=== PATIENT | male | born 1940 | race Caucasian/White ===

== ENCOUNTER 2025-07-29 12:15 | Emergency (ER) | payer MEDICARE, SELFPAY ==
--- OUTSIDE RECORDS SUMMARY | 2025-06-03 07:02 | XMS_ITS | Encounter Summary ---
Author Organization [facility] Address [address] [id number] Care Team Providers Care Beck Tender Name Role Phone Tapan Hill MD Primary Care Provid er Reason for Referral * Imaging (Routine) - Closed Specialty Diagnoses / Procedures Referred By Contac t Referred To Contact Radiology Diagnoses Cancer of oral cavity Procedures CT Soft Tissue Neck w IV Contrast Alexandro Azevedo PA [address] [address] Phone: tel: fax: Referral ID Status Reason Start Date Expiration Date Visits Re quested Visits Authorized [id number] Closed 03/11/2024 09/10/2025 1 1 * Imaging (Routine) - Closed Specialty Diagnoses / Procedures Referred By Contac t Referred To Contact Radiology Diagnoses Cancer of oral cavity Procedures CT Chest w IV Contrast Alexandro Azevedo PA [address] [address] Phone: tel: fax: Referral ID Status Reason Start Date Expiration Date Visits Re quested Visits Authorized [id number] Closed 03/11/2024 09/10/2025 1 1 Reason for Visit * Imaging (Routine) - Closed Specialty Diagnoses / Procedures Referred By Contac t Referred To Contact Radiology Diagnoses Cancer of oral cavity Procedures CT Soft Tissue Neck w IV Contrast Alexandro Azevedo, ESTHER [address] [place] [address] Phone: tel: fax: Referral ID Status Reason Start Date Expiration Date Visits Re quested Visits Authorized [id number] Closed 03/11/2024 09/10/2025 1 1 Encounter Details Date Type Department Care Team (Latest Contact Info) Description 06/03/2025 7:02 AM EDT - 06/03/2025 11:59 PM EDT Hospital Encounter [facility] [address] [place] [id number] Cancer of oral cavity ([facility]/HCC) Discharge Disposition: Home or Self Care Social History Tobacco Use Types Packs/Day Years Used Date Smoking Tobacco: Former Cigarettes 0.5 15 0 10/29/1957 - 1972 Passive Smoke Exposure: Past Smokeless Tobacco: Never Alcohol Use Standard Drinks/Week Comments Never 0 (1 standard drink = 0.6 oz pur e alcohol) PHQ-2 Answer Date Recorded Patient Health Questionnaire-2 Score 0 06/03/2025 PHQ-9 Answer Date Recorded Patient Health Questionnaire-9 Score 2 06/03/2025 Sex and Gender Information Value Date Recorded Sex Assigned at Not on file Legal Sex Male 6:55 PM EDT Gender Identity Not on file Sexual Orientation Not on file documented as of this encounter Functional Status * Are you deaf or do you have serious difficulty hearing? Answer Date of Assessment Author No 04/15/2021 1:20 PM BENJAMINT Adonay Mejias mma K * Are you blind or do you have serious difficulty seeing, even when wearing glasses? Answer Date of Assessment Author No 04/15/2021 1:20 PM BENJAMINT Adonay Mejias mma K * Do you have serious difficulty walking or climbing stairs? Answer Date of Assessment Author No 04/15/2021 1:20 PM Adonay Graves mma K * Do you have serious difficulty dressing or bathing? Answer Date of Assessment Author No 04/15/2021 1:20 PM BENJAMINT Adonay Mejias mma K * Because of a physical, mental, or emotional condition, do you have serious difficulty doing errandsalone such as visiting the doctor? Answer Date of Assessment Author No 04/15/2021 1:20 PM Adonay Graves K * Over the past 2 weeks, how often have you been bothered by any of the following problems? Question Answer Date of Assessment Author Little interest or pleasure in doing things Not at all 06/03/2025 9:09 AM Olga Lidia Elizalde Feeling down, depressed, or hopeless Not at all 06/03/2025 9:09 AM Olga Lidia Elizalde Patient Health Questionnaire -2 Score 0 06/03/2025 9:09 AM Olga Lidia Elizalde * Question Answer Date of Assessment Author Trouble falling or staying asleep, or sleeping too much Not at all 06/03/2025 9:09 AM lOga Lidia Elizalde Feeling tired or having little energy Several days 06/03/2025 9:09 AM Olga Lidia Elizalde Poor appetite or overeating Several days 06/03/2025 9: 09 AM Olga Lidia Elizalde Feeling bad about yourself - or that you are a failure or have let yourself or your family down Not at all 06/03/2025 9:09 AM Olga Lidia Elizalde Trouble concentrating on things, such as reading the newspaper or watching television Not at all 06/03/2025 9:09 AM Olga Lidia Elizalde Moving or speaking so slowly that other people could have noticed? Or the opposite - being so fidgety or restless that you have been moving around a lot more than usual. Not at all 06/03/2025 9:09 AM Olga Lidia Elizalde Thoughts that you would be better off or hurting yourself in some way Not at all 06/03/2025 9:09 AM Aliyah Elizalde Patient Health Questionnaire-9 Score 2 06/03/2025 9:09 AM Love Elizalde * How difficult have these problems made it for you to do your work, take care of things at home, or get along with other people? Answer Date of Assessment Author Very difficult 06/03/2025 9:09 AM Adonay Elizalde * How difficult have these problems made it for you to do your work, take care of things at home, or get along with other people? Answer Date of Assessment Author Somewhat difficult 06/03/2025 9:09 AM EDT Olga Lidia Phelan documented as of this encounter Mental Status * Because of a physical, mental, or emotional condition, do you have serious difficulty concentrating, remembering, or making decisions? (5 years old or older) Answer Entry Date Author No 04/15/2021 1:20 PM EDAdonay Pickard documented in this encounter Medications at Time of Discharge acetaminophen (Tylenol) 325 MG tablet Take 2 tablets by mouth every 6 hours as needed. aluminum & magnesium hydroxide-simethico ne (Mylanta) 200-200-20 MG/5ML oral suspension Take 30 mL by mouth every 6 (six) hours if needed for indigestion or heartburn. ASPIRIN 81 PO Take 1 tablet by mouth 1 (one) time each day. atorvastatin (Lipitor) 80 MG tablet 09/02/2022 bisoprolol (Zebeta) 5 MG tablet Take 0.5 tablets (2.5 mg) by mouth 1 (one) time each day. 10/24/2021 carboxymethylcellul ose sod PF (Refresh Celluvisc) 1 % ophthalmic solution dropperette Inject 1 drop into the eye 3 times a day as needed. 03/30/2025 Cetirizine HCl Childrens Alrgy 1 MG/ML syrup 10 mL by Enteral route. 03/29/2025 doxazosin (Cardura) 1 MG tablet 1 tablet by Enteral route. 01/17/2025 famotidine (Pepcid) 20 MG tablet Take 1 tablet by mouth 2 times a day. FIBER PO 480 mL by Enteral route. 03/30/2025 FIBER PO 240 mL by Enteral route. 03/30/2025 finasteride (Proscar) 5 MG tablet 1 tablet by Enteral route. 01/16/2025 hydrOXYzine HCl (Atarax) 25 MG tablet Take 2 tablets (50 mg) by mouth. Takes 2 at bedtime rupszljqrpzr-racb-g inerals-folic acid (Centrum Silver, geriatric,) tablet Take 1 tablet by mouth 1 (one) time each day. ondansetron (Zofran) 4 MG tablet Take 1 tablet (4 mg) by mouth twice a day. polyethylene glycol (Miralax) 17 GM/SCOOP powder Take 17 g by mouth. Sennosides 8.6 MG capsule Take by mouth. simethicone (Mylicon) 80 MG chewable tablet Chew 1 tablet every 6 hours as needed. apixaban (Eliquis) 5 MG tablet Take 1 tablet (5 mg) by mouth 2 (two) times a day. 180 tablet 3 06/27/2024 06/09/20 25 carvedilol (Coreg) 3.125 MG tablet Take 1 tablet (3.125 mg total) by mouth 2 (two) times a day with meals. 60 tablet 11 04/15/2021 06/15/20 25 chlorhexidine (Peridex) 0.12 % solution SWISH AND SPIT 15 ML BY MOUTH OR THROAT TWICE DAILY DIRECTED 03/30/2025 06/19/20 25 Doxylamine Succinate, Sleep, (UNISOM PO) Take 23 mg by mouth 1 (one) time each day. 06/17/20 25 erythromycin (Romycin) 5 MG/GM ophthalmic ointment Apply 1 Application to both eyes every night. 3.5 g 3 07/15/2024 06/15/20 25 HYDROcodone-acetami nophen (Newfield) 7.5-325 MG tablet 10/24/2022 0 25 linaCLOtide (Linzess) 290 MCG capsule Take by mouth. 06/19/20 25 loratadine (Claritin) 10 MG tablet Take 1 tablet by mouth. 06/19/20 25 Melatonin 5 MG tablet tablet Take 2 tablets (10 mg) by mouth 1 (one) time each day. 05/09/2021 06/15/20 25 methocarbamol (Robaxin) 500 MG tablet 1 tablet (500 mg). 04/20/2022 06/17/20 25 ondansetron ODT (Zofran-ODT) 4 MG disintegrating tablet 04/20/2022 06/15/20 25 rosuvastatin (Crestor) 10 MG tablet Take 1 tablet (10 mg) by mouth 1 (one) time each day. 06/17/20 25 documented as of this encounter Miscellaneous Notes * Ricarda Coley - 06/03/2025 7:09 AM EDT Images from the original note were not included. 1639 Caring for Yourself after Contrast Imaging If you had ORAL contrast: ? You can go back to your normal diet and activities as tolerated. ? Drink plenty of fluids, unless told otherwise. If you had IV contrast: ? You can go back to your normal diet and activities as tolerated. ? Drink plenty of fluids, unless told otherwise. ? Leave a bandage on the site for 30 minutes (where the IV was inserted or blood was drawn). If you had Intravesical (bladder) contrast: ? Return to normal diet and activity. What you need to know about delayed reaction to IV contrast What is IV Contrast? ? Contrast is a dye that is put into your body through an IV. ? It is used for imaging scans such as CT scans and MRIs. ? The contrast makes blood vessels, organs and other parts of your body show up better on the scan. What do I need to do after IV contrast? ? Drink lots of fluids. This will help flush the contrast out of your system. ? Drink 2-3 extra glasses or bottles of water within 4 hours of your scan. What is a contrast reaction? ? A contrast reaction is a bad side effect from the contrast dye. ? It is rare but it does happen. ? They can be mild - such as sneezing, itching, or hives. ? They can be severe - such as trouble breathing, throat swelling, and irregular heart beat. When do these reactions happen? ? They often happen right after the contrast is injected. ? Some happen hours after going home. Go to the nearest Emergency Department right away if you have any of these symptoms after you leavethe clinic or hospital. ? Sneezing ? Itching in your mouth, throat, eyes, ears, or skin ? Rash or hives ? Throwing up or stomach sickness ? High heart rate or ?racing? of your heart ? Feeling dizzy or woozy ? Feeling short of breath or like you can?t take a deep breath ? Feeling very anxious for no other reason It is very important that these reactions be treated. Tell the doctor or nurse that you are having a reaction to IV contrast dye. Do not ignore any sign of a reaction! All reactions must be assessed by a doctor. Call 911 if you are alone and your reaction is more than mild sneezing or itching. If you have a mild reaction, call to speak with a Radiologist, explain that you havehad a contrast reaction, as this needs to be added to your medical record. documented in this encounter Plan of Treatment Upcoming Encounters Date Type Department Care Team ([facility] st Contact Info) Description 08/06/2025 9:30 AM EDT Clinical Support [facility] [address] [phone] 08/06/2025 9:50 AM EDT Office Visit [facility] [address] [phone] Crystal Viera MD [address] [place] [address] [facility] [address] [place] [address] 08/06/2025 11:30 AM EDT Appointment [facility] Infusion [address] [place] [address] 09/14/2025 9:00 AM EST Appointment [facility] Radiology [address] [place] [phone] 09/14/2025 10:00 AM EST Office Visit [facility] [address] [phone] [facility]or [facility] [address] [facility] [address] [place] [phone] 09/14/2025 11:00 AM EST Appointment [facility] Radiation 800 [facility]. [id number] [place] [phone] Inna Chowdary MD 800 [facility] [address] [place] [phone] 09/17/2025 10:30 AM EST Office Visit [facility] [address] [place] [address] Crystal Viera MD 800 [facility] [address] [place] [address] 09/29/2025 2:20 PM EST Office Visit [facility] [address] [place] [address] Dio Burger MD [address] [place] [address] documented as of this encounter Procedures Procedure Name Priority Date/Time Associated Diagnosis Comments CT CHEST W IV CONTRAST Routine 06/03/2025 7:54 AM EDT Cancer of oral cavity (CMS/HCC) CT SOFT TISSUE NECK W IV CONTRAST Routine 06/03/2025 7:54 AM EDT Cancer of oral cavity (CMS/HCC) documented in this encounter Results * CT Soft Tissue Neck w IV Contrast (06/03/2025 7:54 AM EDT) Anatomical Region Laterality Modality Neck Computed Tomogra phy Impressions 06/03/2025 2:37 PM EDT Recurrent floor of mouth mass which extends into the adjacent mandible, likely invades the residual tongue, and extends posteriorly to the level of the right carotid. Adjacent left level one lymphadenopathy. Kumar Hernandez M.D. This report has been electronically signed and verified by the Radiologist whose name is printed above. This report contains privileged and confidential information and is intended solely for the use of the individual or entity to which it is addressed. If you are not the intended recipient of this report, you are hereby notified that any copying, distribution, dissemination or action taken in relation to the contents of this report is strictly prohibited and may be unlawful. If you have received this report in error, please notify the sender immediately at [phone] and permanently delete the original report and destroy any copies or printouts. Narrative 06/03/2025 2:37 PM EDT [facility] - Phone Outpatient NAME: Loi Lux DATE OF EXAM: 06/03/2025 Patient No: [id number] Physician: Braxton Date of : 1940 Past Medical/Surgical History (entered by technologist): Symptoms/Reason For Exam (entered by technologist): Head/neck cancer, staging Tech Notes (entered by technologist): with contrast iohexol (OMNIPaque) 300 MG/ML injection 100 mL; Additional History (per [facility]): Automated exposure control was used for radiation dose reduction. 3D Image Post Processing, including MIPs when applicable, was performed EXAMINATION: CT NECK with CONTRAST TECHNIQUE: Images were obtained through the neck with the administration of contrast. Total DLP: 1192 mGy centimeters. Radiation dose reduction technique(s) were used. CLINICAL INFORMATION: Staging COMPARISON: CT dated 03/11/2024 FINDINGS: Postsurgical changes status post bilateral neck dissection and right oral cavity flap reconstruction. Evidence of prior hemiglossectomy. Posttreatment changes throughout the neck status post prior radiation. Since prior CT dated 03/11/2024, interval development of ulcerative soft tissue lesion along the right floor of mouth, measuring approximately 3.4 x 3.4 x 2.4 cm (series 2 image 65, series 7 image 48), which abuts the right mandible with increased erosive changes, particularly surrounding the lingual margin. Mass is inseparable from the residual tongue with leftward mass effect. Likely underlying invasion along the lateral margin (series 7 image 50, with loss of fat planes. Lesion likely extends posteriorly along the fat graft to the level of the carotid (series 4 image 390). Additional suspicious left level one node measuring 1 x 0.9 cm (series 2 image 63), new from prior. The airway remains patent. Again seen are numerous right-sided carotid stents with region of severe narrowing distally (series 2 image 65), unchanged from prior. Bilateral calcified and noncalcified atherosclerosis with additional area of moderate narrowing within the mid left internal carotid artery. No suspicious lytic or sclerotic lesions within the skull base or cervical spine. Please see separate chest for detailed evaluation. Procedure Note Kumar Hernandez MD - 06/03/2025 [facility] - Phone Outpatient NAME: Loi Lux DATE OF EXAM: 06/03/2025 Patient No: [id number] Physician: Braxton Date of : 1940 Past Medical/Surgical History (entered by technologist): Symptoms/Reason For Exam (entered by technologist): Head/neck cancer,staging Tech Notes (entered by technologist): with contrast iohexol (OMNIPaque)300 MG/ML injection 100 mL; Additional History (per [facility]): Automated exposure control was used for radiation dose reduction. 3D Image Post Processing, including MIPs when applicable, was performed EXAMINATION: CT NECK with CONTRAST TECHNIQUE: Images were obtained through the neck with the administrationof contrast. Total DLP: 1192 mGy centimeters. Radiation dose reductiontechnique(s) were used. CLINICAL INFORMATION: Staging COMPARISON: CT dated 03/11/2024 FINDINGS: Postsurgical changes status post bilateral neck dissection and right oralcavity flap reconstruction. Evidence of prior hemiglossectomy.Posttreatment changes throughout the neck status post prior radiation. Since prior CT dated 03/11/2024, interval development of ulcerative softtissue lesion along the right floor of mouth, measuring approximately 3.4x 3.4 x 2.4 cm (series 2 image 65, series 7 image 48), which abuts theright mandible with increased erosive changes, particularly surroundingthe lingual margin. Mass is inseparable from the residual tongue withleftward mass effect. Likely underlying invasion along the lateral margin(series 7 image 50, with loss of fat planes. Lesion likely extendsposteriorly along the fat graft to the level of the carotid (series 4image 390). Additional suspicious left level one node measuring 1 x 0.9 cm (series 2image 63), new from prior. The airway remains patent. Again seen are numerous right-sided carotid stents with region of severenarrowing distally (series 2 image 65), unchanged from prior. Bilateralcalcified and noncalcified atherosclerosis with additional area ofmoderate narrowing within the mid left internal carotid artery. No suspicious lytic or sclerotic lesions within the skull base or cervicalspine. Please see separate chest for detailed evaluation. IMPRESSION: Recurrent floor of mouth mass which extends into the adjacent mandible,likely invades the residual tongue, and extends posteriorly to the levelof the right carotid. Adjacent left level one lymphadenopathy. Kumar Hernandez M.D. This report has been electronically signed and verified by the Radiologistwhose name is printed above. This report contains privileged and confidential information and isintended solely for the use of the individual or entity to which it isaddressed. If you are not the intended recipient of this report, you arehereby notified that any copying, distribution, dissemination or actiontaken in relation to the contents of this report is strictly prohibitedand may be unlawful. If you have received this report in error, pleasenotify the sender immediately at [phone] and permanently delete theoriginal report and destroy any copies or printouts. us Alexandro SANTANA IM CT PROCEDURES Final Result * CT Chest w IV Contrast (06/03/2025 7:54 AM EDT) Anatomical Region Laterality Modality Chest Computed Tomogra phy Impressions 06/03/2025 8:29 AM EDT 1. Acute nondisplaced T12 superior endplate fracture with no significant loss of vertebral body height. 2. No change in the interstitial lung disease. CRITICAL RESULT: No. COMMUNICATION: Per this written report. Drafted by Jona Webster MD on 06/03/2025 8:22 AM Final report signed by Jona Webster MD on 06/03/2025 8:29 AM Narrative 06/03/2025 8:29 AM EDT CLINICAL INDICATION: Head/neck cancer, staging TECHNIQUE: Imaging of the chest was performed, from thoracic inlet through upper abdomen, using spiral technique, following administration of IV contrast, Omnipaque 300, 100 mL according to the CT Chest protocol. Total DLP (Dose-Length Product): 1192.42 mGy.cm. Please note: The reported value represents the total of one or more individual components during the CT acquisition on this date and at this time, and as such, the same value may appear in more than one CT report depending on the interpreting/reporting physicians. COMPARISON: None. FINDINGS: Chest: Aorta/Vessels: Mild atherosclerosis of the aorta and its branches. Right-sided carotid artery stent is patent. No large central filling defect within the pulmonary arteries to suggest pulmonary embolism. Pleural/Pericardial Space: No pneumothorax. No pleural effusions. No pericardial effusion. Lymph Nodes: No lymphadenopathy within the chest. Lungs: Mild peripheral interstitial pulmonary opacities are present on the right greater than left in the lower lungs. No significant pulmonary nodule is identified.. Heart/Mediastinum: Cardiomegaly. No pericardial effusion. Left chest wall AICD. Moderate coronary artery calcifications. Chest Wall: No chest wall hematoma or contusion. Bones: Acute nondisplaced T12 superior endplate fracture on image 119, series 6 . Median sternotomy changes. Osteopenia. Upper Abdomen: Gastrostomy tube is in expected location. Low-density area in the liver likely represents a hepatic cyst. A low-density area in the left kidney likely represents a simple cyst. Procedure Note Jona Webster MD - 06/03/2025 CLINICAL INDICATION: Head/neck cancer, staging TECHNIQUE: Imaging of the chest was performed, from thoracic inlet through upperabdomen, using spiral technique, following administration of IV contrast,Omnipaque 300, 100 mL according to the CT Chest protocol. Total DLP (Dose-Length Product): 1192.42 mGy.cm. Please note: The reportedvalue represents the total of one or more individual components during theCT acquisition on this date and at this time, and as such, the same valuemay appear in more than one CT report depending on theinterpreting/reporting physicians. COMPARISON: None. FINDINGS: Chest: Aorta/Vessels: Mild atherosclerosis of the aorta and its branches.Right-sided carotid artery stent is patent. No large central fillingdefect within the pulmonary arteries to suggest pulmonary embolism. Pleural/Pericardial Space: No pneumothorax. No pleural effusions. Nopericardial effusion. Lymph Nodes: No lymphadenopathy within the chest. Lungs: Mild peripheral interstitial pulmonary opacities are present on theright greater than left in the lower lungs. No significant pulmonarynodule is identified.. Heart/Mediastinum: Cardiomegaly. No pericardial effusion. Left chest wallAICD. Moderate coronary artery calcifications. Chest Wall: No chest wall hematoma or contusion. Bones: Acute nondisplaced T12 superior endplate fracture on image 119,series 6 . Median sternotomy changes. Osteopenia. Upper Abdomen: Gastrostomy tube is in expected location. Low-density areain the liver likely represents a hepatic cyst. A low-density area in theleft kidney likely represents a simple cyst. IMPRESSION: 1. Acute nondisplaced T12 superior endplate fracture with no significantloss of vertebral body height. 2. No change in the interstitial lung disease. CRITICAL RESULT: No. COMMUNICATION: Per this written report. 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, unspecified site documented in this encounter Administered Medications Inactive Administered Medications - up to 3 most recent administrations Medication Order MAR Action Action Date Dose Rate Site iohexol (OMNIPaque) 300 MG/ML injection 100 mL 100 mL, Intravenous, Once in imaging, 1 dose, Starting on Sun06/03/25 at 0709, Until Sun06/03/25 at 0741, Routine, Imaging Protocol Orders Given 06/03/2025 7:41 AM EDT 100 mL documented in this encounter Additional Health Concerns Assessment Noted Time PHQ-9 Depression Total Score: 2 06/03/20 25 9:09 AM EDT A fall risk assessment has been complete d for the patient 06/03/2025 9:11 AM EDT A Body Mass Index follow-up plan has been documented for the patient 07/21/2024 10:08 AM EDT documented as of this encounter Care Teams Beck Tender Relationship Specialty Start Date End Date Tapan Hill MD [address] [place] [address] PCP - General 03/11/21 documented as of this encounter
--- OUTSIDE RECORDS SUMMARY | 2025-06-03 10:00 | XMS_ITS | Encounter Summary ---
Author Organization [facility] Address [address] [place] [address] Care Team Providers Care Digital Circuit Designer Name Role Phone Tapan Hill MD Primary Care Provid Reason for Referral * Consultation (Routine) - Closed Specialty Diagnoses / Procedures Referred By Jw t Referred To Contact Radiation Oncology Diagnoses Cancer of oral cavity Rosio Galloway MD [address] [address] Phone: tel: fax: [facility] [id number] [place] [address] Phone: tel: fax: Referral ID Status Reason Start Date Expiration Date V isits Requested Visits Authorized [id number] Closed Specialty Services Required 06/03/2025 12/03/2026 1 1 * Consultation (Routine) - Closed Specialty Diagnoses / Procedures Referred By Contmariana t Referred To Contact Medical Oncology / Hematology and Oncology Diagnoses Cancer of oral cavity Rosio Galloway MD [address] [address] Phone: tel: fax: [facility] [address] [place] [address] Phone: tel: fax: Referral ID Status Reason Start Date Expiration Date V isits Requested Visits Authorized [id number] Closed Specialty Services Required 06/03/2025 12/03/2026 1 1 * Imaging (Routine) - Authorized Specialty Diagnoses / Procedures Referred By Jw t Referred To Contact Radiology Diagnoses Cancer of oral cavity Procedures CT Angio Abdomen Pelvis w Runoff Rosio Galloway MD [address] [address] Phone: tel: fax: Referral ID Status Reason Start Date Expiration Date V isits Requested Visits Authorized [id number] Authorized 06/03/2025 12/03/2026 1 1 * Imaging (Routine) - Authorized Specialty Diagnoses / Procedures Referred By Jw de la cruz Referred To Contact Diagnoses 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) Procedures PET/CT FDG Skull Base To Mid Thigh Rosio Galloway MD [address] [address] Phone: tel: fax: Referral ID Status Reason Start Date Expiration Date V isits Requested Visits Authorized [id number] Authorized 06/03/2025 12/03/2026 2 2 Reason for Visit * Reason Comments Follow-up Encounter Details Date Type Department Care Team ([facility] st Contact Info) Description 06/03/2025 10:00 AM EDT Office Visit [facility] [address] [place] [address] Rosio Galloway MD [address] [address] Cancer of oral cavity (CMS/HCC); 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) Social History Tobacco Use Types Packs/Day Years Used Date Smoking Tobacco: Former Cigarettes 0.5 15 0 10/29/1957 - 1972 Passive Smoke Exposure: Past Smokeless Tobacco: Never Tobacco Cessation:Counseling Given: Not Answered Alcohol Use Standard Drinks/Week Comments Never 0 [...] on file documented as of this encounter Last Filed Vital Signs Vital Sign Reading Time Taken Comments Blood Pressure 117/64 06/03/2025 9:07 AM EDT Pulse 61 06/03/2025 9:07 AM EDT Temperature - - Respiratory Rate 16 06/03/2025 9:07 AM EDT Oxygen Saturation 98% 06/03/2025 9:07 AM EDT Inhaled Oxygen Concentration - - Weight - - Height 177.8 cm (5' 10 ) 06/03/2025 9:07 AM EDT Body Mass Index - - documented in this encounter Functional Status * Are you deaf or do you have serious difficulty hearing? Answer Date of Assessment Author No 04/15/2021 1:20 PM EDT Adonay Mejias mma K * Are you blind or do you have serious difficulty seeing, even when wearing glasses? Answer Date of Assessment Author No 04/15/2021 1:20 PM EDT Adonay Mejias mma K * Do you have serious difficulty walking or climbing stairs? Answer Date of Assessment Author No 04/15/2021 1:20 PM EDT Adonay Mejias mma K * Do you have serious difficulty dressing or bathing? Answer Date of Assessment Author No 04/15/2021 1:20 PM EDT Adonay Mejias mma K * Because of a physical, mental, or emotional condition, do you have serious difficulty doing errandsalone such as visiting the doctor? Answer Date of Assessment Author No 04/15/2021 1:20 PM EDT Adonay Mejias mma K * Over the past 2 weeks, [...] much Not at all 06/03/2025 9:09 AM Olga Lidia Elizalde Feeling tired or having little [...] Assessment Author Somewhat difficult 06/03/2025 9:09 AM Olga Lidia Elizalde documented as of this encounter Mental Status * Because of a physical, mental, or emotional condition, do you have serious difficulty concentrating, remembering, or making decisions? (5 years old or older) Answer Entry Date Author No 04/15/2021 1:20 PM EDT Adonay Mejias documented in this encounter Miscellaneous Notes * Progress Notes - Brooklynn Munoz - 06/03/2025 10:00 AM EDT Images from the original note were not included. Chief Complaint Patient presents with Follow-up Loi Lux is a 85 y.o. male who presents to our clinic today for follow up evaluation. 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 Singh in [place], [place]. The patient had postoperative radiation therapy performed by Dr. Pradip Miller at [facility]. 1990 - reconstruction with rectus flap, right iliac crest bone graft in [place] 07/08/2020 - seen by Vascular Surgery at (Dr. Bingham) for carotid occlusion (right side 100%, leftside 50%). 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 male who presents to our clinic today for follow up evaluation. He is here in a wheelchair with his 2 family members. He is well known to our clinic secondary to hishistory of head neck malignancy with multiple surgeries, a right neck dissection, and left neck dissection. The most recent cancer treatment involved a level 2-5 neck dissection with 60Gy radiation for SCC of left neck nodes. 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 Patient and family state that was hospitalized 2 months ago in rehab for a broken ankle. Providers noticed a scabbing lesion along the right floor of his mouth and tongue region. Patient was seen by an ent out in [place]. Biopsy of the lesion unfortunately came back positive for squamous cell carcinoma. Patient is currently PEG tube-dependent and has limited speech and is unable to swallow. Admits to increased fatigue. Denies headaches, recent weight loss, night sweates, fever, otalgia. His height is 1.778 m (5' 10 ). His blood pressure is 117/64 and his pulse is 61. His respiration is 16 and oxygen saturation is 98%. Past Medical History: Diagnosis Date COVID-19 09/2023 Essential (primary) hypertension Hypertension Heart failure Inflammatory liver disease, unspecified Hepatitis Lower back pain Personal history of other diseases of the circulatory system History of coronary artery disease Personal history of other diseases of the musculoskeletal system and connective tissue History of spinal stenosis Pure hypercholesterolemia, unspecified High cholesterol Stroke (CMS/HCC) Stroke (CMS/HCC) Oncology History No history exists. He has a past surgical history that includes Tongue surgery (N/A); Other surgical history (N/A); Mandible surgery (N/A); Rotator cuff repair (N/A); Skin cancer excision (N/A); cardiac stent; Coronaryartery bypass graft; Feeding Tube Placement; Cataract extraction w/ intraocular lens implant (Right, 09/21/2020); prosthodontic procedure; Colonoscopy; Coronary stent placement (2020); Leg Surgery; and Mouth Biopsy. His family history includes Cancer in his brother and sister; Cardiac disorder in an other family member; Cataracts in his brother and sister; Heart disease in his brother, father, mother, and sister; Hypertension in an other family member; Macular degeneration in his sister. He reports that he quit smoking about 52 years ago. His smoking use included cigarettes. He startedsmoking about 67 years ago. He has a 7.5 pack-year smoking history. He has been exposed to tobacco smoke. He has never used smokeless tobacco. He reports no history of alcohol use. Nutrition Assessment Anthropometrics: Wt Readings from Last 3 Encounters: 03/11/24 76.5 kg (168 lb 10.4 oz) 03/03/24 75.7 kg (166 lb 14.2 oz) 08/30/23 76.4 kg (168 lb 6.9 oz) Ht Readings from Last 1 Encounters: 06/03/25 1.778 m (5' 10 ) BMI Readings from Last 1 Encounters: 06/03/25 24.20 kg/m?? Biochemical: Lab Results Component Value Date GLUCOSE 71 04/02/2024 CALCIUM 9.3 04/02/2024 NA 142 04/02/2024 K 4.4 04/02/2024 CO2 28 04/15/2021 CL 105 04/02/2024 BUN 16 04/02/2024 CREATININE 0.80 04/02/2024 PHYSICAL EXAMINATION: General: Healthy-appearing 85 y.o. patient, alert and oriented x3, in no acute distress, well nourished, well developed. Psychiatric evaluation: Normal mood and affect, very pleasant and cooperative. Nasal cavity examination: Septum is midline. Oral cavity examination: Trismus with 6cm orifice. 10cm lesion appreciated along the floor of mouthand alveolar ridge that extends from the right mandible to midline. Lesion is firm, exophytic areasand ulcerated, tender to palpation. Exposure dental abutments along the lower midline. He has extensive postoperative oral cavity changes. Neck: firm neck evidence of post-radiation, lymphedema appreciated midline Eyes: Extraocular movements are intact bilaterally. PERRLA. Neurological examination: Cranial nerves II-XII are grossly intact. Skin of the neck and face: did not reveal any evidence of significant rashes or suspicious appearing nevi or other concerning lesions. Endocrine examination: I do not feel any thyroid nodules. No thyromegaly. Respiratory: chest is symmetrical, breathing comfortably without effort. The patient has been counseled on tobacco cessation: Not Applicable Diagnosis Plan 1. Cancer of oral cavity ([facility]) Clinic Appointment Request Follow up; ROSIO GALLOWAY CT 06/03/25: IMPRESSION/PLAN: It was a pleasure to see Mr. Lux. Unfortunately it appears his cancer has returned. Exam findings revealed an extensive right 10cm lesion that extends from the floor of mouth/alveolar anterior into midline. CT further demonstrates tumor extension into the body and symphysis of the mandible. I suspect this may have stemmed from the lesion around the implant discovered last year. At this point, a surgical procedure would entail resection with reconstruction, most likely a fibula free flap, and removal of hardware. Due to his extensive surgical history and carotid stents, I question whetherhe'd have viable vessels for reanastomosis. Images and biopsy were reviewed with the patient and his family. We discussed the difficult position we're currently in regarding his surgical history, age, and health status. We discussed possible treatment options which would include surgical resection with either a bone reconstruction or soft tissue reconstruction, palliative radiation, or immunotherapy. We discussed that surgery may be possible, though we would need to obtain clearance. I recommended that the family take time to think aboutwhat their goals of care are moving forward. I will discuss this patient at our next tumor board tocome up with the best recommendation of treatment for him. In the meantime, we recommended that he follow up with his vascular surgeon. Plan for PET CT, CTA of lower extremities, CTA of the neck, Xray of the mandible. He should follow up with us once imaging has been completed. Brooklynn Munoz [employer] Digital speech recognition software was used to dictate this note and, despite all efforts to proofread, some dictation errors may occur. If you have any questions, please do not hesitate to contact me. Cosigned by Rosio Galloway MD at 06/04/2025 6:22 PM EDT Associated attestation - Rosio Galloway MD - 06/04/2025 6:22 PM EDT I saw and evaluated the patient with the medical/CNA PER DIEM/PA student. I discussed the case with the medical/CNA PER DIEM/PA student and agree with the findings and plan as documented. I personally performed the Examand Medical Decision Making. documented in this encounter Plan of Treatment Upcoming Encounters Date Type Department Care Team (Late st Contact Info) Description 08/06/2025 9:30 AM EDT Clinical Support [facility] [address] [facility], [address]nd [place] [address] 08/06/2025 9:50 AM EDT Office Visit [facility] [address] [facility], [address]nd [place] [address] Crystal Viera MD [address] [facility] Tamara Scott [facility] [address] [place] [address] 08/06/2025 11:30 AM EDT Appointment [facility] Infusion [address] [place] [phone] 09/14/2025 9:00 AM EST Appointment [facility] Radiology [address] [place] [phone] 09/14/2025 10:00 AM EST Office Visit [facility] [address] [facility] 2nd [place] [address] Rosio Galloway MD [address] [facility] [address] [place] [address] 09/14/2025 11:00 AM EST Appointment [facility] [address] [facility]. [id number] [place] [address] Inna Chowdary MD [address] [place] [address] [id number] [place] [address] 09/17/2025 10:30 AM EST Office Visit [facility] [address] [phone] Crystal Viera MD [address] [place] [address] [address] [place] [address] 09/29/2025 2:20 PM EST Office Visit [facility] [address] [place] [phone] Dio Burger MD [address] [place], [place] [id number] Scheduled Orders Name Type Priority Associated Diagnoses Orde r Schedule PET/CT FDG Skull Base To Mid Thigh Imaging Routine Cancer of oral cavity (CMS/HCC) 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) Expected: 06/03/2025 (Approximate), Expires: 12/05/2026 CT Angio Abdomen Pelvis w Runoff Imaging Routine Cancer of oral cavity (CMS/HCC) Expected: 06/03/2025 (Approximate), Expires: 12/05/2026 XR Panorex Imaging Routine Cancer of oral cavity ([facility]/HCC) Expected: 06/03/2025 (Approximate), Expires: 12/04/2026 Scheduled Referrals Name Type Priority Associated Diagnoses Order Schedule Ambulatory referral to Hematology Oncology/Medical Oncology Outpatient Referral Routine Cancer of oral cavity ([facility]/HCC) Expected: 06/03/2025 (Approximate), Expires: 12/05/2026 Ambulatory referral to Radiation Oncology Outpatient Referral Routine Cancer of oral cavity ([facility]/HCC) Expected: 06/03/2025 (Approximate), Expires: 12/05/2026 documented as of this encounter Visit Diagnoses Diagnosis Cancer of oral cavity Malignant neoplasm of mouth, unspecified site 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
--- OUTSIDE RECORDS SUMMARY | 2025-06-08 08:56 | XMS_ITS | Encounter Summary ---
Author Organization [facility] Address [address] [place] [address] Care Team Providers Care Line Operator Name Role Phone Tapan Hill MD Primary Care Provid er Reason for Referral * Diagnostic Imaging (Routine) - Closed Specialty Diagnoses / Procedures Referred By Jw de la cruz Referred To Contact Cardiology Diagnoses Carotid stenosis, asymptomatic, bilateral Procedures Duplex Carotid Ultrasound CAR Salvador Snow MD [address] [place] [address] Phone: tel: fax: [facility] NONINVASIVE LAB [address] [facility] [address] [place] [address] Phone: tel: fax: Referral ID Status Reason Start Date Expiration Date Visits Re quested Visits Authorized [id number] Closed 02/27/2024 06/08/2025 1 1 Reason for Visit * Diagnostic Imaging (Routine) - Closed Specialty Diagnoses / Procedures Referred By Jw t Referred To Contact Cardiology Diagnoses Carotid stenosis, asymptomatic, bilateral Procedures Duplex Carotid Ultrasound CAR Salvador Snow MD [address] [place] [address] Phone: tel: fax: [facility] NONINVASIVE LAB [address] [place] [address] Phone: tel: fax: Referral ID Status Reason Start Date Expiration Date Visits Re quested Visits Authorized [id number] Closed 02/27/2024 06/08/2025 1 1 Encounter Details Date Type Department Care Team (Late st Contact Info) Description 06/08/2025 8:56 AM EDT - 06/08/2025 11:59 PM EDT Hospital Encounter [facility] [address] [place] [address] Salvador Snow MD [address] [place] [address] Carotid stenosis, asymptomatic, bilateral Discharge Disposition: Home or Self Care Social History Tobacco Use Types Packs/Day Years Used Date Smoking Tobacco: Former Cigarettes 0.5 15 0 10/29/1957 - 10/29/1971 Passive Smoke Exposure: Past Smokeless Tobacco: Never Alcohol Use Standard Drinks/Week Comments Not Currently 2 (1 standard drink = 0.6 oz pure alcohol) Quit in 2020. Prior to drank approx 6 beers daily AUDIT-C Answer Date Recorded Q1: How often do you have a drink containing alcohol? Never 04/08/2024 Q2: How many drinks containi ng alcohol do you have on a typical day when you are drinking? Patient does not drink Frequency of Binge Drinking Not on file 03/29 Abuse Screen Answer Date Recorded Feels Unsafe at Home or Work/School no 04/08/2024 Feels Threatened by Someone no 03/29 Does Anyone Try to Keep You From Having Contact with Others or Doing Things Outside Your Home? no 04/08/2024 Physical Signs of Abuse Present no 04/08/2024 Housing Stability Answer Date Recorded Current Living Arrangements home 03/29 Potentially Unsafe Housing Conditions Not on poly e 04/08/2024 Disabilities Answer Date Recorded Difficulty Concentrating, Remembering or Making Decisions no 04/08/2024 Difficulty Managing Errands Independently no 04/08/2024 PHQ-2 Answer Date Recorded Retired PHQ-9: Brief Depression Severity Measure Score 0 04/08/2024 Sex and Gender Information Value Date Recorded Sex Assigned at Male 06/01/2025 9:27 AM EDT Legal Sex Male 11:18 AM EDT Gender Identity Not on file Sexual Orientation Straight 06/01/2025 9: 27 AM EDT Occupation Industry Job Start Date Job End Date [employer] Not on file Not on file Not o n file documented as of this encounter Last Filed Vital Signs Vital Sign Reading Time Taken Comments Blood Pressure - - Pulse - - Temperature - - Respiratory Rate - - Oxygen Saturation - - Inhaled Oxygen Concentration - - Weight 76.2 kg (168 lb) 06/08/2025 9:55 AM EDT Height 177.8 cm (5' 10 ) 06/08/2025 9:55 AM EDT Body Mass Index 24.11 06/08/2025 9:55 AM EDT documented in this encounter Medications at Time of Discharge acetaminophen (TYLENOL) 325 MG tablet Take 2 tablets by mouth Every 6 (Six) Hours As Needed. aluminum-magnesium hydroxide-simethic one (MAALOX/MYLANTA) 200-200-20 MG/5ML suspension Take 30 mL by mouth Every 6 (Six) Hours As Needed. apixaban (Eliquis) 5 MG tablet tabletIndications: Atrial Fibrillation - requiring full anticoagulation,re start 04/10/24 Take 1 tablet by mouth Every 12 (Twelve) Hours. 180 tablet 3 11/30/2021 aspirin 81 MG chewable tablet Administer 1 tablet per G tube Daily. atorvastatin (LIPITOR) 80 MG tablet Take 1 tablet by mouth Daily. bisacodyl (DULCOLAX) 10 MG suppository Insert 1 suppository into the rectum Daily. 01/16/2025 bisoprolol (ZEBeta) 5 MG tablet 0.5 tablets by Enteral route. 03/31/2025 carboxymethylcellu lose sod, PF, 1 % gel eye gel Inject 1 drop into the eye. 03/30/2025 Cetirizine HCl Childrens Alrgy 1 MG/ML solution solution 10 mL by Enteral route. 03/29/2025 doxazosin (CARDURA) 1 MG tablet 1 tablet by Enteral route. 01/17/2025 finasteride (PROSCAR) 5 MG tablet 1 tablet by Enteral route. 01/16/2025 HYDROcodone-acetam inophen (NORCO) 7.5-325 MG per tabletIndications: Coronary artery disease of [place] artery of [place] heart with stable angina pectoris Take 1 tablet by mouth Every 4 (Four) Hours As Needed for Moderate Pain . 25 tablet 10/24/2021 1:44 PM EST 10/24/2021 hydrOXYzine (ATARAX) 25 MG tablet Administer 2 tablets per G tube At Night As Needed (sleep). Multi-Vitamin tablet tablet 1 tablet by Enteral route Daily. ondansetron (ZOFRAN) 4 MG tablet 1 tablet by Enteral route Every 12 (Twelve) Hours As Needed. 03/30/2025 polyethylene glycol (MIRALAX) 17 g packet 17 g Daily As Needed (constipation). Triamcinolone Acetonide (NASACORT) 55 MCG/ACT nasal inhaler Administer 1 spray into the nostril(s) as directed by provider Daily. 01/07/2025 bisoprolol-hydroch lorothiazide (ZIAC) 5-6.25 MG per tablet Take 0.5 tablets by mouth Daily. 03/04/2025 5 Enoxaparin Sodium (LOVENOX) 80 MG/0.8ML solution prefilled syringe syringe Inject 0.8 mL under the skin into the appropriate area as directed Take As Directed. 2.4 mL 12/04/2024 5 FIBER PO 240 mL by Enteral route. 03/30/2025 5 documented as of this encounter Plan of Treatment Upcoming Encounters Date Type Department Care Team (Late st Contact Info) Description 08/12/2025 2:30 PM EDT Office Visit [facility] [address] [facility] [address] [place] [phone] Francy Mclean PA-C [address] [place] [address] 06/02/2026 11:00 AM EDT Appointment [facility] OUTPATIENT CENTER [address] [facility] [address] [place] [address] 06/02/2026 1:00 PM EDT Office Visit [facility] NEUROSURGERY [address] [facility] [address] [place] [id number] Salvador Snow MD [address] [facility] [address] [place] [address] 07/13/2026 1:15 PM EDT Office Visit [facility] C[facility]IOLOG[facility] [address] [facility] [address] [place] [address] Fortunato Watters MD [address] [facility] [address] [place] [address] documented as of this encounter Procedures Procedure Name Priority Date/Time Associated Diagnosis Comments DUPLEX CAROTID BILATERAL CAR - PERFORMED PROCEDURE Routine 06/08/2025 9:55 AM EDT Carotid stenosis, asymptomatic, bilateral documented in this encounter Results * DUPLEX CAROTID BILATERAL CAR - PERFORMED PROCEDURE (06/08/2025 9:55 AM EDT) Prox CCA PSV 68.8 cm/sec Prox CCA EDV 18.2 cm/sec Right Mid CCA PSV 79.1 cm/sec right Mid CCA EDV 15.7 cm/sec Dist CCA PSV 132.0 cm/sec Dist CCA EDV 33.6 cm/sec Prox ICA PSV 76.4 cm/sec Prox ICA EDV 21.7 cm/sec Mid ICA PSV 161.0 cm/sec Mid ICA EDV 32.9 cm/sec Dist ICA PSV 85.7 cm/sec Dist ICA EDV 16.5 cm/sec Vertebral A PSV 73.7 cm/sec Vertebral A EDV 17.2 cm/sec Prox SCLA PSV 149.0 cm/sec Prox CCA PSV 85.7 cm/sec Prox CCA EDV 11.2 cm/sec left Mid CCA PSV 59.5 cm/sec left Mid CCA EDV 16.2 cm/sec Dist CCA PSV 45.9 cm/sec Dist CCA EDV 15.7 cm/sec Prox ICA PSV 77.0 cm/sec Prox ICA EDV 26.1 cm/sec Mid ICA PSV 229.0 cm/sec Mid ICA EDV 53.5 cm/sec Dist ICA PSV 69.3 cm/sec Dist ICA EDV 12.8 cm/sec Vertebral A PSV 82.1 cm/sec Vertebral A EDV 16.2 cm/sec Prox SCLA PSV 162.0 cm/sec BH CV RIGHT MID CCA HIDDEN LRR 1 Right CCA STENT 1.00 cm/s ICA/CCA ratio 2.04 ICA/CCA ratio 3.85 Anatomical Region Laterality Modality Ultrasound Narrative 06/08/2025 4:35 PM EDT Right carotid stent imaging indicates mild (1-19%) restenosis. Mid stent velocity is now similar again to the 12/24/2022 study when it was 151 cm/s. The mid stent velocity in 2023 was 59 cm/s. Antegrade right vertebral flow. Left internal carotid artery demonstrates a 50-69% stenosis. Maximal velocity has increased from 158 cm/s in 2023 to 229 cm/s in the mid LICA. Antegrade left vertebral flow. Right carotid stent imaging indicates mild (1-19%) restenosis. Mid stent velocity now back to 59 cm/s, similar to 01/16/22 study. ( Was 151 12/24/22) Left internal carotid artery demonstrates a less than 50% stenosis by velocity. Ratio suggests 50-69%. Maximal velocity now 158 cm/s, was 137 cm/s on 12/24/22) Study Impression Right Other Conclusions: Right carotid stent imaging indicates mild (1-19%) restenosis. Left ICA: Imaging indicates 50-69% stenosis. Study Findings Right CCA Prox: No plaque visualized. Right CCA Mid: Stented vessel Right CCA Dist: Stented vessel. Right ICA Prox: Calcified plaque present. Right ICA Mid: Calcified plaque present. Right ICA Dist: No plaque visualized. Right Vertebral: Antegrade flow noted. Left CCA Prox: No plaque visualized. Left CCA Mid: Irregular heterogeneous plaque present. Left CCA Dist: Irregular heterogeneous plaque present. Left ICA Prox: Calcified plaque present. Left ICA Mid: No plaque visualized. Left ICA Dist: No plaque visualized. Left Vertebral: Antegrade flow noted. Technically difficult exam due to poor acoustic window from neck procedures. Previous exam performed on 02/22/24. A stent is present in the mid portion of the right CCA. Maximal in-stent velocities are 111/24 cm/sec. A stent is present in the distal portion of the right CCA/bulb. Maximal in-stent velocities are 116/28 cm/sec. Limited visualization of the right ICA due to shadowing. Bilateral ECA not visualized, noted on previous exam. Elevated velocities 229/53 cm/sec detected in the Left ICA with a ratio of 3.85. Antegrade flow detected in Vertebral Arteries. Additional Study Details The study is technically difficult for diagnosis. The quality of the study is limited due to poor acoustic window from neck procedures. us Salvador A Given CV VASCULAR ORDERABLES Final R esult documented in this encounter Visit Diagnoses Diagnosis Carotid stenosis, asymptomatic, bilateral documented in this encounter Care Teams Line Operator Relationship Specialty Start Date End Date Tapan Hill MD [address] [place] [address] PCP - General Family Medicine 04/29/21 06/08/25 documented as of this encounter
--- OUTSIDE RECORDS SUMMARY | 2025-06-08 14:30 | XMS_ITS | Encounter Summary ---
Author Organization [facility] Address [address] [place] [address] Care Team Providers Care Chemical Processing Laborer Name Role Phone Tapan Hill MD Primary Care Provid er Reason for Referral * Diagnostic Imaging (Routine) - Authorized Specialty Diagnoses / Procedures Referred By Jw de la cruz Referred To Contact Cardiology Diagnoses Carotid stenosis, asymptomatic, bilateral Procedures Duplex Carotid Ultrasound CAR Salvador Snow MD [address] [address] Phone: tel: fax: [facility] [address] [facility] 3rd [place] [address] Phone: tel: fax: Referral ID Status Reason Start Date Expiration Date V isits Requested Visits Authorized [id number] Authorized 06/08/2025 09/07/2026 1 1 Reason for Visit * Reason Comments Follow-up Carotid stenosis, as ymptomatic, bilateral Encounter Details Date Type Department Care Team (Late st Contact Info) Description 06/08/2025 2:30 PM EDT Office Visit [facility] NEUROS[facility]ERY [address] [phone] Salvador Snow MD [address] [place] [address] Carotid stenosis, asymptomatic, bilateral (Primary Dx) Social History Tobacco Use Types Packs/Day Years Used Date Smoking Tobacco: Former Cigarettes 0.5 15 0 10/29/1957 - 10/29/1971 Passive Smoke Exposure: Past Smokeless Tobacco: Never Tobacco Cessation:Counseling Given: Not Answered Alcohol Use Standard Drinks/Week Comments Not Currently [...] Industry Job Start Date Job End Date 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 [employer] Not on file Not on file Not o n file documented as of this encounter Last Filed Vital Signs Vital Sign Reading Time Taken Comments Blood Pressure 120/80 06/08/2025 2:10 PM EDT 130 /68 Pulse 76 06/08/2025 2:10 PM EDT Temperature 36.3 C (97.3 F) 06/08/2025 2:10 PM EDT Respiratory Rate - - Oxygen Saturation 98% 06/08/2025 2:10 PM EDT Inhaled Oxygen Concentration - - Weight 78 kg (172 lb) 06/08/2025 2:10 PM EDT STA NARESH Height 177.8 cm (5' 10 ) 06/08/2025 2:10 PM EDT STATED Body Mass Index 24.68 06/08/2025 2:10 PM EDT documented in this encounter Progress Notes * Gwendolyn, Salvador Palmer MD - 06/08/2025 2:30 PM EDT NAME: JASMYNE MULLER DOS: 06/08/2025 : 1940 PCP: Tapan Hill MD Chief Complaint: Chief Complaint Patient presents with Follow-up Carotid stenosis, asymptomatic, bilateral History of Present Illness: 85 y.o. male who is known to the neurointerventional service, having undergone prior right common carotid and internal carotid angioplasty/stent placement on 05/03/2021. Hispast medical history is notable for hypertension, extensive neck surgery/radiation for malignancy, atrial fibrillation, and prior stroke. While he does have extensive plaque at the left carotid bifurcation, there is was no hemodynamically significant (50% or less) stenosis, and his left carotid disease is being managed medically. Unfortunately, Mr. Guille duarte has had quite a katelyn course since I last saw him. 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 He is currently being evaluated at for his recurrent malignancy. He did have to stop his Eliquis for his ankle surgery, but tolerated this quite well from a neurologic standpoint. He is back onhis Eliquis/aspirin regimen, and presents today for follow-up of his carotid occlusive disease. He denies any new stroke or TIA-like symptoms. 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 about 30 years ago HFrEF (EF <20%) 04/29/2021 History of CVA (right parietal & occipital, left MCA) 04/29/2021 slight decrease inability with fine motor like buttons and History of transfusion self donated, no reaction HTN (hypertension) 04/29/2021 Hyperlipidemia Myocardial infarction Unknown S/P percutaneous endoscopic gastrostomy (PEG) tube placement Stroke 2019 Wears dentures Wears glasses Past Surgical History: Past Surgical History: Procedure Laterality Date ANKLE SURGERY Left 03/2025 BONE GRAFT CARDIAC CATHETERIZATION N/A 05/06/2021 Procedure: LEFT HEART CATH; Surgeon: Concepcion Hoff MD; Location: [facility]; Service: Cardiology; Laterality: N/A; CARDIAC CATHETERIZATION N/A 04/08/2024 Procedure: Left Heart Cath; Surgeon: Concepcion Hoff MD; Location: [facility]; Service: Cardiology; Laterality: N/A; CARDIAC DEFIBRILLATOR PLACEMENT 2020 CARDIAC ELECTROPHYSIOLOGY PROCEDURE N/A 03/24/2022 Procedure: Implant ICD - bi ventricular. BiV ICD. Hold Eliquis 2 days prior.; Surgeon: Fortunato Watters MD; Location: [facility] EP INVASIVE [facility]; Service: Cardiology; Laterality: N/A; CAROTID ENDARTERECTOMY 2020 CAROTID STENT 2020 CATARACT EXTRACTION Right COLONOSCOPY CORONARY ANGIOPLASTY Same as stent? CORONARY ARTERY BYPASS GRAFT N/A 10/18/2021 Procedure: MEDIAN STERNOTOMY, CORONARY ARTERY BYPASS GRAFTING X 3 with EVH OF THE RIGHT GREATER SAPHENOUS VEIN; Surgeon: Keo Azul MD; Location: [facility] OR; Service: Cardiothoracic; Laterality: N/A; CORONARY ARTERY BYPASS GRAFT 2020 CORONARY STENT PLACEMENT April 2021 ENDOSCOPY W/ PEG TUBE PLACEMENT N/A 05/04/2021 Procedure: ESOPHAGOGASTRODUODENOSCOPY WITH PERCUTANEOUS ENDOSCOPIC GASTROSTOMY TUBE INSERTION; Surgeon: Ayaz Darling MD; Location: [facility] ENDOS[facility]; Service: General; Laterality: N/A; INSERT / REPLACE / REMOVE PACEMAKER 2020 INTERVENTIONAL RADIOLOGY PROCEDURE Bilateral 05/03/2021 Procedure: Carotid Cerebral Angiogram; Surgeon: Salvador Snow MD; Location[facility]; Service: Interventional Radiology; Laterality: Bilateral; LYMPH NODE DISSECTION Left 08/25/2020 left side of neck MANDIBLE SURGERY 1980s MUSCLE FLAP 1980s PEG TUBE INSERTION Review of Systems: Review of Systems Constitutional: Negative for activity change, appetite change, chills, diaphoresis, fatigue, fever and unexpected weight change. HENT: Negative for congestion, dental problem, drooling, ear discharge, ear pain, facial swelling, hearing loss, mouth sores, nosebleeds, postnasal drip, rhinorrhea, sinus pressure, sinus pain, sneezing, sore throat, tinnitus, trouble swallowing and voice change. Eyes: Negative for photophobia, pain, discharge, redness, itching and visual disturbance. Respiratory: Negative for apnea, cough, choking, chest tightness, shortness of breath, wheezing andstridor. Cardiovascular: Negative for chest pain, palpitations and leg swelling. Gastrointestinal: Negative for abdominal distention, abdominal pain, anal bleeding, blood in stool,constipation, diarrhea, nausea, rectal pain and vomiting. Endocrine: Negative for cold intolerance, heat intolerance, polydipsia, polyphagia and polyuria. Genitourinary: Negative for decreased urine volume, difficulty urinating, dysuria, enuresis, flank pain, frequency, genital sores, hematuria and urgency. Musculoskeletal: Positive for arthralgias. Negative for back pain, gait problem, joint swelling, myalgias, neck pain and neck stiffness. Skin: Negative for color change, pallor, rash and wound. Allergic/Immunologic: Negative for environmental allergies, food allergies and immunocompromised state. Neurological: Negative for dizziness, tremors, seizures, syncope, facial asymmetry, speech difficulty, weakness, light-headedness, numbness and headaches. Hematological: Negative for adenopathy. Does not bruise/bleed easily. Psychiatric/Behavioral: Negative for agitation, behavioral problems, confusion, decreased concentration, dysphoric mood, hallucinations, self-injury, sleep disturbance and suicidal ideas. The patientis not nervous/anxious and is not hyperactive. Medications Current Outpatient Medications: acetaminophen (TYLENOL) 325 MG tablet, Take 2 tablets by mouth Every 6 (Six) Hours As Needed., Disp: , Rfl: aluminum-magnesium hydroxide-simethicone (MAALOX/MYLANTA) 200-200-20 MG/5ML suspension, Take 30 mL by mouth Every 6 (Six) Hours As Needed., Disp: , Rfl: apixaban (Eliquis) 5 MG tablet tablet, Take 1 tablet by mouth Every 12 (Twelve) Hours., Disp: 180 tablet, Rfl: 3 aspirin 81 MG chewable tablet, Administer 1 tablet per G tube Daily., Disp: , Rfl: bisacodyl (DULCOLAX) 10 MG suppository, Insert 1 suppository into the rectum Daily., Disp: , Rfl: bisoprolol-hydrochlorothiazide (ZIAC) 5-6.25 MG per tablet, Take 0.5 tablets by mouth Daily., Disp:, Rfl: carboxymethylcellulose sod, PF, 1 % gel eye gel, Inject 1 drop into the eye., Disp: , Rfl: Cetirizine HCl Childrens Alrgy 1 MG/ML solution solution, 10 mL by Enteral route., Disp: , Rfl: doxazosin (CARDURA) 1 MG tablet, 1 tablet by Enteral route., Disp: , Rfl: FIBER PO, 240 mL by Enteral route., Disp: , Rfl: finasteride (PROSCAR) 5 MG tablet, 1 tablet by Enteral route., Disp: , Rfl: HYDROcodone-acetaminophen (NORCO) 7.5-325 MG per tablet, Take 1 tablet by mouth Every 4 (Four) Hours As Needed for Moderate Pain . (Patient taking differently: Administer 1 tablet per G tube Every 4 (Four) Hours As Needed for Moderate Pain.), Disp: 25 tablet, Rfl: 0 hydrOXYzine (ATARAX) 25 MG tablet, Administer 2 tablets per G tube At Night As Needed (sleep)., Disp: , Rfl: Multi-Vitamin tablet tablet, 1 tablet by Enteral route Daily., Disp: , Rfl: ondansetron (ZOFRAN) 4 MG tablet, 1 tablet by Enteral route Every 12 (Twelve) Hours As Needed., Disp: , Rfl: polyethylene glycol (MIRALAX) 17 g packet, 17 g Daily As Needed (constipation)., Disp: , Rfl: Triamcinolone Acetonide (NASACORT) 55 MCG/ACT nasal inhaler, Administer 1 spray into the nostril(s)as directed by provider Daily., Disp: , Rfl: atorvastatin (LIPITOR) 80 MG tablet, Take 1 tablet by mouth Daily. (Patient not taking: Reported on06/08/2025), Disp: , Rfl: Enoxaparin Sodium (LOVENOX) 80 MG/0.8ML solution prefilled syringe syringe, Inject 0.8 mL under theskin into the appropriate area as directed Take As Directed., Disp: 2.4 mL, Rfl: 0 No current facility-administered medications for this visit. Facility-Administered Medications Ordered in Other Visits: Chlorhexidine Gluconate Cloth 2 % pads 1 application, 1 application , Topical, Q12H PRN, Vane Funk APRN Allergies: No Known Allergies Social Hx: Social History Tobacco Use Smoking status: Former Current packs/day: 0.00 Average packs/day: 0.5 packs/day for 15.0 years (7.5 ttl pk-yrs) Types: Cigarettes Start date: 10/29/1957 Quit date: 10/29/1971 Years since quittin.6 Passive exposure: Past Smokeless tobacco: Never Vaping Use Vaping status: Never Used Substance Use Topics Alcohol use: Not Currently Alcohol/week: 2.0 standard drinks of alcohol Comment: Quit in 2020. Prior to drank approx 6 beers daily Drug use: Never Family Hx: Family History Problem Relation Age of Onset Arthritis Mother Heart disease Mother Heart failure Father Hyperlipidemia Father Hypertension Father Heart disease Father Autoimmune disease Sister Heart disease Sister Arthritis Sister Heart disease Brother Hypertension Brother Arrhythmia Brother Heart attack Brother Heart disease Brother Hyperlipidemia Brother Hypertension Brother Hypertension Brother Heart disease Brother No Known Problems Maternal Grandmother No Known Problems Maternal Grandfather No Known Problems Paternal Grandmother No Known Problems Paternal Grandfather Review of Imaging: Carotid duplex dated 06/08/2025 from [facility] was reviewed along with its corresponding radiologic report. Comparison is made to multiple prior carotid duplex examinations, the most recent being on 2024. Additionally, comparison is made to catheter angiogram dated 05/04/2021. The right carotid stent construct remains widely patent, without recurrent hemodynamically significant stenosis or complicating features. Peak velocities within the right carotid vasculature are 161/33 cm/s, with an ICA/CCA ratio of 2.0 (was 119/32 cm/s, ratio 1.4). The right external carotid artery ischronically occluded at its origin. There remains heterogeneous plaque at the left carotid bifurcation, and while there has been some progression of disease over the years, this still corresponds to a nonhemodynamically significant (likely in the 50% range) stenosis based on prior carotid duplex examinations and catheter angiogram. Peak velocities within the left carotid vasculature are 229/54 cm/s, within the ICA/CCA ratio of 3.9 (was 158/24 cm/s, ratio 3.9). The left external carotid artery is not clearly seen on the carotid duplex examination, and there was subtotal occlusion of the left external carotid artery on the prior catheter angiogram. Physical Examination: Vitals: 06/08/25 1410 BP: 120/80 Pulse: 76 Temp: 97.3 ??F (36.3 ??C) SpO2: 98% General Appearance: Well developed, well nourished, well groomed, alert, and cooperative. Neurological examination: Mr. Muller is alert and follows commands. 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 He has symmetric strength in the upper and lower extremities, but he is wheelchair-bound at this point secondary to his ankle fracture. Diagnoses/Plan: Mr. Muller is a 85 y.o. male status post angioplasty/stent placement for tandem right common carotid and internal carotid cervical stenoses in 2020. He has a history of a head neck malignancy, and has undergone multiple prior surgeries/radiation treatments. He also has comorbidities of atrial fibr illation, and is currently on Eliquis/aspirin regimen. While he denies any new stroke or TIA-like symptoms, he unfortunately has had a recurrence of floor of mouth cancer. He is currently being worked up at in regards to his treatment options. Carotid duplex on 06/08/2025 demonstrates widely patent right carotid stent construct. He has extensive plaque formation at the left carotid bifurcation, and while this has mildly progressed since 2020, he is without hemodynamically significant (I would estimate at 50% or so) stenosis when reviewing all of his prior duplexes and catheter angiograms.I plan on seeing him back in 12 months time with carotid duplex, to ensure stability and exclude any further progression of disease that might necessitate further treatment/intervention. During the interim, he will contact our office and/or call 911 if he develops any new stroke or TIA-like symptoms. Mr. Muller has the aforementioned extensive carotid occlusive disease, as well as prior radiation/surgical treatment for his malignancy, and his catheter angiogram in 2020 demonstrated occlusion ofhis bilateral external carotid arteries. 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 Additionally, Mr. Muller has suffered a recent ankle fracture which required surgery, and he did tolerate pausing his Eliquis for this procedure, albeit he remained on aspirin throughout. Similarly, if he were to need to stop Eliquis for any sort of treatment of his recurrent malignancy, this could be done with a reasonably low risk from a cerebrovascular standpoint, but again he should remain on aspirin indefinitely and resume Eliquis (history of atrial fibrillation) when feasible. Copied text and portions of the note have been reviewed and are accurate as of 06/08/2025. documented in this encounter Plan of Treatment Upcoming Encounters Date Type Department Care Team (Late st Contact Info) Description 08/12/2025 2:30 PM EDT Office Visit [facility] [address] [facility] [address] [place] [phone] Francy Mclean PA-C [address] [facility] [address] [place] [address] 06/02/2026 11:00 AM EDT Appointment [facility] OUTPAT[facility] [address] [facility] [address] [place] [phone] 06/02/2026 1:00 PM EDT Office Visit [facility] [address] [facility] [address] [place] [phone] Salvador Snow MD [address] [facility] [address] [place] [address] 07/13/2026 1:15 PM EDT Office Visit [facility] CARDIOLOGY [address] [facility] [address] [place] [phone] Fortunato Watters MD [address] [facility] [address] [place] [address] Scheduled Orders Name Type Priority Associated Diagnoses Order Schedule Duplex Carotid Ultrasound CAR Vascular Ultrasound Routine Carotid stenosis, asymptomatic, bilateral Expected: 06/08/2026 documented as of this encounter Visit Diagnoses Diagnosis Carotid stenosis, asymptomatic, bilateral- Primary documented in this encounter Care Teams Chemical Processing Laborer Relationship Specialty Start Date End Date Tapan Hill MD [address] [place] [address] PCP - General Family Medicine 04/29/21 06/08/25 documented as of this encounter
--- OUTSIDE RECORDS SUMMARY | 2025-06-15 10:20 | XMS_ITS | Encounter Summary ---
Author Organization [facility] Address [address] 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 Name Role Phone Tapan Hill MD Primary Care Provid er Inna Chowdary MD [facility] [phone] Reason for Visit * Reason Comments Follow-up * Consultation (Routine) - Closed Specialty Diagnoses / Procedures Referred By Jw de la cruz Referred To Contact Medical Oncology / Hematology and Oncology Diagnoses Cancer of oral cavity Yves Cantor MD [address] [facility] [address] [place] [address] Phone: tel: fax: [facility] [address] [facility] [address]nd [place] [address] Phone: tel: fax: Referral ID Status Reason Start Date Expiration Date V isits Requested Visits Authorized [id number] Closed Specialty Services Required 06/03/2025 12/03/2026 1 1 Encounter Details Date Type Department Care Team (Late st Contact Info) Description 06/15/2025 10:20 AM EDT Office Visit [facility] [address] [facility] [address]nd [place] [address] Crystal Viera MD [address] [facility] [address] [place] [address] 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); Hypertension, unspecified type; Neoplasm related pain; CINV (chemotherapy-induce d nausea and vomiting); Moderate protein-calorie malnutrition (CMS/HCC); Oropharyngeal dysphagia Social History Tobacco Use Types Packs/Day Years Used Date Smoking Tobacco: Former Cigarettes 0.5 15 0 10/29/1957 - 1972 Passive Smoke Exposure: Past Smokeless Tobacco: Never Tobacco Cessation:Counseling Given: Not Answered Alcohol Use Standard Drinks/Week Comments Not Currently 0 (1 standard drink = 0.6 oz [...] Sign Reading Time Taken Comments Blood Pressure 122/71 06/15/2025 10:22 AM EDT Pulse 63 06/15/2025 10:22 AM EDT Temperature 36.3 C (97.4 F) 06/15/2025 10:22 AM EDT Respiratory Rate 18 06/15/2025 10:2 2 AM EDT Oxygen Saturation 94% 06/15/2025 10: 22 AM EDT Inhaled Oxygen Concentration - - Weight 78.9 kg (174 lb) 06/15/2025 10:2 2 AM EDT pt reported; unable to stand for weight Height - - Body Mass Index 24.97 06/03/2025 9:07 AM EDT documented in this encounter Functional Status * [...] Assessment Author No 04/15/2021 1:20 PM EDT Randell, E mma K * Because of a physical, mental, or emotional condition, do you have serious difficulty doing errandsalone such as visiting the doctor? Answer Date of Assessment Author No 04/15/2021 1:20 PM EDT Adonay Mejias * Calculated C-SSRS Risk Score (Lifetime/Recent) Answer Date of Assessment Author No Risk Indicated 06/15/2025 10:26 AM EDT Jerrell de luna [place] R * Question Answer Date of Assessment Author 1. Wish to be (Past 1 Month) No 025 10:26 AM EDT Margaret [place] R 2. Non-Specific Active Suici aneta Thoughts (Past 1 Month) No 06/15/2025 10:26 AM EDT Krish Robles [place] R 6. Suicidal Behavior (Lifetime) No 10:26 AM EDT Km Roblesenix R documented as of this encounter Mental Status * Because of a physical, mental, or emotional condition, do you have serious difficulty concentrating, remembering, or making decisions? (5 years old or older) Answer Entry Date Author No 04/15/2021 1:20 PM EDT Adonay Mejias documented in this encounter Miscellaneous Notes * Progress Notes - Rabia Alexis MD - 06/15/2025 10:20 AM EDT Patient Information Patient Name: Loi Lux Date of : 1940 REFERRING PHYSICIAN: Yves Cantor MD [address] [address] Encounter Date: 06/15/2025 Treatment Diagnosis: Cancer Staging No matching staging information was found for the patient. Loi Lux is a 85 y.o. 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 History of Present Illness: Patient presents for evaluation after discovery of a Cancer Staging No matching staging information was found for the patient. he presents for initial medical oncology evaluation and consultation on possible therapies for thismalignancy. Patient is currently PEG tube-dependent and has limited speech and is unable to swallow. At baseline he walks with a cane and is fairly functional, however, he is currently WC bound givenhis recent ankle fracture, which is healing and is supposed to start weightbearing soon. His main complaint is mouth painful ulceration at the site of his current tumor with occasional bleeding. Denies headaches, recent weight loss, night sweates, fever, otalgia. Oncology History Overview Note His oncologic history is as follows: 1983 - right glossectomy, right neck dissection followed by radiation therapy for oral SCCA with Dr. Singh in [place], [place]. The patient had postoperative radiation therapy performed by Dr. Pradip Miller at [facility]. 1990 - reconstruction with rectus flap, right iliac crest bone graft in [place] 07/08/2020 - seen by Vascular Surgery at (Dr. Bingham) for carotid occlusion (right side 100%, leftside 50%). 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 Patient was seen by an ENT in [place] and a biopsy of the lesion on 05/13/25 was positive for squamous cell carcinoma. CT of neck and chest from 06/03/25 showed: Recurrent floor of mouth mass which extends into the adjacent mandible, likely invades the residual tongue, and extends posteriorly to the level of the right carotid. Adjacent left level one lymphadenopathy. Acute nondisplaced T12 superior endplate fracture with no significant loss of vertebral body height. Mild interstitial lung disease. Cancer of oral cavity (CMS/HCC) 02/07/2022 Initial Diagnosis Cancer of oral cavity (CMS/HCC) ROS: A 14 point review of systems was performed and is negative except as recorded on the patient intake form or reported in the history of present illness. Past Medical, Surgical, Family and Social History Past Medical History[1] Surgical History[2] his family history includes Cancer in his brother and sister; Cardiac disorder in an other family member; Cataracts in his brother and sister; Heart disease in his brother, father, mother, and sister; Hypertension in an other family member; Macular degeneration in his sister. he reports that he quit smoking about 52 years ago. His smoking use included cigarettes. He startedsmoking about 67 years ago. He has a 7.5 pack-year smoking history. He has been exposed to tobacco smoke. He has never used smokeless tobacco. He reports that he does not currently use alcohol. He reports that he does not use drugs. 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) Received from [facility] Patient History Alcohol Use Status: Yes Oz/Week (Alcohol Misuse Male >= 9 OR Female >= 4.8): 12 Tobacco Use: Medium Risk (06/15/2025) Patient History Smoking Tobacco Use: Former Smokeless Tobacco Use: Never Passive Exposure: Past Stress: Not on file Physical Activity: Inactive (01/09/2025) Received from [facility] Exercise Vital Sign On average, how many days per week do you engage in moderate to strenuous exercise (like a brisk walk)?: 0 days On average, how many minutes do you engage in exercise at this level?: 0 min Social Connections: Moderately Isolated (03/29/2025) Received from [facility] Social Connection and Isolation Panel In a typical week, how many times do you talk on the phone with family, friends, or neighbors?: More than three times a week How often do you get together with friends or relatives?: More than three times a week How often do you attend faith or confucianist services?: Never Do you belong to any clubs or organizations such as faith groups, unions, fraternal or athletic groups, or school groups?: No How often do you attend meetings of the clubs or organizations you belong to?: Never Are you , , , , never , or living with a partner?: Allergies and Adverse Drug Reactions Patient has no known allergies. Medications Current Medications[3] Objective Performance Status 0: Fully active, able to carry on all pre-disease performance without restriction and 2: Ambulatoryand capable of all self-care but unable to work. Up & about >50% waking hours Blood pressure 122/71, pulse 63, temperature 36.3 ??C (97.4 ??F), temperature source Axillary, resp. rate 18, weight 78.9 kg (174 lb), SpO2 94%. EXAM Physical Exam Constitutional: General: He is not in acute distress. Appearance: He is not ill-appearing. HENT: Head: Normocephalic and atraumatic. Right Ear: External ear normal. Left Ear: External ear normal. Nose: Nose normal. Mouth/Throat: Mouth: Mucous membranes are dry. Pharynx: No oropharyngeal exudate. Comments: Recurrent FOM tumor, trismus Eyes: Extraocular Movements: Extraocular movements intact. Pupils: Pupils are equal, round, and reactive to light. Neck: Comments: Bilateral neck dissections and radiation therapy changes. Cardiovascular: Rate and Rhythm: Normal rate and regular rhythm. Heart sounds: No murmur heard. No friction rub. No gallop. Pulmonary: Effort: Pulmonary effort is normal. No respiratory distress. Breath sounds: Normal breath sounds. No stridor. No wheezing, rhonchi or rales. Abdominal: General: Bowel sounds are normal. There is no distension. Palpations: There is no mass. Tenderness: There is no abdominal tenderness. Comments: PEG tube in place Musculoskeletal: General: No swelling. Cervical back: Tenderness present. Right lower leg: No edema. Left lower leg: No edema. Lymphadenopathy: Cervical: Cervical adenopathy present. Skin: General: Skin is warm and dry. Findings: No erythema or rash. Neurological: Mental Status: He is alert. Cranial Nerves: No cranial nerve deficit or dysarthria. Sensory: No sensory deficit. Psychiatric: Mood and Affect: Mood normal. Behavior: Behavior normal. LABORATORIES AND STUDIES: reviewed by me personally today to monitor for cancer related drug toxicity and treatment related intermediate teacher toxicity CBC WBC No results found for requested labs within last 365 days. Hgb No results found for requested labs within last 365 days. PLT No results found for requested labs within last 365 days. HCT No results found for requested labs within last 365 days. Lab Results Component Value Date NEUTROABS 2.79 04/02/2024 BASIC METABOLIC PANEL Na No results found for requested labs within last 365 days. Cl No results found for requested labswithin last 365 days. BUN No results found for requested labs within last 365 days. Gluc No resultsfound for requested labs within last 365 days. K No results found for requested labs within last 365 days. Co2 No results found for requested labswithin last 365 days. Creat No results found for requested labs within last 365 days. LIVER FUNCTION TESTING Tot Prot No results found for requested labs within last 365 days. AST No results found for requested labs within last 365 days. Tot bili No results found for requested labs within last 365 days. ALT No results found for requested labs within last 365 days. Alkphos No results found for requested labs within last 365 days. Ca No results found for requested labs within last 365 days. Mg No results found for requested labs within last 365 days. Phos No results found for requested labs within last 365 days. Lab Results Component Value Date TSH 0.68 04/10/2021 Radiology: I independently visualized the recent imaging given the patient's symptoms and oncologic history === 06/03/25 === CT SOFT TISSUE NECK W IV CONTRAST Recurrent floor of mouth mass which extends into the adjacent mandible, likely invades the residualtongue, and extends posteriorly to the level of the right carotid. Adjacent left level one lymphadenopathy. Kumar Hernandez M.D. CT Chest Acute nondisplaced T12 superior endplate fracture with no significant loss of vertebral body height. No change in the mld to moderate interstitial lung disease. Final report signed by Jona Webster MD on 06/03/2025 8:29 AM Pathology: Tissue Exam Specimen: Tissue - Specimen from tongue (specimen) Component 1 mo ago Case Report Surgical Pathology Case: [id number] Authorizing Provider: Cooper Crawford MD Collected: 05/13/2025 1048 Ordering Location: [facility] Ear, Nose Received: 05/13/2025 1630 and Throat Pathologist: Vandana Peres MD Specimen: Tongue, Left Tongue border Final Diagnosis A. 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 Invasive cancer appears to extend to all the edges of the submitted biopsy. Seen in consultation with Dr. Taco Redman. at [address] [facility] Clinical Information Left Tongue border Gross Description A. The specimen is received in formalin and labeled left tongue border . The specimen consists of 2 blake-white tissue fragments measuring 0.4 x 0.3 x 0.3 cm and 0.7 x 0.3 x 0.2 cm. The specimen is submitted entirely in cassette A1. Microscopic Description Performed. Resulting Agency [facility] Assessment/Plan 1. 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 - This represents a life threatening illness for which urgent cancer treatment is indicated. - I obtained information from patient and his . Pertinent history is reviewed with family member due to the patient's condition. - I independently visualized and reviewed the current radiology and pathology findings with the patient in detail and answered all questions. I agree that this shows locally advanced oral cavity cancer, and node, but no evidence of distant disease. - I extensively reviewed the staging and prognosis of this cancer and the risk and benefits of starting Immunotherapy including benefits of pain control and disease control but not cure, and the riskof worsening pulmonary fibrosis, and other side effects and provided information sheets. - This treatment will require ongoing monitoring of toxicity by me, due to the risks of severe sideeffects from this treatment. The selection, dosing and administration of anti-cancer agents and themanagement of associated toxicities requires complex medical decision making. Modifications of drugdose and schedule as well as the initiation of supportive care interventions are often necessary because of expected toxicities. This varies individually based on patient tolerability, prior treatments and comorbidities. The optimal delivery of anticancer agents requires a healthcare delivery team experienced in the use of anticancer agents and the management of associated toxicities in patients with cancer. - I reviewed the outside records from [place] and Dr. Cantor and interpreted these records in light ofthe current diagnosis and plan. I have reviewed and updated the problem list and medical history. Idiscussed this case with Dr. Cantor in detail and coordinated the care of the patient. - I reviewed liver and renal function as well as bone marrow function in relationship to this patient's ability to tolerate systemic cancer treatment - He has a CPS of 90 based on his phagology from 2019. Plan: - Will get a PET scan, this is currently scheduled on 06/26 - I have ordered next generation sequencing for this patient due to the possible targeted therapiesindicated for this stage of recurrent/refractory cancer - He is planned to see rad onc today, will most likely receive palliative XRT to his oral cavity. - Will plan to start on Pembro and repeat scans in 2-3 months once we get his PET scans and finalize XRT plans. - RTC 2 weeks after PET scan 2. Pain related to neoplasm: - He is not requiring any narcotics at this time, will prescribe as needed. 3. Protein-calorie malnutrition secondary to cancer: mild - with loss of muscle mass, - continue tube feedings as sole form of nutrition 4. Anticipated mucositis and xerostomia due to radiation therapy and chemotherapy - will use salt and soda topical mouthwash for symptoms of mucositis, to be mixed at home by the patient 5. Monitoring for the emergence of hypothyroidism due to radiation - This will be periodically monitored as we continue therapy, due to the potential for worsening ofthyroid function from radiation and systemic cancer therapy. 6. Anticipated Chemotherapy Induced Nausea: - I prescribed ondansetron, compazine and will monitor for nausea and vomiting. I managed multiple prescription drugs in the context of these new medications. 7. T12 fracture Will check his PET scan to ensure no spinal mets. Yves Cantor MD [address] [place] [address] Tapan Hill MD (Inactive) Orders Placed This Encounter Procedures CBC and Differential Comprehensive Metabolic Panel, Plasma Thyroid Stimulating Hormone, Plasma Case seen and discussed with Dr Maximiliano LAMAR, who assisted with formulation of management plan. Rabia Alexis MD PGY4 hematology/oncology fellow [facility] [1] Past Medical History: Diagnosis Date Anemia 2020 Cancer (CMS/HCC) 1983 Cancer of oral cavity (CMS/HCC) 02/07/2022 Coronary artery disease 2020 COVID-19 09/2023 Dysplastic colon polyp 03/19/2016 Description: sigmoid, pedunculated, removed completely in [place] 01/2016 Description: sigmoid, pedunculated, removed completely in [place] 01/2016 Essential (primary) hypertension Hypertension GERD (gastroesophageal reflux disease) 2023 Heart failure Inflammatory liver disease, unspecified Hepatitis Lower back pain Personal history of irradiation 1983 Personal history of other diseases of the circulatory system History of coronary artery disease Personal history of other diseases of the musculoskeletal system and connective tissue History of spinal stenosis Pure hypercholesterolemia, unspecified High cholesterol Skin cancer 1980 Stroke (CMS/HCC) Stroke (CMS/HCC) [2] Past Surgical History: Procedure Laterality Date CARDIAC STENT CATARACT EXTRACTION W/ INTRAOCULAR LENS IMPLANT Right 09/21/2020 [id number]0 D S/N [id number] COLONOSCOPY 1999 CORONARY ARTERY BYPASS GRAFT 2020 CORONARY STENT PLACEMENT 2020 FEEDING TUBE PLACEMENT INSERT / REPLACE / REMOVE PACEMAKER 2020 LEG SURGERY MANDIBLE SURGERY N/A Mandible surgery from [facility] MOUTH BIOPSY OTHER SURGICAL HISTORY N/A Defibrillator 2020 Dissection of neck from [facility] PROSTHODONTIC PROCEDURE ROTATOR CUFF REPAIR N/A Repair of rotator cuff from [facility] SKIN CANCER EXCISION N/A Skin cancer excision from [facility] TONGUE SURGERY N/A tongue surgery from [facility] [3] Current Outpatient Medications: acetaminophen (Tylenol) 325 MG tablet, Take 2 tablets by mouth every 6 hours as needed., Disp: , Rfl: aluminum & magnesium hydroxide-simethicone (Mylanta) 200-200-20 MG/5ML oral suspension, Take 30mL by mouth every 6 (six) hours if needed for indigestion or heartburn., Disp: , Rfl: apixaban (Eliquis) 5 MG tablet, Take 1 tablet by mouth 2 times a day., Disp: 180 tablet, Rfl: 3 ASPIRIN 81 PO, Take 1 tablet by mouth 1 (one) time each day., Disp: , Rfl: atorvastatin (Lipitor) 80 MG tablet, , Disp: , Rfl: bisoprolol (Zebeta) 5 MG tablet, Take 0.5 tablets (2.5 mg) by mouth 1 (one) time each day., Disp: ,Rfl: carboxymethylcellulose sod PF (Refresh Celluvisc) 1 % ophthalmic solution dropperette, Inject 1 drop into the eye 3 times a day as needed., Disp: , Rfl: Cetirizine HCl Childrens Alrgy 1 MG/ML syrup, 10 mL by Enteral route., Disp: , Rfl: chlorhexidine (Peridex) 0.12 % solution, SWISH AND SPIT 15 ML BY MOUTH OR THROAT TWICE DAILY DIRECTED, Disp: , Rfl: doxazosin (Cardura) 1 MG tablet, 1 tablet by Enteral route., Disp: , Rfl: Doxylamine Succinate, Sleep, (UNISOM PO), Take 23 mg by mouth 1 (one) time each day., Disp: , Rfl: famotidine (Pepcid) 20 MG tablet, Take 1 tablet by mouth 2 times a day., Disp: , Rfl: FIBER PO, 480 mL by Enteral route., Disp: , Rfl: FIBER PO, 240 mL by Enteral route., Disp: , Rfl: finasteride (Proscar) 5 MG tablet, 1 tablet by Enteral route., Disp: , Rfl: HYDROcodone-acetaminophen (Grulla) 7.5-325 MG tablet, , Disp: , Rfl: hydrOXYzine HCl (Atarax) 25 MG tablet, Take 2 tablets (50 mg) by mouth. Takes 2 at bedtime, Disp: ,Rfl: linaCLOtide (Linzess) 290 MCG capsule, Take by mouth., Disp: , Rfl: loratadine (Claritin) 10 MG tablet, Take 1 tablet by mouth., Disp: , Rfl: methocarbamol (Robaxin) 500 MG tablet, 1 tablet (500 mg)., Disp: , Rfl: mlyrqvqnmpuq-eicy-ldefngpy-folic acid (Centrum Silver, geriatric,) tablet, Take 1 tablet by mouth 1(one) time each day., Disp: , Rfl: naloxone (Narcan) 4 mg/0.1 mL nasal spray, 1. Give 1 spray in nostril for no/slow breathing or cannot wake after opioid use 2. Call 911 3. Repeat in other nostril if symptoms continue, Disp: 1 each, Rfl: 0 ondansetron (Zofran) 4 MG tablet, Take 1 tablet (4 mg) by mouth twice a day., Disp: , Rfl: ondansetron ODT (Zofran-ODT) 4 MG disintegrating tablet, , Disp: , Rfl: oxyCODONE (Roxicodone) 5 MG immediate release tablet, 2 tablets by Per G Tube route every 4 hours as needed for moderate pain for up to 120 doses., Disp: 120 tablet, Rfl: 0 polyethylene glycol (Miralax) 17 GM/SCOOP powder, Take 17 g by mouth., Disp: , Rfl: rosuvastatin (Crestor) 10 MG tablet, Take 1 tablet (10 mg) by mouth 1 (one) time each day., Disp: ,Rfl: Sennosides 8.6 MG capsule, Take by mouth., Disp: , Rfl: simethicone (Mylicon) 80 MG chewable tablet, Chew 1 tablet every 6 hours as needed., Disp: , Rfl: carvedilol (Coreg) 3.125 MG tablet, Take 1 tablet (3.125 mg total) by mouth 2 (two) times a day with meals. (Patient not taking: No sig reported), Disp: 60 tablet, Rfl: 11 erythromycin (Romycin) 5 MG/GM ophthalmic ointment, Apply 1 Application to both eyes every night., Disp: 3.5 g, Rfl: 3 Cosigned by Crystal Viera MD at 06/15/2025 6:51 PM EDT Associated attestation - Crystal Viera MD - 06/15/2025 6:51 PM EDT Attending Attestation Statement: Today, I saw and evaluated the patient with the resident/fellow. Idiscussed the case with the resident/fellow and agree with the findings and plan as documented. I have reviewed the above notes and edited where appropriate reflecting my evaluation and assessment ofthe patient; I concur with the physical exam above, I edited the exam and medical history and I repeated relevant portions of the exam and the plans have been generated by me and under my supervision. Exam shows bilateral neck dissections, well healed, FOM mass, with significant trismus, and PEG tube in place. I personally visualized the radiology scans above and personally discussed the plans outlined above at length with the patient. - I counseled the patient regarding risk and benefits of immunotherapy including infection, injury to organs (kidneys, liver, nerves), immunologic disorders including hypothyroidism, colitis, pneumonitis, skin rash, and more rare forms of immune side effects, in addition to nausea, vomiting and fatigue and obtained informed consent today. I have written and calculated this immunotherapy. I also provided teaching sheets and education materials to the patient and answered all questions. I gave new scripts for Zofran 8 mg q8 hrs x 3 days after chemo and Compazine 10 mg q6hr prn nausea. RTC 06/25/25 and 6W later for cycle 2. Plan reimaging after 12 W. Crystal Viera MD * Progress Notes - Kylah Danielle, PharmD - 06/15/2025 10:20 AM EDT Pharmacy Hematology/Oncology Patient Education Note I counseled the patient on their cancer treatment regimen, which was scheduled to start pending infusion schedule. The cancer therapy that this patient is scheduled to receive includes: pembrolizumab. I provided the patient with a written explanation of the drug(s) contained in the regimen and theirexpected or possible side effects, toxicities, and adverse reactions, including but not limited to: Fatigue Cough/SOA/Chest pain Joint pain Rash/skin changes Bowel changes Inflammatory changes in other organ function, including but not limited to liver, kidneys, thyroid,pancreas, heart, lungs I provided verbal explanation of the same material and provided methods for self-monitoring. Patient was instructed regarding when to contact clinic for adverse effects. [X] Consent was signed 06/15/25 I answered all questions that the patient and family members had. The patient demonstrated understanding of the material, and wished to proceed with the treatment. Kylah Danielle, HeriD Clinical Oncology Pharmacist documented in this encounter Plan of Treatment Upcoming Encounters Date Type Department Care Team (Late st Contact Info) Description 08/06/2025 9:30 AM EDT Clinical Support [facility] [address] [facility], [address] [place] [address] 08/06/2025 9:50 AM EDT Office Visit [facility] [address] [facility], [address] [place] [phone] Crystal Viera MD [address] [facility] [address] [phone] 08/06/2025 11:30 AM EDT Appointment [facility] Infusion [address] [place] [address] 09/14/2025 9:00 AM EST Appointment [facility] Radiology [address] [place] [address] 09/14/2025 10:00 AM EST Office Visit [facility] [address] [facility], [address] [place] [address] Yves Cantor MD [address] [facility] [address] [place] [phone] 09/14/2025 11:00 AM EST Appointment [facility] Radiation [address] [facility]. [id number] [place] [phone] Inna Chowdary MD [address] [facility] [address] [place] [phone] 09/17/2025 10:30 AM EST Office Visit [facility] [address] [facility], [address] [place] [phone] Crystal Viera MD [address] [facility] [address] [place] [phone] 09/29/2025 2:20 PM EST Office Visit [facility] [address] [place] [phone] Dio Burger MD [address] [place], [place] [id number] Scheduled Orders Name Type Priority Associated Diagnoses Orde r Schedule CBC and Differential Lab Routine SCCA (squamous cell carcinoma) of skin Hypertension, unspecified type Expected: 06/15/2025, Expires: 12/14/2026 Comprehensive Metabolic Panel, Plasma Lab Routine SCCA (squamous cell carcinoma) of skin Hypertension, unspecified type Expected: 06/15/2025, Expires: 12/14/2026 Thyroid Stimulating Hormone, Plasma Lab Routine SCCA (squamous cell carcinoma) of skin Hypertension, unspecified type Expected: 06/15/2025, Expires: 12/14/2026 documented as of this encounter Visit Diagnoses Diagnosis SCCA (squamous cell carcinoma) of skin- Primary Hypertension, unspecified type Neoplasm related pain Neoplasm related pain (acute) (chronic) CINV (chemotherapy-induced nausea and vomiting) Moderate protein-calorie malnutrition (CMS/HCC) Oropharyngeal dysphagia Dysphagia, oropharyngeal phase documented in this encounter Additional Health Concerns Assessment Noted Time PHQ-9 Depression Total Score: 2 06/03/20 9:09 AM EDT A fall risk assessment has been complete d for the patient 06/15/2025 1:15 PM EDT A Body Mass Index follow-up plan has been documented for the patient 07/21/2024 10:08 AM EDT documented as of this encounter Care Teams Grinding Machine Tender Relationship Specialty Start Date End Date Tapan Hill MD [address] [place] [address] PCP - General 03/11/21 Inna Chowdary MD [address] [place] [phone] Consulting Physician Radiation Therapy 06/15/25 documented as of this encounter
--- OUTSIDE RECORDS SUMMARY | 2025-06-15 12:45 | XMS_ITS | Encounter Summary ---
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 Name Role Phone Tapan Hill MD Primary Care Provid er Inna Chowdary MD [facility] [phone] Reason for Referral * Consultation (Routine) - Closed Specialty Diagnoses / Procedures Referred By Jw t Referred To Contact Palliative Medicine / Blood and Marrow Transplant Diagnoses Cancer of oral cavity Inna Chowdary MD [address] [place] [address] Phone: tel: fax: [facility] Hematology/BMT and Cellular Therapy [facility] [address] [place] [address] Phone: tel: fax: Referral ID Status Reason Start Date Expiration Date V isits Requested Visits Authorized [id number] Closed Consult and Treat 06/17/2025 12/17/2026 1 1 * Consultation (Routine) - Closed Specialty Diagnoses / Procedures Referred By Contmariana t Referred To Contact Radiation Oncology Diagnoses Cancer of oral cavity Yves Cantor MD [address] [facility] [address] [place] [address] Phone: tel: fax: [facility] [address] [place] [address] Phone: tel: fax: Referral ID Status Reason Start Date Expiration Date V isits Requested Visits Authorized [id number] Closed Specialty Services Required 06/03/2025 12/03/2026 1 1 Reason for Visit * Reason Comments Consult * Consultation (Routine) - Closed Specialty Diagnoses / Procedures Referred By Contac t Referred To Contact Radiation Oncology Diagnoses Cancer of oral cavity Yves Cantor MD [address] [facility] [address] [place] [address] Phone: tel: fax: [facility] [address] [place] [address] Phone: tel: fax: Referral ID Status Reason Start Date Expiration Date V isits Requested Visits Authorized [id number] Closed Specialty Services Required 06/03/2025 12/03/2026 1 1 Encounter Details Date Type Department Care Team (Latest Contact Info) Description 06/15/2025 12:45 PM EDT - 06/15/2025 11:59 PM EDT Hospital Encounter [facility] [address] [facility] [place] [address] Inna Chowdary MD [address] [place] [address] Cancer of oral cavity (CMS/HCC) (Primary Dx) Discharge Disposition: Still a Patient Social History Tobacco Use Types Packs/Day Years [...] Sign Reading Time Taken Comments Blood Pressure 127/76 06/15/2025 1:10 PM EDT Pulse 69 06/15/2025 1:10 PM EDT Temperature 36.5 C (97.7 F) 06/15/2025 1:10 PM EDT Respiratory Rate 16 06/15/2025 1:10 PM EDT Oxygen Saturation 98% 06/15/2025 1:10 PM EDT Inhaled Oxygen Concentration - - Weight - - Height 177.8 cm (5' 10 ) 06/15/2025 1:10 PM EDT Body Mass Index - - documented [...] PM EDT Adonay Mejias mma K * Calculated C-SSRS Risk Score (Lifetime/Recent) Answer Date of Assessment Author No Risk Indicated 06/15/2025 10:26 AM EDT Yung Escobar R * Question Answer Date of Assessment Author 1. Wish to be (Past 1 Month) No 025 10:26 AM EDT Yung Robles R 2. Non-Specific Active Suici aneta Thoughts (Past 1 Month) No 06/15/2025 10:26 AM EDT Krish Robles R 6. Suicidal Behavior (Lifetime) No 5 10:26 AM EDT Yung Robles documented as of this encounter Mental Status * Because of a physical, mental, or emotional condition, do you have serious difficulty concentrating, remembering, or making decisions? (5 years old or older) Answer Entry Date Author No 04/15/2021 1:20 PM EDT Adonay Mejias documented in this encounter Medications at Time of Discharge acetaminophen (Tylenol) 325 MG tablet Take 2 tablets by mouth every 6 hours as needed. aluminum & magnesium hydroxide-simethico ne (Mylanta) 200-200-20 MG/5ML oral suspension Take 30 mL by mouth every 6 (six) hours if needed for indigestion or heartburn. apixaban (Eliquis) 5 MG tablet Take 1 tablet by mouth 2 times a day. 180 tablet 3 06/10/2025 ASPIRIN 81 PO Take 1 tablet by [...] syrup 10 mL by Enteral route. 03/29/2025 diphenhydrAMINE (Benadryl) 12.5 MG/5ML liquid Mix 30 mL with water and lidocaine as directed 473 mL 3 06/15/2025 doxazosin (Cardura) 1 MG tablet 1 tablet by Enteral route. 01/17/2025 famotidine (Pepcid) 20 MG tablet Take 1 tablet by mouth 2 times a day. Feeding Supplies [facility] Please send pole for gravity feeds, along with months supply of gravity bags and 5 rolls of blue tape 1 each 5 06/15/2025 FIBER PO 480 mL by Enteral route. 03/30/2025 FIBER PO 240 mL by Enteral route. 03/30/2025 finasteride (Proscar) 5 MG tablet 1 tablet by Enteral route. 01/16/2025 hydrOXYzine HCl (Atarax) 25 MG tablet Take 2 tablets (50 mg) by mouth. Takes 2 at bedtime lidocaine (Xylocaine) 2 % solution Take 45 mL by mouth 4 times a day as needed for mild pain. Mix 45 mL with water and benedryl as directed 200 mL 3 06/15/2025 mkonwmldbkiz-wukb-f inerals-folic acid (Centrum Silver, geriatric,) tablet Take 1 tablet by mouth 1 (one) time each day. naloxone (Narcan) 4 mg/0.1 mL nasal spray 1. Give 1 spray in nostril for no/slow breathing or cannot wake after opioid use 2. Call 911 3. Repeat in other nostril if symptoms continue 1 each 06/08/2025 ondansetron (Zofran) 4 MG tablet Take 1 tablet (4 mg) by mouth twice a day. oxyCODONE (Roxicodone) 5 MG immediate release tablet 2 tablets by Per G Tube route every 4 hours as needed for moderate pain for up to 120 doses. 120 tablet 06/08/2025 polyethylene glycol (Miralax) 17 GM/SCOOP powder Take 17 g by mouth. Sennosides 8.6 MG capsule Take by mouth. simethicone (Mylicon) 80 MG chewable tablet Chew 1 tablet every 6 hours as needed. magic mouthwash (lidocaine, diphenhydramine, Maalox 1:1:1) Swish and spit 10 mL every 4 hours as needed for mucositis or stomatitis. 1200 mL 3 06/15/2025 07/15/20 25 oxyCODONE (Roxicodone) 10 MG immediate release tablet Take 1 tablet by mouth every 4 hours as needed for severe pain (g89.3). 100 tablet 06/15/2025 07/15/20 25 chlorhexidine (Peridex) 0.12 % solution SWISH AND SPIT 15 ML BY MOUTH OR THROAT TWICE DAILY DIRECTED 03/30/2025 06/19/20 25 Doxylamine Succinate, Sleep, (UNISOM PO) Take 23 mg by mouth 1 (one) time each day. 06/17/20 25 HYDROcodone-acetami nophen (Kimberly) 7.5-325 MG tablet 10/24/2022 09/08/2 0 25 linaCLOtide (Linzess) 290 MCG capsule Take by mouth. 06/19/20 25 loratadine (Claritin) 10 MG tablet Take 1 tablet by mouth. 06/19/20 25 methocarbamol (Robaxin) 500 MG tablet 1 tablet (500 mg). 04/20/2022 06/17/20 25 ondansetron ODT (Zofran-ODT) 4 MG disintegrating tablet Dissolve 1 tablet on the tongue every 8 hours as needed for nausea or vomiting. 30 tablet 3 06/15/2025 07/03/20 25 rosuvastatin (Crestor) 10 MG tablet Take 1 tablet (10 mg) by mouth 1 (one) time each day. 06/17/20 25 documented as of this encounter Miscellaneous Notes * Progress Notes - Inna Chowdary MD - 06/15/2025 2:00 PM EDT [facility] RADIATION ONCOLOGY CONSULTATION NOTE PATIENT NAME: Loi Lux : 1940 DATE OF SERVICE: 06/15/2025 REFERRING PROVIDER: Yves Cantor MD DIAGNOSIS: 85 y.o. 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 Reconstruction w/ rectus flap and Rt iliac crest bone graft in 1990. Recurrence in the Lt neck, Bx proven SCC 07/23/2020 DL + Lt ND level II-V confirming PD p16- SCC in LN Adjuvant EBRT 60 Gy/44 Fx to Lt neck (completed 10/05/2020-11/18/2020) Now presenting with Bx proven recurrent FOM invasive to MD SCC, keratinizing time, with extension into mandible/residual tongue with adjacent Lt level I LN Diagnosis Plan 1. Cancer of oral cavity (CMS/[facility]) Ambulatory referral to Palliative Care STAGE: Cancer Staging Cancer of oral cavity (CMS/HCC) Staging form: Oral Cavity, AJCC 8th Edition - Clinical stage from 05/13/2025: No stage assigned - Signed by Inna Chowdary MD on 06/17/2025 Histopathologic type: Squamous cell carcinoma, keratinizing, NOS Stage prefix: Recurrence HISTORY OF PRESENT ILLNESS: Loi Gale Jose J is a 85 y.o. male who presents with above diagnosis, for an opinion regarding the role of radiation therapy in the management of the patient's disease. Final recommendations willbe communicated back to the requesting physician by way of the shared medical record, or letter to r equesting physician via US mail. Mr. Loi Lux is a pleasant 85 y.o. 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 - Reconstruction w/ rectus flap and Rt iliac crest bone graft in 1990. - Recurrence in the Lt neck, Bx proven SCC 07/23/2020 - DL + Lt ND level II-V confirming PD p16- SCC in LN+ with CPS of 90% on 08/25/2020 - Adjuvant EBRT 60 Gy/44 Fx to Lt neck (completed - Now presenting with Bx proven (05/13/2025 with local ENT in [place]) recurrent FOM invasive to MD SCC, keratinizing time, with extension into mandible/residual tongue with adjacent Lt level I LN - CT chest on 06/03/25 without neoplastic findings, however notable for acute non- displaced T12 superior endplate Fx. - CT neck on 06/03/25 demonstrating 3.4x 3.4 x 2.4 cm ulcerative soft tissue lesion along Rt floor ofmouth, abutting Rt mandible w/ erosive changes. Mass is inseparable from [place] tongue. Lesion described to extend posteriorly along fat graft to level of the carotid. Lt level I LN suspicious 1 x 0.9 cm in size. Imaging, operative notes, and pathology reviewed in detail. Subjective History: Today, Mr. Lux is joined by his and daughter. They just met with Medical Oncology for consultation. He is wheelchair bound due to recent fall at home, resulting in Lt ankle fracture. Prior to that hewas ambulating with a cane at home completing ADLs. He reports feeling rough. He endorses pain 5/10(per daughter that is high, his normal pain is 1/10) in the oral cavity. Reports oral cavity is notbleeding, previously was bleeding about 1 month ago. Has been admitted several times to the hospital for constipation. He is PEG tube dependent, has a hard time speaking, difficulty swallowing, and has ORN asa result of prior treatments. He does not drive due to poor vision among other co-morbidities present. On a recent hospital admission he had a large mucous plug fall off the roof of his mouth. He was Rx antibiotics and as of 04/2025 the roof of mouth healed. Mr. Lux and his go back and forth between [place] and [place]. They have a home there and are in the process of trying to sell/wrap up affairs there. Mr. Lux has multiple medical conditions, most notably bilateral carotid stents (50% flow in Ltcarotid, 100% flow in Rt carotid). RADIATION HISTORY/RELEVANT PERTINENT FACTORS: History of prior radiation: Yes (see Oncologic Hx) History of auto-immune disease: N/A History of connective tissue disorder: N/A Pacemaker: Yes Able to lay flat: Yes - with knee cushion Transportation available: No, would require lodging for Tx. Is already working with a SW. PAST MEDICAL HISTORY: Past Medical History[1] PAST SURGICAL HISTORY: Surgical History[1] FAMILY HISTORY: Family History[1] SOCIAL HISTORY: Social History[1] ALLERGIES: Allergies[1] CURRENT MEDICATIONS: Current Medications[1] REVIEW OF SYSTEMS: A 14 point ROS was reviewed and was negative except as mentioned above in HPI. STATUS: n/a - Male PHYSICAL EXAMINATION Visit Vitals BP 127/76 (BP Location: Left arm, Patient Position: Sitting, BP Cuff Size: Adult) Pulse 69 Temp 36.5 ??C (97.7 ??F) (Axillary) Resp 16 Ht 1.778 m (5' 10 ) SpO2 98% BMI 24.97 kg/m?? Smoking Status Former BSA 1.97 m?? Wt Readings from Last 3 Encounters: 06/15/25 78.9 kg (174 lb) 03/11/24 76.5 kg (168 lb 10.4 oz) 03/03/24 75.7 kg (166 lb 14.2 oz) Temp Readings from Last 3 Encounters: 06/15/25 36.5 ??C (97.7 ??F) (Axillary) 06/15/25 36.3 ??C (97.4 ??F) (Axillary) 03/03/24 36.3 ??C (97.4 ??F) (Axillary) BP Readings from Last 3 Encounters: 06/15/25 127/76 06/15/25 122/71 06/03/25 117/64 Pulse Readings from Last 3 Encounters: 06/15/25 69 06/15/25 63 06/03/25 61 50 - Requires considerable assistance and frequent medical care. CONSTITUTIONAL: Awake, alert, cooperative, and appears stated age EYES: Extra-ocular muscles intact, sclerae anicteric. ENT: Oral cavity with trismus (~4 cm opening), roof of mouth without scabbing, oral cavity mucous membranes dry, OPX difficult to visualize with limited mouth opening, tongue non-mobile, Rt white uclerative lesion ~ 3 cm in size without bleeding. Edentulous. NECK: No stridor, skin s/p RT changes, woody feeling. No palpable LNs. LUNGS: No increased work of breathing, normal respiratory effort. NEUROLOGIC: Patient is awake, alert and oriented to name, place and time. Cranial nerves II-XII are intact grossly. No focal neurological deficit. Casual gait not assessed due to wheelchair use. RADIOLOGY/LABORATORY/PATHOLOGY DATA: All pertinent lab results, pathology results, and imaging studies were reviewed independently. ASSESSMENT AND PLAN: In summary, this is a 85 y.o. male with a history of SCC of the oral cavity s/p multiple Sgx and 2 courses of EBRT (1st with unknown dose/fractionation/melara in 1980s, 2nd 60 Gy/44 Fx in 2019) , presenting with recurrence in the floor of mouth/Rt tongue invading the mandible. I reviewed with the patient (and family) the diagnosis including pertinent imaging and pathologic results. I explained the locally advanced nature of the cancer recurrence. I explained with two priorcourses of EBRT (one of which I do not have historical records available to view), re-irradiation is a possibility however not without significant risks/side-effects. I explained the short and shelter side effects, and complications with particular emphasis on the risk of carotid blow out (especially given his vascular history), risk of requiring a temporary tracheostomy (unlikely, although possible given his base of tongue/residual tongue could swell given it has seen multiple courses of EBRT). We discussed if EBRT were to be pursued, it would be in the palliative setting with the intent of pain control and symptom control (e.g. if he were bleeding from the ulcerative lesion). At this time he is not bleeding. I explained I could either complete this with a one time approach of 5 Fx versusa regimen known as Quad Shot (14 Gy/4 Fx BID on 2 consecutive days). This regimen could be repeated2-3 times for a total dose of 44 G. With either regimen I would only Tx the oral tongue and involvement of the mandible to a marginal extent, staying away from the neck/carotids. I discussed either of these options could be completed while immunotherapy was ongoing without interference. We also discussed not pursuing radiotherapy, and proceeding with single agent immunotherapy. We discussed taking that approach then following up after a few cycles to assess response, and potentiallyconsidering EBRT at that time. The logistics of radiation therapy were discussed. Regarding the risks of radiation therapy, they had an opportunity ask questions, all of which were answered to their satisfaction. After hearing the above, they did not feel comfortable with proceeding with EBRT at this time. Theywould like to proceed with IO alone, and will follow up with me in about 12 weeks to re-assess response to immunotherapy. Palliative/pain management consultation will be placed for better control of pain. He is obtaining a PET with Medical Oncology to rule out any distant disease (in light of finding on T12 on CT chest). Mr. Lux has been given a printout regarding future appointments and the plan of care. He has our contact information should he have questions or concerns in the interim. Tobacco cessation counseling was provided: n/a Orders Placed This Encounter Procedures Ambulatory referral to Radiation Oncology Ambulatory referral to Palliative Care Future Appointments Date Time Provider Department Center 06/24/2025 3:00 PM [facility] 08/06/2025 9:30 AM [facility] [place] 08/06/2025 9:50 AM Crystal Viera MD [facility] 08/06/2025 11:30 AM [facility] 09/14/2025 10:00 AM Yves Cantor MD [facility] 09/14/2025 11:00 AM Inna Chowdary MD [facility] [place] 09/17/2025 10:30 AM Crystal Viera MD [facility] Thank you for allowing us to take part in the care of Loi Lux. Please do not hesitate to contact our clinic if you have any questions or concerns. A total of 60 minutes were spent preparing, performing an examination, counseling, educating the patient, and care coordination. Inna Chowdary MD, MSc [employer] Radiation Oncology CC the following multidisciplinary cancer team: Dr. Crystal Viera MD (Medical Oncology) Dr. Yves Cantor MD (ENT) [1] Past Medical History: Diagnosis Date Anemia 2020 Cancer (CMS/HCC) 1984 Cancer of oral cavity (CMS/HCC) 02/07/2022 Coronary artery disease 2020 COVID-19 09/2023 Dysplastic colon polyp 03/19/2016 Description: sigmoid, pedunculated, removed completely in [place] 01/2016 Description: sigmoid, pedunculated, removed completely in [place] 01/2016 Essential (primary) hypertension Hypertension GERD (gastroesophageal [...] unspecified High cholesterol Skin cancer 1980 Stroke ([facility]/HCC) Stroke (CMS/HCC) [1] Past Surgical History: Procedure Laterality Date CARDIAC STENT CATARACT EXTRACTION W/ INTRAOCULAR LENS IMPLANT Right [facility]21/[id number] 20.0 D S/N [id number] COLONOSCOPY 1999 CORONARY ARTERY BYPASS GRAFT 2020 CORONARY STENT PLACEMENT 2020 FEEDING TUBE PLACEMENT INSERT / REPLACE / REMOVE PACEMAKER 2020 LEG SURGERY MANDIBLE SURGERY N/A Mandible surgery from [facility] MOUTH BIOPSY OTHER SURGICAL HISTORY N/A Defibrillator 2020 Dissection of neck from [facility] PROSTHODONTIC PROCEDURE ROTATOR CUFF REPAIR N/A Repair of rotator cuff from [facility] SKIN CANCER EXCISION N/A Skin cancer excision from [facility] TONGUE SURGERY N/A tongue surgery from [facility] [1] Family History Problem Relation Name Age of Onset Cardiac disorder Other Hypertension Other Heart disease Mother Heart disease Father Macular degeneration Sister Cancer Sister Cataracts Sister Heart disease Sister Cancer Brother Cataracts Brother Heart disease Brother [1] Social History Tobacco Use Smoking status: Former Current packs/day: 0.00 Average packs/day: 0.5 packs/day for 15.0 years (7.5 ttl pk-yrs) Types: Cigarettes Start date: 10/29/1957 Quit date: 1972 Years since quittin.6 Passive exposure: Past Smokeless tobacco: Never Vaping Use Vaping status: Never Used Substance Use Topics Alcohol use: Not Currently Drug use: Never [1] No Known Allergies [1] Current Outpatient Medications: acetaminophen (Tylenol) 325 MG [...] THROAT TWICE DAILY DIRECTED, Disp: , Rfl: diphenhydrAMINE (Benadryl) 12.5 MG/5ML liquid, Mix 30 mL with water and lidocaine as directed, Disp: 473 mL, Rfl: 3 doxazosin (Cardura) 1 MG tablet, 1 tablet by Enteral route., Disp: , Rfl: Doxylamine Succinate, Sleep, (UNISOM PO), Take 23 mg by mouth 1 (one) time each day., Disp: , Rfl: famotidine (Pepcid) 20 MG tablet, Take 1 tablet by mouth 2 times a day., Disp: , Rfl: Feeding Supplies [facility] [place], Please send pole for gravity feeds, along with months supply of gravity bagsand 5 rolls of blue tape, Disp: 1 each, Rfl: 5 FIBER PO, 480 mL by Enteral route., Disp: , Rfl: FIBER PO, 240 mL by Enteral route., Disp: , Rfl: finasteride (Proscar) 5 MG tablet, 1 tablet by Enteral route., Disp: , Rfl: HYDROcodone-acetaminophen (Kimberly) 7.5-325 MG tablet, , Disp: , Rfl: hydrOXYzine HCl (Atarax) 25 MG tablet, Take 2 tablets (50 mg) by mouth. Takes 2 at bedtime, Disp: ,Rfl: lidocaine (Xylocaine) 2 % solution, Take 45 mL by mouth 4 times a day as needed for mild pain. Mix 45 mL with water and benedryl as directed, Disp: 200 mL, Rfl: 3 linaCLOtide (Linzess) 290 MCG capsule, Take by mouth., Disp: , Rfl: loratadine (Claritin) 10 MG tablet, Take 1 tablet by mouth., Disp: , Rfl: magic mouthwash (lidocaine, diphenhydramine, Maalox 1:1:1), Swish and spit 10 mL every 4 hours as needed for mucositis or stomatitis., Disp: 1200 mL, Rfl: 3 methocarbamol (Robaxin) 500 MG tablet, 1 tablet (500 mg)., Disp: , Rfl: soonrtzehzgi-tmft-ylyjlgwr-folic acid (Centrum Silver, geriatric,) tablet, Take 1 [...] ondansetron ODT (Zofran-ODT) 4 MG disintegrating tablet, Dissolve 1 tablet on the tongue every 8 hours as needed for nausea or vomiting., Disp: 30 tablet, Rfl: 3 oxyCODONE (Roxicodone) 10 MG immediate release tablet, Take 1 tablet by mouth every 4 hours as needed for severe pain (g89.3)., Disp: 100 tablet, Rfl: 0 oxyCODONE (Roxicodone) 5 MG immediate release tablet, [...] 6 hours as needed., Disp: , Rfl: prochlorperazine (Compazine) 10 MG tablet, Take 1 tablet by mouth every 6 hours as needed for nausea or vomiting., Disp: 30 tablet, Rfl: 5 * Tiesha Monk RN - 06/15/2025 1:04 PM EDT Images from the original note were not included. [id number] Radiation Therapy Treatment Radiation therapy uses beams of high-energy X-rays or other particles to kill cancer cells. It's a common part of cancer treatment. If the radiation therapy is given from a machine outside the body, it is called external-beam radiation therapy. It is the most common type for cancer. If you and yourhealthcare provider decide on radiation, you'll need a treatment planning visit called a simulation. Simulation is the planning session that helps your healthcare provider map out and target the cancer in your body. The process re-creates the exact position you'll be in for each treatment. The radiation plan is made to protect your healthy tissues as much as possible from radiation. Your radiationtherapy team uses a special machine called a simulator to plan your treatment. This might be an X-ray machine, CT scanner, MRI scanner, or PET-CT scanner machine. Laser lights are used to help put you in the right position. During this visit: ? The team figures out the best position for your body. It's often lying on your back. But you might be on your stomach or even on your side. ? Special devices might be made to keep you in the right position and still during treatment. Thesemay include molds, masks, plaster casts, and blocks. ? Ink yee may be put on your skin. These are used to be sure you're in the same position and the radiation goes to the same spot for each treatment. (This part of your skin may be called the treatment field or port.) Tiny permanent tattoos may also be used. These tattoos may be removed later withlaser treatments. ? Markers, such as metal balls or wires, may be put on or in your body. Sometimes these are taped to the skin to help with the imaging process. They're used along with the X-rays to position your body. The markers are removed after each visit. After your team has the imaging scans and other data, all the information is sent into the computer[employer]ogas system. Your healthcare team then makes your treatment plan. Your team figures out exactlywhere the radiation needs to go, the dose of radiation, how often treatments will be given, and what nearby tissues need to be protected. The goal is to get radiation to the tumor while limiting radiation to nearby normal tissues. Your treatments When the simulation and plan are done, you'll start your daily treatments. Treatment is often once daily, Sunday through Sunday, for 2 to 8 weeks. It takes less than 30 minutes. For some cancers, radiation is given twice a day, with about 6 hours between treatments. You may need to change into a hospital gown. The radiation therapist puts you in the right positionon the treatment table. Then they leave the room. Sometimes imaging scans are done before each treatment. The machine may take digital X- rays or a CT scan to help make sure you are lined up correctly. During treatment, lie as still as you can and breathe normally. You'll hear noises coming from the machine. You can talk with the radiation therapist. They will watch you from the control room. Aftertreatment, the therapist will help you off the table. You can then get dressed and go back to your normal activities. After treatment After your radiation treatments are done, you will have follow-up appointments. These are to make sure the cancer is under control and you are recovering from treatment. Tell your healthcare team about any side effects from the treatment. They can help you manage them and keep them from getting worse. Last Reviewed Date: 2023 00:00:00 ?? [id number] [employer]. All rights reserved. This information is not intended as a substitute for professional medical care. Always follow your healthcare professional's instructions. documented in this encounter Plan of Treatment Upcoming Encounters Date Type Department Care Team ([facility] st Contact Info) Description 08/06/2025 9:30 AM EDT Clinical Support [facility] [address] [address] 08/06/2025 9:50 AM EDT Office Visit [facility] [address] [address] Crystal Viera MD 800 [facility] [address] [place] [address] 08/06/2025 11:30 AM EDT Appointment [facility] Infusion 800 [place] [address] 09/14/2025 9:00 AM EST Appointment [facility] Radiology 800 [place] [address] 09/14/2025 10:00 AM EST Office Visit [facility] [address] [address] Yves Cantor MD [address] [facility] [address] [place] [phone] 09/14/2025 11:00 AM EST Appointment [facility] Radiation 800 [facility]. [id number] [place] [address] Inna Chowdary MD 800 [facility] [address] [place] [phone] 09/17/2025 10:30 AM EST Office Visit [facility] 800 [facility], 2nd [place] [address] Crystal Viera MD 800 [facility] [address] [place] [address] 09/29/2025 2:20 PM EST Office Visit [place] [facility] [address], [address] [place] [phone] Dio Burger MD 800 [place], [place] [phone] Scheduled Referrals Name Type Priority Associated Diagnoses Order Schedule Ambulatory referral to Radiation Oncology Outpatient Referral Routine Once for 1 Occurrences starting 06/15/2025 until 06/15/2025 Ambulatory referral to Palliative Care Outpatient Referral Routine Cancer of oral cavity (CMS/HCC) 1 Occurrences starting 06/17/2025 until 12/19/2026 documented as of this encounter Visit Diagnoses Diagnosis 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, unspecified site documented in this encounter Additional Health Concerns Assessment Noted Time PHQ-9 Depression Total Score: 2 06/03/20 9:09 AM EDT A fall risk assessment has been complete d for the patient 06/15/2025 1:15 PM EDT A Body Mass Index follow-up plan has been documented for the patient 07/21/2024 10:08 AM EDT documented as of this encounter Care Teams Roll Clamp Operator Relationship Specialty Start Date End Date Tapan Hill MD [address] [place] [address] PCP - General 03/11/21 Inna Chowdary MD [address] [place] [address] [address] [place] [address] Consulting Physician Radiation Therapy 06/15/25 documented as of this encounter
--- OUTSIDE RECORDS SUMMARY | 2025-06-22 18:49 | XMS_ITS | Encounter Summary ---
Author Organization [facility] Address [address] [place] [address] Care Team Providers Care Oil Heater Operator Name Role Phone Tapan Hill MD Primary Care Provid er Inna Chowdary MD Unavailable [phone] Reason for Visit * Reason Comments PEG problem Encounter Details Date Type Department Care Team (Late st Contact Info) Description 06/22/2025 6:49 PM EDT - 06/23/2025 12:40 AM EDT Emergency [facility] Emergency Department [address] [place] [address] Eddi Wiley MD [address] [address] [address] [place] [address] Margarette Rubio MD [address] [place] [address] PEG tube malfunction (CMS/HCC) (Primary Dx); Cancer of oral cavity (CMS/HCC) Discharge Disposition: Home or Self Care Social [...] Sign Reading Time Taken Comments Blood Pressure 144/72 06/23/2025 12:39 AM EDT Pulse 64 06/23/2025 12:39 AM EDT Temperature 36.9 C (98.5 F) 06/23/2025 12:39 AM EDT Respiratory Rate 18 06/23/2025 12:39 AM EDT Oxygen Saturation 93% 06/23/2025 12:39 AM EDT Inhaled Oxygen Concentration - - Weight 79.4 kg (175 lb) 06/22/2025 7:33 PM EDT Height 177.8 cm (5' 10 ) 06/22/2025 7:33 PM EDT Body Mass Index 25.11 06/22/2025 7:33 PM EDT documented in this encounter Functional Status * Are you deaf or do you have serious difficulty hearing? Answer Date of Assessment Author No 04/15/2021 1:20 PM EDT Adonay Mejias K * Are you blind or do [...] Date of Assessment Author No Risk Indicated 06/22/2025 7:36 PM EDT Alessandra Berry RN * Question Answer Date of Assessment Author 1. Wish to be (Past 1 Month) No 06/22/2025 7:36 PM EDT Alessandra Hui RN 2. Non-Specific Active Suici aneta Thoughts (Past 1 Month) No 06/22/2025 7:36 PM EDT Marci Hui RN 6. Suicidal Behavior (Lifetime) No 7:36 PM EDT Alessandra Hui RN documented as of this encounter Mental Status * Because of a physical, mental, or emotional condition, do you have serious difficulty concentrating, remembering, or making decisions? (5 years old or older) Answer Entry Date Author No 04/15/2021 1:20 PM EDT Adonay Mejias documented in this encounter Discharge Instructions * Discharge Instructions* Henrik Peng MD - 06/23/2025 12:06 AM EDT You were seen in the emergency department for displaced PEG tube. Please follow up with your miscellaneous machine operator outpatient. If symptoms worsen, or new symptoms develop, please return to the emergencydepartment. documented in this encounter Medications at Time [...] mouth 2 times a day. Feeding Supplies [facility] [place] send pole for gravity feeds, along [...] benedryl as directed 200 mL 3 06/15/2025 [id number] inerals-folic acid (Centrum Silver, geriatric,) tablet Take [...] GM/SCOOP powder Take 17 g by mouth. prochlorperazine (Compazine) 10 MG tabletIndications:C ancer of oral cavity Take 1 tablet by mouth every 6 hours as needed for nausea or vomiting. 30 tablet 5 06/16/2025 Sennosides 8.6 MG capsule Take by mouth. [...] pain (g89.3). 100 tablet 06/15/2025 07/15/20 25 HYDROcodone-acetami nophen ([place]) 7.5-325 MG tablet 10/24/2022 0 25 ondansetron ODT (Zofran-ODT) 4 MG disintegrating tablet Dissolve 1 tablet on the tongue every 8 hours as needed for nausea or vomiting. 30 tablet 3 06/15/2025 07/03/20 25 documented as of this encounter Miscellaneous Notes * ED Provider Notes - Henrik Peng MD - 06/22/2025 5:39 PM EDT - HPI Chief Complaint Patient presents with PEG problem PIT NOTE Loi Lux is a 85 y.o. male who presents to the ED with PEG problem. Pt c/o PEG tube becoming dislodged. Pt states PEG tube was placed 4 years ago. Patient has no other complaints at this time. Resident attestation: I agree with the statements above like to add the following. The patient reports that he has had a PEG tube in place for the last 4 years. It became displaced today at 3:00 p.m.when he attempted to remove his dressing without realizing that it was still attached to the PEG tube. table assembler used: No Patient History Past Medical History[1] Surgical History[2] Family History[3] Social History[4] Allergies: Allergies[5] Physical Exam ED Triage Vitals [06/22/25 1806] Temp Heart Rate Resp BP 36.6 ??C (97.9 ??F) 66 18 90/58 SpO2 Temp Source Heart Rate Source Patient Position 91 % Oral -- -- BP Location FiO2 (%) -- -- Physical Exam Constitutional: General: He is not in acute distress. HENT: Head: Normocephalic. Comments: No facial swelling Mouth/Throat: Mouth: Mucous membranes are moist. Pharynx: Oropharynx is clear. Cardiovascular: Rate and Rhythm: Normal rate. Pulmonary: Effort: Pulmonary effort is normal. No respiratory distress. Breath sounds: Normal air entry. Comments: Speaking full sentences. Symmetric chest rise Abdominal: General: There is no distension. Musculoskeletal: General: No deformity. Normal range of motion. Cervical back: Normal range of motion. Comments: Atraumatic, moves all extremities spontaneously Neurological: Mental Status: He is alert. Mental status is at baseline. Comments: Awake Psychiatric: Behavior: Behavior normal. No data recorded ED Course & MDM Date/Time: 06/22/2025 6:49 PM Scribe Attestation: This note was dictated to me, Zeny Meek, acting as a scribe for Sj Delarosa MD. Attending Attestation: The documentation was recorded by Zeny Meek acting as scribe in my presence at the time of the encounter and accurately reflects the service I personally performed. - Assessment: 85 y.o. male presents to ED with complaint of PEG tube displacement. It should be noted that the chronic conditions includes history of PEG tube for 4 years, dysphagia, which currently is not at goaltherapy. This complicates the clinical picture because it Comorbidities: may be exacerbating symptoms and increases the amount and complexity of data to be reviewed Differential Diagnosis: Tube dislodgement, In order to fully explore the differential diagnosis the following treatments and tests were ordered: ED Course as of 06/23/25 0021 Mon Jun 22, [id number] The patient was assessed at bedside. He is comfortable and well-appearing, he had no abdominalpain on palpation of the abdomen. He has a well-established track in the upper abdomen for his PEG tube. He has no obvious trauma to the site. After conversation with him they were agreeable to attempting placement at bedside. Placement was performed successfully after 1 attempts. Confirmatory x- ray was ordered prior to using PEG tube. [MM] [facility] Jun 23, 2025 0009 XR PEG Tube Check Portable [MM] 0013 XR PEG Tube Check Portable [MM] 0020 X-ray personally interpreted by me shows contrast within the lumen of the small intestine. Thepatient has no pain with new so PEG tube. We feel that it is well placed and are comfortable with discharged home at this time. [MM] ED Course User Index [MM] Henrik Peng MD Clinical Impressions as of 06/23/25 0021 PEG tube malfunction (CMS/HCC) Ultimately, this patient was Was discharged Home (Discharge) The encounter diagnosis was PEG tube malfunction (CMS/HCC). . Patient was counseled on the diagnoses. Discharge medications if any are listed below. Listed medications are thought be either curative for listed diagnoses or will help control ongoing symptoms. Patient is requested to follow up with Patient's Primary Care Provider in order to obtain routine follow-up. Instructions on follow up as well as precautions to return to the ER provided verbally by the EM provider, as well as written in patients discharge education packet. 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 ([facility]/HCC) 02/07/2022 Coronary artery disease 2020 COVID-19 09/2023 Dysplastic colon polyp 03/19/2016 Description: sigmoid, pedunculated, removed completely in [place] 01/2016 Description: sigmoid, pedunculated, removed completely in [place] 01/2016 Essential (primary) hypertension Hypertension GERD (gastroesophageal reflux disease) 2023 Heart failure Inflammatory liver disease, unspecified Hepatitis Lower back pain Personal history of irradiation 1983 Personal history of other diseases of the circulatory system History of coronary artery disease Personal history of other diseases of the musculoskeletal system and connective tissue History of spinal stenosis Pure hypercholesterolemia, unspecified High cholesterol Skin cancer 1979 Stroke ([facility]) Stroke ([facility]) [2] Past Surgical History: Procedure Laterality Date CARDIAC STENT CATARACT EXTRACTION W/ INTRAOCULAR LENS IMPLANT Right [facility]/21/[id number].0 D S/N [id number] COLONOSCOPY 1999 CORONARY ARTERY BYPASS GRAFT 2020 CORONARY STENT PLACEMENT 2020 FEEDING TUBE PLACEMENT INSERT / REPLACE / REMOVE PACEMAKER 2020 LEG SURGERY MANDIBLE SURGERY N/A Mandible surgery from [facility] MOUTH BIOPSY OTHER SURGICAL HISTORY N/A Defibrillator 2020 Dissection of neck from [facility] PROSTHODONTIC PROCEDURE ROTATOR CUFF REPAIR N/A Repair of rotator cuff from [facility] SKIN CANCER EXCISION N/A Skin cancer excision from [facility] TONGUE SURGERY N/A tongue surgery from [facility] [3] Family History Problem Relation Name Age of Onset Cardiac disorder Other Hypertension Other Heart disease Mother Heart disease Father Macular degeneration Sister Cancer Sister Cataracts Sister Heart disease Sister Cancer Brother Cataracts Brother Heart disease Brother [4] Tobacco Use Smoking status: Former Current packs/day: 0.00 Average packs/day: 0.5 packs/day for 15.0 years (7.5 ttl pk-yrs) Types: Cigarettes Start date: 10/29/1957 Quit date: 1972 Years since quittin.6 Passive exposure: Past Smokeless tobacco: Never Vaping Use Vaping status: Never Used Substance Use Topics Alcohol use: Not Currently Drug use: Never [5] No Known Allergies Henrik Peng MD Resident 06/23/25 0108 Cosigned by Margarette Rubio MD at 06/23/2025 1:35 AM EDT Associated attestation - Margarette Rubio MD - 06/23/2025 1:35 AM EDT I saw and evaluated the patient with the resident/fellow. I discussed the case with the resident/fellow and agree with the findings and plan as documented. * ED Triage Notes - Mary Robbins RN - 06/22/2025 5:39 PM EDT Pt PEG tube fell out. Denies any currently complaints. documented in this encounter Plan of Treatment Upcoming Encounters Date Type Department Care Team (Late st Contact Info) Description 08/06/2025 9:30 AM EDT Clinical Support [facility] 800 [facility], [address]nd [place] [address] 08/06/2025 9:50 AM EDT Office Visit [facility] 800 [facility], [address]nd [place] [address] Crystal Viera MD [address] Tamara [facility] [address] [place] [address] 08/06/2025 11:30 AM EDT Appointment [facility] H Infusion 800 [place] [phone] 09/14/2025 9:00 AM EST Appointment [facility] H Radiology 800 [place] [phone] 09/14/2025 10:00 AM EST Office Visit [facility] 800 [facility] 2nd [place] [phone] Yves Cantor MD [address] [facility] [address] [place] [address] 09/14/2025 11:00 AM EST Appointment [facility] CC Radiation 800 [facility]. [address] [place] [phone] Inna Chowdary MD 800 [facility] [address] [place] [address] 09/17/2025 10:30 AM EST Office Visit [facility] Res[facility] 800 [facility] [address] [place] [address] Crystal Viera MD [address] [place] [address] [facility] [address] [place] [address] 09/29/2025 2:20 PM EST Office Visit [place] [facility] [address], [address] [place] [address] Dio Burger MD 800 [place] [address] Scheduled Orders Name Type Priority Associated Diagnoses Orde r Schedule CBC and differential Lab Routine 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 Expected: 08/06/2025, Expires: 08/06/2026 Comprehensive metabolic panel Lab Routine 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 Expected: 08/06/2025, Expires: 08/06/2026 TSH reflex FT4 Lab Routine 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 CRITICAL RESULT: No. COMMUNICATION: Per this written report. By electronically signing this report, I, the attending physician, attest that I have personally reviewed the images/data for the above examination(s) and agree with the final edited report. Drafted by Cheyanne Strickland MD on 06/23/2025 1:02 AM Final report signed by Kimani Jerez MD on 06/23/2025 1:13 AM Narrative 06/23/2025 1:13 AM EDT CLINICAL INDICATION: replaced PEG tube, confirmatory shot TECHNIQUE: XR PEG TUBE CHECK PORTABLE COMPARISON: 04/11/2021 abdominal radiograph FINDINGS: PEG tube visualized within the mid stomach with contrast in the proximal small bowel. No evidence of visualized pneumatosis or pneumoperitoneum. No small or large bowel dilatation. Partially imaged lower chest is normal. Prior median sternotomy and coronary artery bypass graft. Procedure Note Kimani Jerez MD - 06/23/2025 CLINICAL INDICATION: replaced PEG tube, confirmatory shot TECHNIQUE: XR PEG TUBE CHECK PORTABLE COMPARISON: 04/11/2021 abdominal radiograph FINDINGS: PEG tube visualized within the mid stomach with contrast in the proximalsmall bowel. No evidence of visualized pneumatosis or pneumoperitoneum. Nosmall or large bowel dilatation. Partially imaged lower chest is normal.Prior median sternotomy and coronary artery bypass graft. IMPRESSION: PEG tube visualized within the mid stomach with contrast in the proximalsmall bowel. CRITICAL RESULT: No. COMMUNICATION: Per this written report. By electronically signing this report, I, the attending physician, florence I have personally reviewed the images/data for the aboveexamination(s) and agree with the final edited report. 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, unspecified site documented in this encounter Administered Medications Inactive Administered Medications - up to 3 most recent administrations Medication Order MAR Action Action Date Dose Rate Site HYDROcodone-acetaminophe n ([place]) 5-325 MG per tablet 10 mg of hydrocodone 10 mg of hydrocodone, Oral, Every 4 hours PRN, Starting on Sun06/22/25 at 2130, Until Sun06/23/25 at 0240, STAT, moderate pain, severe pain Given 06/23/2025 12:16 AM EDT 10 mg of hydrocodone iohexol (OMNIPaque) 240 MG/ML injection 50 mL 50 mL, Per PEG Tube, Once in imaging, 1 dose, Starting on Sun06/22/25 at 2347, Until Sun06/22/25 at 2359, Routine, Imaging Protocol Orders Given 06/22/2025 11:59 PM EDT 50 mL documented in this encounter Active and Recently Administered Medications Times are shown in EDT. Scheduled Medication Order 06/21/2025 06/22/2025 06/23/2025 iohexol (OMNIPaque) 240 MG/ML injection 50 mL (COMPLETED) 50 mL, Per PEG Tube, Once in imaging, 1 dose, Starting on Sun06/22/25 at 2347, Until Sun06/22/25 at 2359, Routine, Imaging Protocol Orders 2359 (Given - Provider: Marizol Myers) PRN Medication Order 06/21/2025 06/22/2025 06/23/2025 HYDROcodone-acetaminophen ([place]) 5-325 MG per tablet 10 mg of hydrocodone 10 mg of hydrocodone, Oral, Every 4 hours PRN, Starting on Sun06/22/25 at 2130, Until Sun06/23/25 at 0240, STAT, moderate pain, severe pain 0016 (Given - Provid er: Alessandra Hui RN) documented in this encounter Additional Health Concerns Assessment Noted Time PHQ-9 Depression Total Score: 2 06/03/20 25 9:09 AM EDT A fall risk assessment has been complete d for the patient 06/15/2025 1:15 PM EDT A Body Mass Index follow-up plan has been documented for the patient 07/21/2024 10:08 AM EDT documented as of this encounter Care Teams Oil Heater Operator Relationship Specialty Start Date End Date Tapan Hill MD [address] [place] [address] PCP - General 03/11/21 Inna Chowdary MD [address] [place] [address] Consulting Physician Radiation Therapy 06/15/25 documented as of this encounter
--- OUTSIDE RECORDS SUMMARY | 2025-06-24 12:55 | XMS_ITS | Encounter Summary ---
Author Organization [facility] Address [address] 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 Procedures CT Chest w IV Contrast Crystal Viera MD [address] [phone] Phone: tel: fax: Referral ID Status Reason Start Date Expiration Date V isits Requested Visits Authorized [id number] Pending Review 06/24/2025 12/24/2026 1 1 * Imaging (Routine) - Pending Review Specialty Diagnoses / Procedures Referred By Jw de la cruz Referred To Contact Radiology Diagnoses 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 Procedures CT Soft Tissue Neck w IV Contrast Crystal Viera MD [address] [phone] Phone: tel: fax: Referral ID Status Reason Start Date Expiration Date V isits Requested Visits Authorized [id number] Pending Review 06/24/2025 12/24/2026 1 1 Reason for Visit * Episode Based Medications (Routine) - Authorized Specialty Diagnoses / Procedures Referred By Contac t Referred To Contact Diagnoses 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 Procedures Pembrolizumab Every 42 Days Crystal Viera MD [address] [place] [phone] Phone: tel: fax: Crystal Viera MD [address] [place] [phone] Phone: tel: fax: Referral ID Status Reason Start Date Expiration Date V isits Requested Visits Authorized [id number] Authorized 06/23/2025 12/25/2026 1 3 Encounter Details Date Type Department Care Team (Latest Contact Info) Description 06/24/2025 12:55 PM EDT Hospital Encounter [facility] [address] [place] [phone] Osteoradionecrosis (CMS/HCC) (Primary Dx); Hypothyroidism due to medicaments and other exogenous substances; Cancer of oral cavity (CMS/HCC); 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) Discharge Disposition: Home or Self Care [...] Sign Reading Time Taken Comments Blood Pressure 121/78 06/24/2025 4:30 PM EDT Pulse 61 06/24/2025 4:30 PM EDT Temperature 36.6 C (97.8 F) 06/24/2025 12:56 PM EDT Respiratory Rate 16 06/24/2025 12:5 6 PM EDT Oxygen Saturation 95% 06/24/2025 12: 56 PM EDT Inhaled Oxygen Concentration - - Weight 83.4 kg (183 lb 13.8 oz) 025 12:56 PM EDT Height 177.8 cm (5' 10 ) 06/24/2025 12: 56 PM EDT Body Mass Index 26.38 06/24/2025 12:56 PM EDT documented in this encounter Functional [...] 1:20 PM EDT Adonay Mejias mma K documented as of this encounter Mental Status * Because of a physical, mental, or emotional condition, do you have serious difficulty concentrating, remembering, or making decisions? (5 years old or older) Answer Entry Date Author No 04/15/2021 1:20 PM EDT Adonay Mejias mma K documented in this encounter Medications at Time [...] mouth 2 times a day. Feeding Supplies [facility] Please send pole for gravity feeds, along [...] benedryl as directed 200 mL 3 06/15/2025 [id number] inerals-folic acid (Centrum Silver, geriatric,) tablet Take [...] 100 tablet 06/15/2025 07/15/20 25 HYDROcodone-acetami nophen ([place]) 7.5-325 MG tablet 10/24/2022 0 25 ondansetron ODT (Zofran-ODT) 4 MG disintegrating tablet Dissolve 1 tablet on the tongue every 8 hours as needed for nausea or vomiting. 30 tablet 3 06/15/2025 07/03/20 25 documented as of this encounter Plan of Treatment Upcoming Encounters Date Type Department Care Team (Late st Contact Info) Description 08/06/2025 9:30 AM EDT Clinical Support [facility] [address] [facility]nd [place] [phone] 08/06/2025 9:50 AM EDT Office Visit [facility] [address] [facility], [address] [place] [address] Crystal Viera MD [address] [facility] [address] [place] [phone] 08/06/2025 11:30 AM EDT Appointment [facility] [address] [place] [address] 09/14/2025 9:00 AM EST Appointment [facility] [address] [place] [phone] 09/14/2025 10:00 AM EST Office Visit [facility] [address] [facility] 2nd [place] [address] Yves Cantor MD [address] [facility] [address] [place] [phone] 09/14/2025 11:00 AM EST Appointment [facility] [address] [facility]. [id number] [place] [phone] Inna Chowdary MD [address] [facility] [address] [place] [phone] 09/17/2025 10:30 AM EST Office Visit [facility] [address] [facility] [address] [place] [phone] Crystal Viera MD [address] [facility] [address] [place] [address] 09/29/2025 2:20 PM EST [facility] Visit [facility] [address], [address] [place] [address] Dio Burger MD [address] [place], [place] [phone] Scheduled Orders Name Type Priority Associated Diagnoses Orde r Schedule CT Soft Tissue Neck w IV Contrast Imaging Routine 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) Expected: 09/14/2025 (Approximate), Expires: 12/26/2026 CBC and Differential Lab Routine 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) Expected: 09/14/2025, Expires: 12/26/2026 Comprehensive Metabolic Panel, Plasma Lab Routine 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) Expected: 09/14/2025, Expires: 12/26/2026 Thyroid Stimulating Hormone, Plasma Lab Routine 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) Expected: 09/14/2025, Expires: 12/26/2026 CT Chest w IV Contrast Imaging Routine 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) Expected: 09/14/2025, Expires: 12/26/2026 documented as of this encounter Visit Diagnoses Diagnosis Osteoradionecrosis (CMS/HCC)- Primary 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 Use 0.2 micron filter., On Sun06/24/25 at 1515, For 1 dose, In 100 mL NSIndications:Hypothyroidism due to medicaments and other exogenous substances,Cancer of oral cavity New Bag 06/24/2025 3:00 PM EDT 400 mg 292 mL/hr documented in this encounter Additional Health Concerns Assessment Noted Time PHQ-9 Depression Total Score: 2 06/03/20 25 9:09 AM EDT A fall risk assessment has been complete d for the patient 06/24/2025 12:56 PM EDT A Body Mass Index follow-up plan has been documented for the patient 06/24/2025 2:03 PM EDT documented as of this encounter Care Teams Detention Officer Relationship Specialty Start Date End Date Tapan Hill MD [address] [place] [address] PCP - General 03/11/21 Inna Chowdary MD [address] [place] [phone] Consulting Physician Radiation Therapy 06/15/25 documented as of this encounter
--- OUTSIDE RECORDS SUMMARY | 2025-06-24 12:56 | XMS_ITS | Encounter Summary ---
Author Organization [facility] Address [address] [place] [address] Care Team Providers Care Quality Assurance Qa Lab Analyst Name Role Phone Tapan Hill MD Primary Care Provid er Inna Chowdary MD [facility] [phone] Encounter Details Date Type Department Care Team (Latest Contact Info) Description 06/24/2025 12:56 PM EDT - 06/24/2025 11:59 PM EDT Hospital Encounter [facility] [address] [place] [address] Cancer of oral cavity (CMS/HCC) (Primary Dx); CINV (chemotherapy-induce d nausea and vomiting); Neoplasm related pain; Moderate protein-calorie malnutrition (CMS/HCC); Oropharyngeal dysphagia Discharge Disposition: Home or Self Care Social [...] 04/15/2021 1:20 PM Adonay Graves K * Are you blind or do you have serious difficulty seeing, even when wearing glasses? Answer Date of Assessment Author No 04/15/2021 1:20 PM Adonay Graves K * Do you have serious difficulty walking or climbing stairs? Answer Date of Assessment Author No 04/15/2021 1:20 PM Adonay Graves K * Do you have serious difficulty dressing or bathing? Answer Date of Assessment Author No 04/15/2021 1:20 PM EDAdonay Pickard K * Because of a physical, mental, or emotional condition, do you have serious difficulty doing errandsalone such as visiting the doctor? Answer Date of Assessment Author No 04/15/2021 1:20 PM Adonay Graves documented as of this encounter Mental Status * Because of a physical, mental, or emotional condition, do you have serious difficulty concentrating, remembering, or making decisions? (5 years old or older) Answer Entry Date Author No 04/15/2021 1:20 PM Adonay Graves documented in this encounter Medications at Time [...] mouth 2 times a day. Feeding Supplies [facility] [place] Please send pole for gravity feeds, along [...] benedryl as directed 200 mL 3 06/15/2025 zodwvwqfbafw-ruln-l inerals-folic acid (Centrum Silver, geriatric,) tablet Take [...] 100 tablet 06/15/2025 07/15/20 25 HYDROcodone-acetami nophen ([place]) 7.5-325 MG tablet 10/24/2022 0 25 ondansetron ODT (Zofran-ODT) 4 MG disintegrating tablet Dissolve 1 tablet on the tongue every 8 hours as needed for nausea or vomiting. 30 tablet 3 06/15/2025 07/03/20 25 documented as of this encounter Miscellaneous Notes * Progress Notes - Crystal Viera MD - 06/24/2025 1:00 PM EDT Images from the original note were not included. Patient Information Patient Name: Loi Lux Date of : 1940 REFERRING PHYSICIAN: No referring provider defined for this encounter. Encounter Date: 06/24/2025 Loi Lux is a 85 y.o. male who returns for followup of his Cancer Staging Cancer of oral cavity (CMS/HCC), Staging form: Oral Cavity, AJCC 8th Edition, Clinical:. he returnsfor followup and for initiation of Immunotherapy today. 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 The patient had postoperative radiation therapy performed by Dr. Pradip Miller at [facility]. 1990 - reconstruction with rectus flap, right iliac crest bone graft in [place] 07/08/2020 - seen by Vascular Surgery at (Dr. Bingham) for carotid occlusion (right side 100%, leftside 50%). 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 Mild interstitial lung disease. PEG tube replacement 06/22/25 (pt to ED after tube was dislodged) PET CT 06/23/25 shows interval development of hypermetabolic right ORAL CAVITY mucosal thickening and uptake, resolution of a left neck node, but development of a hypermetabolic axillary node, bilateral inflammatory changes in both lung bases, and mild right rib hypermetabolic activity. Initiates palliative Immunotherapy on 06/24/25. Cancer of oral cavity (CMS/HCC) 02/07/2022 Initial Diagnosis Cancer of oral cavity (CMS/HCC) 05/13/2025 Cancer Staged Staging form: Oral Cavity, AJCC 8th Edition, Clinical stage from 05/13/2025: No stage assigned - Signed by Inna Chowdary MD on 06/17/2025 06/24/2025 - Chemotherapy pembrolizumab (Keytruda) 400 mg in sodium chloride 0.9% 100 mL IVPB, 400 mg, Intravenous, Once, 1 of 24 cycles He has continued oral pain, as well as devility and had to have his PEG tube replaced due to it faling out two days ago. Pertinent records are reviewed today from recent visit to ER for PEG tube replacement. Problem List and Medications Reviewed and updated in this encounter by me personally Objective Performance Status 2: Ambulatory and capable of all self-care but unable to work. Up & about >50% waking hours 06/15/2025 10:22 AM 06/15/2025 1:10 PM 06/22/2025 6:06 PM 06/22/2025 7:33 PM 06/22/2025 10:37 PM 06/23/2025 12:39 AM 06/24/2025 12:56 PM Vitals Systolic 122 127 90 135 144 111 Diastolic 71 76 58 73 72 66 Heart Rate 63 69 66 66 64 63 Temp 36.3 C 36.5 C 36.6 C 36.7 C 36.9 C 36.6 C Resp 18 16 18 18 18 16 Height (cm) 177.8 cm 177.8 cm 177.8 cm Weight (kg) 78.926 kg -- 79.379 kg 83.4 kg BMI 24.97 kg/m2 24.97 kg/m2 25.11 kg/m2 26.38 kg/m2 BSA (m2) 1.97 m2 1.97 m2 1.98 m2 2.03 m2 Visit Report Report Report EXAM Physical Exam Constitutional: General: He is not in acute distress. Appearance: He is not ill-appearing. HENT: Head: Normocephalic and atraumatic. Right Ear: External ear normal. Left Ear: External ear normal. Nose: Nose normal. Mouth/Throat: Mouth: Mucous membranes are dry. Pharynx: No oropharyngeal exudate. Comments: Recurrent FOM tumor, trismus, drooling Eyes: Extraocular Movements: Extraocular movements intact. Pupils: Pupils are equal, round, and reactive to light. Neck: Comments: Bilateral neck dissections and radiation therapy changes. Cardiovascular: Rate and Rhythm: Normal rate and regular rhythm. Heart sounds: No murmur heard. No friction rub. No gallop. Pulmonary: Effort: Pulmonary effort is normal. No respiratory distress. Breath sounds: Normal breath sounds. No stridor. No wheezing. Abdominal: General: Bowel sounds are normal. There is no distension. Palpations: There is no mass. Tenderness: There is no abdominal tenderness. Comments: PEG tube in place, no erythema Musculoskeletal: Cervical back: Tenderness present. Lymphadenopathy: Cervical: No cervical adenopathy. Upper Body: Right upper body: No axillary adenopathy. Left upper body: Axillary adenopathy (small mobile left ax node) present. Neurological: Mental Status: He is alert and oriented to person, place, and time. Cranial Nerves: No dysarthria. Sensory: No sensory deficit. Gait: Gait abnormal (uses wheelchair). Psychiatric: Mood and Affect: Mood normal. Behavior: Behavior normal. 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 Lab Results Component Value Date TSH 2.78 06/24/2025 Radiology: I independently visualized the recent imaging given the patient's symptoms and oncologic history - I visualized it with the pt and family PET CT 06/23/25 shows interval development of hypermetabolic right ORAL CAVITY mucosal thickening and uptake, resolution of a left neck node, but development of a hypermetabolic axillary node, bilateral inflammatory changes in both lung bases, and mild right rib hypermetabolic activity. Assessment/Plan 1. 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 - locally advanced oral cavity cancer, and node, but no evidence of distant disease. - I extensively reviewed the risk and benefits of starting Immunotherapy including benefits of paincontrol and disease control but not cure, and the risk of worsening pulmonary fibrosis, and other side effects - Radiology: I independently visualized the recent imaging given the patient's symptoms and oncologic history and discussed the current radiology findings with the patient in detail and answered all questions. I agree that this shows left axillary node which may or may not be related to his cancer, and FOM recurrence, but no other distant metastatic disease. - I reviewed liver and renal function as well as bone marrow function in relationship to this patient's ability to tolerate systemic cancer treatment - He has a CPS of 90 based on his pathology from 2019. - IF Immunotherapy does not control pain and tumor, most likely receive palliative XRT to his oral cavity. - RTC 6W for next cycle, plan repeat CT scans in 12W - informed family 2. Pain related to neoplasm: - He is not requiring any narcotics at this time,but has a script for oxycodone if needed 3. Protein-calorie malnutrition secondary to cancer: mild - with loss of muscle mass, - continue tube feedings as sole form of nutrition 4. Monitoring for the emergence of hypothyroidism due to radiation - TSH is WITHIN NORMAL LIMITS at last check - This will be periodically monitored as we continue therapy, due to the potential for worsening ofthyroid function from radiation and systemic cancer therapy. 5. Anticipated Chemotherapy Induced Nausea: - I prescribed ondansetron, compazine and will monitor for nausea and vomiting. 6. T12 fracture PET scan does not show uptake in this region. Crystal Viera MD * Progress Notes - Kylah Danielle, PharmD - 06/24/2025 1:00 PM EDT Pharmacy Hematology/Oncology Treatment Note Jass Lux is a 85 y.o. male with Cancer Staging Cancer of oral cavity (CMS/HCC) Staging form: Oral Cavity, AJCC 8th Edition - Clinical stage from 05/13/2025: No stage assigned - Signed by Inna Chowdary MD on 06/17/2025 Study Patient: no Treatment Plan reviewed for Pembrolizumab every 42 days. [x] Follow-Up Clinical Review for Cycle 1 [] Follow-Up Clinical Review for Continuous Oral Therapy Interval History: 06/24/25: Mr. Lux presents to infusion to begin pembrolizumab treatment for recurrent HNSCC. Hereceived counseling on this regimen and signed consent at most recent clinic visit. Labs are appropriate to begin treatment. Today's Wt: Wt Readings from Last 1 Encounters: 06/24/25 83.4 kg (183 lb 13.8 oz) Dosing Wt: N/A Dosing Ht: N/A DosingBSA: N/A Recent Labs: Lab Results Component Value Date WBC 7.83 06/24/2025 HGB 11.3 (L) 06/24/2025 HCT 33.1 (L) 06/24/2025 MCV 100 (H) 06/24/2025 PLT 252 06/24/2025 Lab Results Component Value Date GLUCOSE 118 (H) 06/24/2025 CALCIUM 8.9 06/24/2025 NA 140 06/24/2025 K 4.6 06/24/2025 CO2 25 06/24/2025 CL 104 06/24/2025 BUN 19 06/24/2025 CREATININE 0.80 06/24/2025 Lab Results Component Value Date ALT 20 06/24/2025 AST 28 06/24/2025 ALKPHOS 109 06/24/2025 BILITOT 0.4 06/24/2025 Lab Results Component Value Date NEUTROABS 5.77 06/24/2025 Lab Results Component Value Date TSH 2.78 06/24/2025 Vitals: There were no vitals taken for this visit. Other Relevant Monitoring: PD-L1: PDL1 IHC 22C3 PharmDx (L neck tissue, 08/25/20): CPS 90 Treatment/Therapy Plan: Pembrolizumab 400 mg IV [flat dose] on Day 1 Every 42 days [x] No dose adjustments made Current Treatment Plan History: Pembrolizumab C1: 06/24/25 Prior Treatment History: R glossectomy, R neck dissection 1983 Adjuvant XRT 1983 L neck dissection for recurrent disease 07/2020 XRT 60 Gy to L neck 08/2020-10/2020 Plan: Patient will return to clinic in 6 weeks. Will follow-up at that time. Pharmacist Attestation: Kylah Danielle PharmD Clinical Oncology Pharmacist documented in this encounter Plan of Treatment Upcoming Encounters Date Type Department Care Team ([facility] st Contact Info) Description 08/06/2025 9:30 AM EDT Clinical Support [facility] [address] [phone] 08/06/2025 9:50 AM EDT Office Visit [facility] [address] [phone] Crystal Viera MD 800 [facility] [address] [place] [address] 08/06/2025 11:30 AM EDT Appointment [facility] [address] [place] [address] 09/14/2025 9:00 AM EST Appointment [facility] Radiology [address] [place] [address] 09/14/2025 10:00 AM EST Office Visit [facility] [address] [facility], 2nd [place] [phone] Yves Cantor MD [address] [facility] [address] [place] [address] 09/14/2025 11:00 AM EST Appointment [facility] Radiation [address] [facility]. [id number] [place] [phone] Inna Chowdary MD 800 [facility] [address] [place] [address] 09/17/2025 10:30 AM EST Office Visit [facility] [address] [facility] 2nd [place] [address] Crystal Viera MD 800 [facility] [address] [place] [address] 09/29/2025 2:20 PM EST Office Visit [facility] [address] [place] [address] Dio Burger MD [address] [place] [address] Scheduled Orders Name Type Priority Associated Diagnoses Orde r Schedule CBC and differential Lab Routine Cancer of oral cavity (CMS/HCC) Expected: 09/17/2025, Expires: 09/17/2026 Comprehensive metabolic panel Lab Routine Cancer of oral cavity (CMS/HCC) Expected: 09/17/2025, Expires: 09/17/2026 TSH reflex FT4 Lab Routine Cancer of oral cavity (CMS/HCC) Expected: 09/17/2025, Expires: 09/17/2026 documented as of this encounter Procedures Procedure Name Priority Date/Time Associated Diagnosis Comments TSH REFLEX FT4 Routine 06/24/2025 1:09 PM EDT Cancer of oral cavity (CMS/HCC) CBC WITH AUTO DIFFERENTIAL Routine 06/24/2025 1:09 PM EDT Cancer of oral cavity (CMS/HCC) COMPREHENSIVE METABOLIC PANEL, PLASMA Routine 06/24/2025 1:09 PM EDT Cancer of oral cavity (CMS/HCC) documented in this encounter Results * (ABNORMAL) CBC and differential (06/24/2025 1:09 PM EDT) WBC Count 7.83 3.70 - 10.30 10*3/uL LAB HEMATOLOGY METHOD 06/24/2025 1:45 PM EDT [facility] RBC Count 3.31(L) 4.60 - 6.10 10*6/uL LAB HEMATOLOGY METHOD 06/24/2025 1:45 PM EDT [facility] HGB 11.3(L) 13.7 - 17.5 g/dL LAB HEMATOLOGY METHOD 06/24/2025 1:45 PM EDT [facility] HCT 33.1(L) 40.0 - 51.0 % LAB HEMATOLOGY METHOD 06/24/2025 1:45 PM EDT [facility] Platelet Count 252 155 - 369 10*3/uL LAB HEMATOLOGY METHOD 06/24/2025 1:45 PM EDT [facility] MCV 100(H) 79 - 98 fL LAB HEMATOLOGY METHOD 06/24/2025 1:45 PM EDT [facility] MCH 34.1(H) 26.0 - 32.0 pg LAB HEMATOLOGY METHOD 06/24/2025 1:45 PM EDT [facility] MCHC 34.1 30.7 - 35.5 g/dL LAB HEMATOLOGY METHOD 06/24/2025 1:45 PM EDT [facility] RDW 12.6 11.5 - 14.5 % LAB HEMATOLOGY METHOD 06/24/2025 1:45 PM EDT [facility] MPV 9.9 8.8 - 12.5 fL LAB HEMATOLOGY METHOD 06/24/2025 1:45 PM EDT [facility] nRBC 0.0 <=0.0 per 100 WBCs LAB HEMATOLOGY METHOD 06/24/2025 1:45 PM EDT [facility] Differential Type Automated LAB HEMATOLOGY METHOD 06/24/2025 1:45 PM EDT [facility] Neutrophils % 73 % LAB HEMATOLOGY METHOD 06/24/2025 1:45 PM EDT [facility] Lymphocytes % 14 % LAB HEMATOLOGY METHOD 06/24/2025 1:45 PM EDT [facility] Monocytes % 8 % LAB HEMATOLOGY METHOD 06/24/2025 1:45 PM EDT [facility] Eosinophils % 3 % LAB HEMATOLOGY METHOD 06/24/2025 1:45 PM EDT [facility] Basophils % 1 % LAB HEMATOLOGY METHOD 06/24/2025 1:45 PM EDT [facility] Immature Granulocytes % 1 % LAB HEMATOLOGY METHOD 06/24/2025 1:45 PM EDT [facility] Neutrophils Absolute 5.77 1.60 - 6.10 10*3/uL LAB HEMATOLOGY METHOD 06/24/2025 1:45 PM EDT [facility] Lymphocytes Absolute 1.06(L) 1.20 - 3.90 10*3/uL LAB HEMATOLOGY METHOD 06/24/2025 1:45 PM EDT [facility] Monocytes Absolute 0.66 0.30 - 0.90 10*3/uL LAB HEMATOLOGY METHOD 06/24/2025 1:45 PM EDT [facility] Eosinophils Absolute 0.25 0.00 - 0.50 10*3/uL LAB HEMATOLOGY METHOD 06/24/2025 1:45 PM EDT [facility] Basophils Absolute 0.04 0.00 - 0.10 10*3/uL LAB HEMATOLOGY METHOD 06/24/2025 1:45 PM EDT [facility] Immature Granulocytes Absolute 0.05 0.00 - 0.06 10*3/uL LAB HEMATOLOGY METHOD 06/24/2025 1:45 PM EDT [facility] Blood Venous blood specimen / Unknown Venipuncture / Unknown 06/24/2025 1:09 PM EDT 06/24/2025 1:[address] [facility] - 06/24/2025 1:45 PM EDT Therapeutic decision making should be based on absolute values, rather than percentages. us Crystal Viera MD LAB BLOOD ORDERABLES Final R esult [facility] [address] [place] [address] * (ABNORMAL) Comprehensive metabolic panel (06/24/2025 1:09 PM EDT) Glucose, Plasma 118(H) 74 - 99 mg/dL 06/24/2025 2:22 PM EDT [facility] BUN, Plasma 19 8 - 23 mg/dL 06/24/2025 2:22 PM EDT [facility] Creatinine, Plasma 0.80 0.70 - 1.20 mg/dL 06/24/2025 2:22 PM EDT [facility] BUN/Creatinine Ratio 24 06/24/2025 2:22 PM EDT [facility] Sodium, Plasma 140 136 - 145 mmol/L 06/24/2025 2:22 PM EDT [facility] Potassium, Plasma 4.6 3.6 - 4.9 mmol/L 06/24/2025 2:22 PM EDT [facility] Chloride, Plasma 104 97 - 107 mmol/L 06/24/2025 2:22 PM EDT [facility] CO2, Plasma 25 22 - 29 mmol/L 06/24/2025 2:22 PM EDT [facility] Anion Gap 11 6 - 16 mmol/L 06/24/2025 2:22 PM EDT [facility] Total Calcium, Plasma 8.9 8.9 - 10.2 mg/dL 06/24/2025 2:22 PM EDT [facility] Total Protein 6.5 6.3 - 7.9 g/dL 06/24/2025 2:22 PM EDT [facility] Albumin, Plasma 3.6 3.5 - 5.2 g/dL 06/24/2025 2:22 PM EDT [facility] AST, Plasma 28 10 - 50 U/L 06/24/2025 2:22 PM EDT [facility] Comment:Hemolyzed, result ma y be falsely increased. ALT, Plasma 20 10 - 50 U/L 06/24/2025 2:22 PM EDT [facility] Alkaline Phosphatase, Plasma 109 40 - 115 U/L 06/24/2025 2:22 PM EDT [facility] Total Bilirubin, Plasma 0.4 0.2 - 1.1 mg/dL 06/24/2025 2:22 PM EDT [facility] eGFRcr 86.7 mL/min/1.7 3m*2 06/24/2025 2:22 PM EDT [facility] Comment:Reported eGFRcr in m L/min/1.73m2 is based the CKD-EPI 2020 equation that does not use a race coefficient. Blood Venous blood specimen / Unknown Venipuncture / Unknown 06/24/2025 1:09 PM EDT 06/24/2025 1:45 PM EDT Crystal Viera MD LAB BLOOD ORDERABLES Final R esult Performing Organization Address [facility] Co de Phone Number [facility] [address] [place] [address] * TSH reflex FT4 (06/24/2025 1:09 PM EDT) Thyroid Stimulating Hormone, Plasma 2.78 0.40 - 4.20 uIU/mL 06/24/2025 2:22 PM EDT [facility] Blood Venous blood specimen / Unknown Venipuncture / Unknown 06/24/2025 1:09 PM EDT 06/24/2025 1:45 PM EDT Crystal Viera MD LAB BLOOD ORDERABLES Final R esult Performing Organization Address City/[facility] [place] [address] documented in this encounter Visit Diagnoses Diagnosis 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, unspecified site CINV (chemotherapy-induced nausea and vomiting) Neoplasm related pain Neoplasm related pain (acute) (chronic) Moderate protein-calorie malnutrition (CMS/HCC) Oropharyngeal dysphagia Dysphagia, [...] documented as of this encounter Care Teams Quality Assurance Qa Lab Analyst Relationship Specialty Start Date End Date Tapan Hill MD [address] [place] [address] PCP - General 03/11/21 Inna Chowdary MD [address] [place] [phone] Consulting Physician Radiation Therapy 06/15/25 documented as of this encounter
--- OUTSIDE RECORDS SUMMARY | 2025-06-30 13:30 | XMS_ITS | Encounter Summary ---
Author Organization [facility] Address [address] [place] [address] Care Team Providers Care Acid Dumper Name Role Phone Natalia Gleason MD Primary Care Provider Nicolette sams Reason for Visit * Reason Comments HFrEF (EF <20%) Encounter Details Date Type Department Care Team (Late st Contact Info) Description 06/30/2025 1:30 PM EDT Office Visit [facility] [address] [facility] [address] [place] [phone] Laith Oliveira PA-C [address] [facility] [address] [place] [address] Cardiomyopathy, ischemic (Primary Dx); Presence of biventricular implantable cardioverter-defibril lator (ICD); Paroxysmal atrial fibrillation post-op after CABG; Essential hypertension Social History Tobacco Use Types Packs/Day Years [...] 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 [employer] Not on file Not on file Not o n file documented as of this encounter Last Filed Vital Signs Vital Sign Reading Time Taken Comments Blood Pressure 140/78 06/30/2025 1:16 PM EDT Pulse 79 06/30/2025 1:16 PM EDT Temperature - - Respiratory Rate - - Oxygen Saturation 97% 06/30/2025 1:16 PM EDT Inhaled Oxygen Concentration - - Weight 83 kg (183 lb) 06/30/2025 1:16 PM EDT Height 177.8 cm (5' 10 ) 06/30/2025 1:16 PM EDT Body Mass Index 26.26 06/30/2025 1:16 PM EDT documented in this encounter Patient Instructions * Patient Instructions* Laith Oliveira PA-C - 06/30/2025 1:30 PM EDT Images from the original note were not included. Fall Prevention in the Home, Adult Falls can cause injuries and affect people of all ages. There are many simple things that you can do to make your home safe and to help prevent falls. If you need it, ask for help making these changes. What actions can I take to prevent falls? General information Use good lighting in all rooms. Make sure to: Replace any light bulbs that burn out. Turn on lights if it is dark and use night-lights. Keep items that you use often in [id number] places. Lower the shelves around your home if needed. Move furniture so that there are clear paths around it. Do not keep throw rugs or other things on the floor that can make you trip. If any of your floors are uneven, fix them. Add color or contrast paint or tape to clearly reema and help you see: Grab bars or handrails. First and last steps of staircases. Where the edge of each step is. If you use a ladder or stepladder: Make sure that it is fully opened. Do not climb a closed ladder. Make sure the sides of the ladder are locked in place. Have someone hold the ladder while you use it. Know where your pets are as you move through your home. What can I do in the bathroom? Keep the floor dry. Clean up any water that is on the floor right away. Remove soap buildup in the bathtub or shower. Buildup makes bathtubs and showers slippery. Use non-skid mats or decals on the floor of the bathtub or shower. Attach bath mats securely with double-sided, non-slip rug tape. If you need to sit down while you are in the shower, use a non-slip stool. Install grab bars by the toilet and in the bathtub and shower. Do not use towel bars as grab bars. What can I do in the bedroom? Make sure that you have a light by your bed that is easy to reach. Do not use any sheets or blankets on your bed that hang to the floor. Have a firm bench or chair with side arms that you can use for support when you get dressed. What can I do in the kitchen? Clean up any spills right away. If you need to reach something above you, use a sturdy step stool that has a grab bar. Keep electrical cables out of the way. Do not use floor kosovan or wax that makes floors slippery. What can I do with my stairs? Do not leave anything on the stairs. Make sure that you have a light switch at the top and the bottom of the stairs. Have them installedif you do not have them. Make sure that there are handrails on both sides of the stairs. Fix handrails that are broken or loose. Make sure that handrails are as long as the staircases. Install non-slip stair treads on all stairs in your home if they do not have carpet. Avoid having throw rugs at the top or bottom of stairs, or secure the rugs with carpet tape to prevent them from moving. Choose a carpet design that does not hide the edge of steps on the stairs. Make sure that carpet isfirmly attached to the stairs. Fix any carpet that is loose or worn. What can I do on the outside of my home? Use bright outdoor lighting. Repair the edges of walkways and driveways and fix any cracks. Clear paths of anything that can make you trip, such as tools or rocks. Add color or contrast paint or tape to clearly reema and help you see high doorway thresholds. Trim any bushes or trees on the main path into your home. Check that handrails are securely fastened and in good repair. Both sides of all steps should have handrails. Install guardrails along the edges of any raised decks or porches. Have leaves, snow, and ice cleared regularly. Use sand, salt, or ice melt on walkways during wintermonths if you live where there is ice and snow. In the garage, clean up any spills right away, including grease or oil spills. What other actions can I take? Review your medicines with your health care provider. Some medicines can make you confused or feel dizzy. This can increase your chance of falling. Wear closed-toe shoes that fit well and support your feet. Wear shoes that have rubber soles and low heels. Use a cane, walker, scooter, or crutches that help you move around if needed. Talk with your provider about other ways that you can decrease your risk of falls. This may includeseeing a physical therapist to learn to do exercises to improve movement and strength. Where to find more information Centers for Disease Control and Prevention, TIMBO: cdc.gov National [place] on Aging: nicolasa.nih.gov National [place] on Aging: nicolasa.nih.gov Contact a health care provider if: You are afraid of falling at home. You feel weak, drowsy, or dizzy at home. You fall at home. Get help right away if you: Lose consciousness or have trouble moving after a fall. Have a fall that causes a head injury. These symptoms may be an emergency. Get help right away. Call 911. Do not wait to see if the symptoms will go away. Do not drive yourself to the hospital. This information is not intended to replace advice given to you by your health care provider. Make sure you discuss any questions you have with your health care provider. Document Revised: 06/18/2023 Document Reviewed: 06/18/2023 [employer] Patient Education ?? 2023 [email or web address]. documented in this encounter Progress Notes * Laith Oliveira PA-C - 06/30/2025 1:30 PM EDT Images from the original note were not included. Cardiac Electrophysiology Outpatient Note [facility] Office Visit Loi Lux [id number] 05/13/2024 Primary Care Physician: Natalia Gleason MD Referred By: No ref. provider found Subjective Chief Complaint Patient presents with HFrEF (EF <20%) Problem List: Ischemic cardiomyopathy Echo, 04/12/2021: Septal motion is consistent with bundle branch block. Severely reduced systolic function with a visually estimated EF of less than 20%. No mass present. Right Ventricle: RV size andsystolic function is normal. No valvular vegetations or significant stenosis/regurgitation. No pericardial effusion. Echo, 04/29/2021: EF 20%. LVDF impaired relaxation. Saline test negative for right to left atrial level shunt. Stress PET, 05/05/2021: Rest EF 31% and stress EF 32%. LHC, 05/06/2021: LVEF 25%. Echo, 08/11/2021: EF 25-30%. LVSF moderately to severely decreased. No evidence of LV thrombus seenwith Lumason. Echo, 08/11/2021; EF 25-30%. No evidence of LV thrombus seen with Lumason. Echo, 01/16/2022; EF 25-30%. No evidence of LV apical thrombus. Echo, 03/31/2022: EF 35-40%. Trace MR. Mild TR Echocardiogram 01/07/2024 [facility] LVEF 50% with mild MR. TTE 12/2024 [facility] LVEF 47% Coronary artery disease Echo, 04/29/2021: EF 20%. LVDF impaired relaxation. Saline test negative for right to left atrial level shunt. Stress PET, 05/05/2021: Rest EF 31% and stress EF 32%. Abnormal baseline EKG w LBBB. Significant LVdilation with Lexiscan with a 3 times daily of 1.30. Large area of anteroseptal and apical ischemiaconsistent with severe ischemia and inferior area of ischemia which is mild in nature. Heavy calcification of coronary vessels and what appears to be an occluded RCA and distal left main disease. [address] segment horizontal depression with Lexiscan infusion which continues into the recovery. [facility], 05/06/2021: LVEF 25%. Flush occlusion of the LAD at origin. Mid RCA occlusion with excellent collateral flow to the LAD. Minor circumflex disease with excellent collateral flow to the LAD and RCA. CABG X3, 10/18/2021: (SVG to circumflex, SVG to PDA, and GAFFNEY to LAD), Dr. Azul. Nuclear perfusion scan 01/07/2024 [facility] showing a moderate to large severe inferoapical fixedpartially reversible defect. [facility] 03/2024 Dr. Hoff: 2/3 patent grafts with patent GAFFNEY to LAD, patent SVG to OM. OccludedSVG to RCA with collateral flow via the LAD through the LIN graft, LCx through the SVG graft and the chenega circumflex. Continue medical management with no intervention Hyperlipidemia LDL goal <70 History of acute CVAs Right posterior MCA territory infarct Right parietal lobe and occipital CVA, 2020 Left middle cerebral artery CVA, 04/29/21 Echo, 04/29/2021: Saline test negative for right to left atrial level shunt. Cardiac event monitor, 06/07/2021: Monitored for 7 days. SVT x2 - fastest 118 bpm. PAC burden 2%. PVCs burden 7%. Carotid artery disease, bilateral mid cervical right common carotid artery at KAVITHA origin treated with angioplasty/stent placement (XACT stents). Resulted in improved perfusion to right cerebral hemisphere and normal (TICI 3) flow. Advanced atherosclerotic plaque formation at the left carotid bifurcation, with subtotal occlusion ofLECA and extensive areas of ulceration at the carotid bifurcation and extending into the ICA origin. <50% stenosis of the left ICA origin. Carotid duplex, 02/22/2024: Right carotid stent imaging indicates mild (1-19%) restenosis. Mid stent velocity now back to 59 cm/s, similar to 01/16/22 study. ( Was 151 12/24/22). LICA demonstrates a less than 50% stenosis by velocity. Ratio suggests 50-69%. Maximal velocity now 158 cm/s, was 137 cm/son 12/24/22). HFrEF ICD implantation, 03/24/2022; successful implantation of [employer] biventricular ICD. Dr. Watters. Echo, 03/31/2022; EF 35-40%. Trace MR. Mild TR. 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 male who presents to my electrophysiology clinic for follow up ofischemic cardiomyopathy status post BiV ICD implant and paroxysmal atrial fibrillation. The patientwas last seen in our office self in April 2020 for. He follows with Dr. Hoff and a different air intelligence specialist in [place] for CAD s/p CABG x 3 in 2020 with recent angiogram outlined above, carotid disease s/p stenting, history of CVA and cardiac risk factor management. The patient is family think he will be in [place] more often then [place] and want to focus most of their treatment locally. Since we last saw the patient, he has had a recurrence of his cancer and started Keytruda. He has had no knowledge of any recurrence of tachypalpitations or ICD therapies. He denies any chest pain, heart racing, lower extremity edema, lightheadedness/dizziness. He does have some baselineshortness of breath that has remained unchanged. Past Medical History: Diagnosis Date Abnormal ECG 2020 AF (paroxysmal atrial fibrillation) 02/21/2022 Alcohol use 04/29/2021 Arrhythmia Not sure Asthma 2020 Shortness of breath Back pain Bilateral carotid artery stenosis, R > L 04/29/2021 Cataract of left eye CHF (congestive heart failure) 2020 Clotting disorder 2019 Blood thinners Congenital heart disease Coronary artery [...] decrease inability with fine motor like buttons -2020 and -2020 History of transfusion self donated, no reaction HTN (hypertension) 04/29/2021 Hyperlipidemia Myocardial infarction Unknown S/P percutaneous endoscopic gastrostomy (PEG) tube placement Stroke 2019 Wears dentures Wears glasses Past Surgical History: Procedure Laterality Date ANKLE [...] Cerebral Angiogram; Surgeon: Salvador Snow MD; [facility]; Service: Interventional Radiology; Laterality: Bilateral; LYMPH NODE DISSECTION Left 08/25/2020 left side of neck MANDIBLE SURGERY MUSCLE FLAP PEG TUBE INSERTION Family History Problem Relation Age of Onset [...] Paternal Grandmother No Known Problems Paternal Grandfather Social History Socioeconomic History Marital status: Tobacco Use Smoking status: Former Current packs/day: 0.00 Average packs/day: 0.5 packs/day for 15.0 years (7.5 ttl pk-yrs) Types: Cigarettes Start date: 10/29/1957 Quit date: 10/29/1971 Years since quittin.7 Passive exposure: Past Smokeless tobacco: Never Vaping Use Vaping status: Never Used Substance and Sexual Activity Alcohol use: Not Currently Alcohol/week: 2.0 standard drinks of alcohol Comment: Quit in 2020. Prior to drank approx 6 beers daily Drug use: Never Sexual activity: Not Currently Partners: Female control/protection: None Current Outpatient Medications: acetaminophen (TYLENOL) 325 MG [...] per G tube Daily., Disp: , Rfl: atorvastatin (LIPITOR) 80 MG tablet, Take 1 tablet by mouth Daily., Disp: , Rfl: bisacodyl (DULCOLAX) 10 MG suppository, Insert 1 suppository into the rectum Daily., Disp: , Rfl: bisoprolol (ZEBeta) 5 MG tablet, 0.5 tablets by Enteral route., Disp: , Rfl: carboxymethylcellulose sod, PF, 1 % gel eye gel, Inject 1 drop into the eye., Disp: , Rfl: Cetirizine HCl Childrens Alrgy 1 MG/ML solution solution, 10 mL by Enteral route., Disp: , Rfl: doxazosin (CARDURA) 1 MG tablet, 1 tablet by Enteral route., Disp: , Rfl: finasteride [...] directed by provider Daily., Disp: , Rfl: No current facility-administered medications for this visit. Facility-Administered Medications Ordered in Other Visits: Chlorhexidine Gluconate Cloth 2 % pads 1 application, 1 application , Topical, Q12H ASHLEYN, Vane Funk APRN Allergies: No Known Allergies Objective Vital Signs: Blood pressure 140/78, pulse 79, height 177.8 cm (70 ), weight 83 kg (183 lb), SpO2 97%. PHYSICAL EXAM General appearance: Awake, alert, cooperative. Signs of facial and neck surgical changes well-healed from prior oral cancer Head: Normocephalic, without obvious abnormality, atraumatic Lungs: Scattered rhonchi otherwise clear to ascultation bilaterally Heart: Regular rate and rhythm, no murmurs, no lower extremity swelling Skin: Skin color, turgor normal, no rashes or lesions Neurologic: Grossly normal Lab Results Component Value Date GLUCOSE 71 04/02/2024 CALCIUM 9.3 04/02/2024 NA 142 04/02/2024 K 4.4 04/02/2024 CO2 26.5 04/02/2024 CL 105 04/02/2024 BUN 16 04/02/2024 CREATININE 0.80 04/02/2024 EGFRIFAFRI 88 04/25/2023 EGFRIFNONA >60 02/07/2022 BCR 20.0 04/02/2024 ANIONGAP 10.5 04/02/2024 Lab Results Component Value Date WBC 7.83 06/24/2025 HGB 11.3 (L) 06/24/2025 HCT 33.1 (L) 06/24/2025 MCV 100 (H) 06/24/2025 PLT 252 06/24/2025 Lab Results Component Value Date INR 1.02 03/23/2022 INR 1.17 (H) 10/19/2021 INR 1.38 (H) 10/18/2021 PROTIME 13.3 03/23/2022 PROTIME 14.5 (H) 10/19/2021 PROTIME 16.5 (H) 10/18/2021 No results found for: TSH , W3AEJAM , T0GDRSL , THYROIDAB Results for orders placed during the hospital encounter of 03/31/22 Adult Transthoracic Echo Complete W/ Cont if Necessary Per Protocol 04/04/2022 10:34 AM Interpretation Summary ?? Estimated left ventricular EF = 35-40%. Improved from the previous study at which time his EF was 25 to 30%. ?? Trace mitral regurgitation ?? Mild tricuspid regurgitation Results for orders placed during the hospital encounter of 04/08/24 Cardiac Catheterization/Vascular Study 04/08/2024 10:21 AM Conclusion FINAL Impression 2/3 patent grafts with a patent GAFFNEY to the LAD, patent SVG to obtuse marginal. Occluded SVG to the RCA with collateral flow via the LAD through the LIN graft, the circumflex through the SVG graft and the chenega circumflex. Abnormal stress test secondary to collateral flow in the inferior myocardial distribution. RECOMMENDATIONS: Continued medical management of the patient's coronary disease. Indications: Abnormal myocardial perfusion scan in a patient with previous bypass grafting which revealed an area of inferior and apical ischemia. Access: Left radial artery Estimated blood loss: Less than 15 mL Procedures: Left heart catheterization. Selective coronary angiography. Selective LIN angiography Selective SVG angiography Procedure narrative: The patient was brought to the catheterization lab in a fasting condition. Access site was prepped and draped in standard sterile fashion. Lidocaine was injected and arterial access was obtained by percutaneous anterior wall puncture technique. A 6 Azerbaijani arterial sheath was placed in the left radial artery using a modified Seldinger technique. Selective coronary arteriography was performed usingthe Lydia technique with a 6 Azerbaijani 4 curved Lydia right catheter and a 6 Azerbaijani 3.5 curved Lydia left catheter. The right coronary catheter was used to engage the LIN graft. An LCB catheter was used to engage the vein graft to the circumflex as well as the vein graft to the right coronary. Nonionic contrast was used and was injected manually. Left heart pressure pull back revealed no gradient. No LV gram was performed. Contrast: 120 ml Hemodynamic Findings: LV pressure: 115/2/6 mmHg, on pull back no gradient was recorded across the aortic valve. Ao pressure: 115/55 mmHg Left ventriculography: Not performed Angiographic Findings: RCA: The right coronary artery is occluded in the midportion. LMCA: The left main coronary artery gives rise to LAD and circumflex vessels as well as a small ramus intermedius branch and contains an estimated 40% ostial stenosis. Ramus intermedius: The ramus intermedius is very small and contains no significant disease LAD: The LAD is occluded after the takeoff of a first diagonal branch. Circumflex: The circumflex coronary artery is nondominant for the posterior circulation and gives rise to a large first obtuse marginal branch 2 additional small obtuse marginal branches and a left atrial branch. Diffuse disease is present within the circumflex with a proximal 60 to 70% stenosis and an ostial stenosis of the large first obtuse marginal branch estimated at at least 70%. Competition for flow is seen in the first obtuse marginal branch. Collateral flow to the distal right coronaryis also noted. Graft angiography: GAFFNEY to the LAD: The GAFFNEY to the LAD is widely patent with no evidence of anastomotic stenosis. Good collateral flow to the distal right coronary circulation is seen. No significant disease is seen within the graft from the chenega circulation beyond the insertion of the graft. SVG to the RCA: The vein graft to the right coronary is occluded. SVG to the circumflex: The saphenous vein graft to the obtuse marginal branch is widely patent withexcellent retrograde flow into the remainder the circumflex. Collateral flow to the distal right coronary circulation is seen. I personally viewed and interpreted the patient's EKG/Telemetry/lab data Procedures Loi Lux reports that he quit smoking about 53 years ago. His smoking use included cigarettes. He started smoking about 67 years ago. He has a 7.5 pack-year smoking history. He has been exposed to tobacco smoke. He has never used smokeless tobacco. Advance Care Planning Advance Care Planning: ACP discussion was declined by the patient. Patient does not have an advancedirective, information provided. Assessment & Plan 1. Cardiomyopathy, ischemic/Chronic systolic (congestive) heart failure S/p biventricular ICD CAD and heart failure followed by Dr. Hoff and a air intelligence specialist in [facility] as the patient travels back and forth throughout the year. Most recent LHC with a graft occlusion and collateralization Last echo in [facility] with LVEF 47% NYHA class II shortness of breath 2. Presence of biventricular implantable cardioverter-defibrillator (ICD) The patient's [employer] biventricular ICD was checked in the office today and demonstrated normal functioning with 74% atrial pacing, <1% RV pacing, and 98% LV pacing, 8 years left on the battery, acceptable threshold impedance values and trivial arrhythmia. The device has better function with LV pacing alone without RV pacing. See scanned in device report for specifics 4. Paroxysmal atrial fibrillation post-op after CABG Single atrial tachycardia episode with no atrial fibrillation on device check At risk of recurrence in addition to history of CVA. Continue Eliquis for stroke prophylaxis. f patient's falls become harder to prevent, may want to discuss coming off of Eliquis. If that is the case, would want to make sure with gen cardiology appropriate DAPT therapy vs other regarding hisCAD, carotid disease and prior CVA. I would continue Eliquis + aspirin for now. Will reach out to Dr. Hoff's office to get him in for follow-up visit with her per patientrequest as he thinks he will be in [place] more than at [place] in the near future. Follow Up: Return in about 1 year (around 06/30/2026). Thank you for allowing me to participate in the care of your patient. Please do not hesitate to contact me with additional questions or concerns. Latih Oliveira PA-C Cardiac Electrophysiology [facility] documented in this encounter Plan of Treatment Upcoming Encounters Date Type Department Care Team (Late st Contact Info) Description 08/12/2025 2:30 PM EDT Office Visit [facility] [address] [facility] [address] [place] [phone] Francy Mclean PA-C [address] [facility] [address] [place] [address] 06/02/2026 11:00 AM EDT Appointment [facility] [address] [facility] [address] [place] [phone] 06/02/2026 1:00 PM EDT Office Visit [facility] [address] [facility] [address] [place] [phone] Salvador Snow MD [address] [facility] [address] [place] [address] 07/13/2026 1:15 PM EDT Office Visit [facility] [address] [facility] [address] [place] [phone] Fortunato Watters MD [address] [facility] [address] [place] [id number] Scheduled Orders Name Type Priority Associated Diagnoses Orde r Schedule Cardiology Scan Cardiac Services Ord ered: 06/30/2025 documented as of this encounter Visit Diagnoses Diagnosis Cardiomyopathy, ischemic- Primary Other specified forms of chronic ischemic heart disease Presence of biventricular implantable cardioverter-defibrillator (ICD) Paroxysmal atrial fibrillation post-op after CABG Atrial fibrillation Essential hypertension Unspecified essential hypertension documented in this encounter Care Teams Acid Dumper Relationship Specialty Start Date End Date Natalia Gleason MD PCP - General 06/28/25 documented as of this encounter
--- OUTSIDE RECORDS SUMMARY | 2025-07-13 09:30 | XMS_ITS | Encounter Summary ---
Author Organization [facility] Address [address] [place] [address] Care Team Providers Care Cuff Matcher Name Role Phone Tapan Hill MD Primary Care Provid er Inna Chowdary MD [facility] [phone] Reason for Visit * Reason Comments Nurse Visit Encounter Details Date Type Department Care Team (Late st Contact Info) Description 07/13/2025 9:30 AM EDT Clinical Support [facility] H[facility]ology[facility] Cellular Therapy Program [address] [place] [address] [place] [address] Social History Tobacco Use Types Packs/Day Years Used Date Smoking Tobacco: Former Cigarettes 0.5 15 0 10/29/1957 - 1972 Passive Smoke Exposure: Past Smokeless Tobacco: Never Alcohol Use Standard Drinks/Week Comments Not Currently 0 (1 standard drink = 0.6 oz pur e alcohol) PHQ-2 Answer Date Recorded Patient Health Questionnaire-2 Score 1 07/13/2025 PHQ-9 Answer Date Recorded Patient Health Questionnaire-9 Score 5 07/13/2025 Sex and Gender Information Value Date Recorded [...] Mejias mma K documented in this encounter Plan of Treatment Upcoming Encounters Date Type Department Care Team (Late st Contact Info) Description 08/06/2025 9:30 AM EDT Clinical Support [facility] [address] [address] 08/06/2025 9:50 AM EDT Office Visit [facility] [address] [address] Crystal Viera MD [address] [facility] [address] [place] [address] 08/06/2025 11:30 AM EDT Appointment [facility] Infusion [address] [place] [address] 09/14/2025 9:00 AM EST Appointment [facility] Radiology [address] [place] [address] 09/14/2025 10:00 AM EST Office Visit [facility] [address] [address] Yves Cantor MD [address] [facility] [address] [place] [address] 09/14/2025 11:00 AM EST Appointment [facility] Radiation [address] [facility]. [id number] [place] [address] Inna Chowdary MD 800 [facility] [address] [place] [phone] 09/17/2025 10:30 AM EST Office Visit [facility] [address] [facility] [place] [address] Crystal Viera MD [address] [facility] [address] [place] [address] 09/29/2025 2:20 PM EST [facility] Visit [facility] [address] [place] [address] Dio Burger MD 800 [place], [place] [id number] documented as of this encounter Visit Diagnoses Not on filedocumented in this encounter Additional Health Concerns Assessment Noted Time PHQ-9 Depression Total Score: 5 07/13/20 10:00 AM EDT A fall risk assessment has been complete d for the patient 06/24/2025 12:56 PM EDT A Body Mass Index follow-up plan has been documented for the patient 06/24/2025 2:03 PM EDT documented as of this encounter Care Teams Cuff Matcher Relationship Specialty Start Date End Date Tapan Hill MD [address] [place] [address] PCP - General 03/11/21 Inna Chowdary MD [address] [facility] [address] [place] [address] Consulting Physician Radiation Therapy 06/15/25 documented as of this encounter
--- OUTSIDE RECORDS SUMMARY | 2025-07-13 10:00 | XMS_ITS | Encounter Summary ---
Author Organization Address [address] [place] [address] Care Team Providers Care Under Water Assistant Name Role Phone Tapan Hill MD Primary Care Provid er Inna Chowdary MD [facility] [phone] Reason for Visit * Reason Comments Consult Med Management * Consultation (Routine) - Closed Specialty Diagnoses / Procedures Referred By Jw de la cruz Referred To Contact Palliative Medicine / Blood and Marrow Transplant Diagnoses Cancer of oral cavity Inna Chowdary MD [address] [address] Phone: tel: fax: [facility] H[facility] Cellular Therapy [facility] [address] [place] [address] [place] [address] Phone: tel: fax: Referral ID Status Reason Start Date Expiration Date V isits Requested Visits Authorized [id number] Closed Consult and Treat 06/17/2025 12/17/2026 1 1 Encounter Details Date Type Department Care Team ([facility] st Contact Info) Description 07/13/2025 10:00 AM EDT Office Visit [facility] Cellular Therapy Program [address] [place] [address] Kayley Hastings MD [address] [place] [address] Palliative care by specialist (Primary Dx); Complex care coordination Social History Tobacco Use Types Packs/Day Years [...] Sign Reading Time Taken Comments Blood Pressure 103/67 07/13/2025 9:25 AM EDT Pulse 97 07/13/2025 9:25 AM EDT Temperature 36.3 C (97.3 F) 07/13/2025 9:25 AM EDT Respiratory Rate 18 07/13/2025 9:25 AM EDT Oxygen Saturation 97% 07/13/2025 9:25 AM EDT Inhaled Oxygen Concentration - - Weight 83.3 kg (183 lb 10.3 oz) 07/13/2025 9:25 AM EDT Height 177.8 cm (5' 10 ) 07/13/2025 9:25 AM EDT Body Mass Index 26.35 07/13/2025 9:25 AM EDT documented in this encounter Functional [...] 04/15/2021 1:20 PM EDT Adonay Mejias * Over the past 2 weeks, how often have you been bothered by any of the following problems? Question Answer Date of Assessment Author Little interest or pleasure in doing things Several days 07/13/2025 10:00 AM BENJAMINT Any uSggs RN Feeling down, depressed, or hopeless Not at all 07/13/2025 10:00 AM Any Holder RN Patient Health Questionnaire-2 Score 1 07/13/2025 10:00 AM EDT Patti Suggs RN * Question Answer Date of Assessment Author Trouble falling or staying asleep, or sleeping too much More than half the days 07/13/2025 10:00 AM Any Holder RN Feeling tired or having little energy More than half the days 07/13/2025 10:00 AM Any Holder RN Poor appetite or overeating Not at all 07/13/2025 10:00 AM Any Holder RN Feeling bad about yourself - or that you are a failure or have let yourself or your family down Not at all 07/13/2025 10:00 AM Any Holder RN Trouble concentrating on things, such as reading the newspaper or watching television Not at all 07/13/2025 10:00 AM Any Holder RN Moving or speaking so slowly that other people could have noticed? Or the opposite - being so fidgety or restless that you have been moving around a lot more than usual. Not at all 07/13/2025 10:00 AM Any Holder RN Thoughts that you would be better off or hurting yourself in some way Not at all 07/13/2025 10:00 AM Any Holder RN Patient Health Questionnaire-9 Score 5 07/13/2025 10:00 AM Any Holder RN documented as of this encounter Mental Status * Because of a physical, mental, or emotional condition, do you have serious difficulty concentrating, remembering, or making decisions? (5 years old or older) Answer Entry Date Author No 04/15/2021 1:20 PM EDT Adonay Mejias documented in this encounter Miscellaneous Notes * Clinician Note - Any Suggs, RN - 07/13/2025 10:00 AM EDT Education was presented on palliative care services, contact information, which medications and symptoms to contact our office regarding, medication counts, and drug screen protocols used in our clinic. Patient and visitors were given time to ask questions and voiced understanding on all topics. Please Note: [employer] Messages are reviewed between the hours of 8:00am - 4:00pm Sunday thru Sunday.[employer] messages are not monitored outside of normal business hours. If you have not received a response from our clinic staff within 24-48 hours, please call us at [phone] and select option #1 and then option #4 to reach the palliative team. If this is an emergency, please go directly to the e mergency room or call 911. When calling about refills: Please call your pharmacy first, to confirm if there are refills available or future prescriptions waiting to be processed on the day the refill is due. If you have calledyour pharmacy and confirmed there are no refills or prescriptions available, please provide us withthe medication name, dose, and frequency you are taking them, along with how many pills you have rem aining. Thank you. * Clinician Note - Beau Samano - 07/13/2025 10:00 AM EDT I visited Jass, his (Ijeoma), and his daughter (Abbi) alongside Dr. Hastings to introduce gun repair clerk support and establish rapport. I listened supportively as Jass and his family shared his health journey and spoke about what theyhave found helpful during this time. Jass and his family engaged in conversation related to his plan of care and expressed appreciation for support. I will remain available to follow up as needed. * Progress Notes - Kayley Hastings MD - 07/13/2025 10:00 AM EDT Palliative Cancer Care Clinic Note Visit Type: Patient was seen in person at the clinic location. Verbal consent was obtained to use ambient listening technology to assist in the documentation of the encounter: yes Referring provider: Inna Chowdary MD Referring team: Radiation Oncology Reason for visit: Symptoms management Chief Complaint Patient presents with Consult Med Management Primary Oncologist: Crystal Viera MD Primary care provider: Tapan Hill MD (Inactive) PC production team leader(s) at this encounter: Physician, Woven Paper Hat Mender, and Palliative Care Nurse Loi Lux is a 85 y.o. 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 Currently on Keytruda Other illnesses impacting health and symptom burden: ischemic cardiomyopathy s/p 3v CABG, EF 50% with atrial fibrillation, s/p BiV ICD, bilateral carotid stenosis R>L, h/o CVA, S/P rectus abdominis free flap & iliac crest bone graft (data deficit), h/o displaced mesencephalus fx of left leg and displaced fx of medial malleolus of left tibia s/p left ORIF 03/2025 Pertinent psychosocial - lives with [place]jeoma [place] 35 years [place] and [place]. Support also fromdatyler Go Subjective HISTORY OF PRESENT ILLNESS: EHR reviewed. KRISHNA - Oncology last prescribed HCD/APAP 7.2/325mg 4/day on 07/07/25 for 30 days. Oncology last prescribed oxycodone 10mg #100 tabs on 06/15/25. ROS / ESAS: Pain Score: 5 Tiredness Score: 5 Nausea Score: 0 Depression Score: 0 Anxiety Score: 3 Drowsiness Score: 5 Appetite Score: 0 Wellbeing Score: 3 Dyspnea Score: 0 Review of Systems - Oncology Depression Screen: Over the past 2 weeks, how often have you been bothered by any of the following problems? Little interest or pleasure in doing things: Several days Feeling down, depressed, or hopeless: Not at all Patient Health Questionnaire-2 Score: 1 Over the past 2 weeks, how often have you been bothered by any of the following problems? Trouble falling or staying asleep, or sleeping too much: More than half the days Feeling tired or having little energy: More than half the days Poor appetite or overeating: Not at all Feeling bad about yourself - or that you are a failure or have let yourself or your family down: Not at all Trouble concentrating on things, such as reading the newspaper or watching television: Not at all Moving or speaking so slowly that other people could have noticed? Or the opposite - being so fidgety or restless that you have been moving around a lot more than usual.: Not at all Thoughts that you would be better off or hurting yourself in some way: Not at all Patient Health Questionnaire-9 Score: 5 Depression Screening Follow Up: Condition stable. No follow-up needed. History of Present Illness The patient is an 85-year-old male who presents to establish palliative care. He is under the care of Dr. Viera for head and neck cancer and has been referred here by Dr. Chowdary, a radiation oncologist. His primary care is in [place], [place]. He desires home physical therapy and a pump for Jevity as he cannot consume anything orally due to aspiration. He could also useassistance with transportation. His cancer care is stable with Keytruda, and he is satisfied with it. He spends [place] in [place] and [place] in [place], with most of his healthcare being provided in [place]. He has met with a psycho- gathering worker once. He is currently out of Jevity anduses Boost as a substitute. He experiences challenges when using mouthwash due to thick mucus but finds pain relief from the mouthwash. He is concerned about the effectiveness of Keytruda and overallabout cancer progression. He does not routinely discuss his health concerns with family or friends,as he does not usually talk about his worries or emotions at baseline. He is half glass full and optimistic as a person. He is awaiting home health PT and OT, ordered by his orthopedist and primarycare. His feeding tube was placed at [facility] during one of his surgeries and has been replaced several times. He still experiences significant leakage from the tube. They desire having an establishedGI specialist to oversee the care of G-tube. He has been on hydrocodone for about 4 years for back pain and jaw pain, taking 4 tablets daily. Hewas prescribed oxycodone but has not taken it as he finds relief with hydrocodone. He was scheduledfor RFA ablation for chronic back pain, as injections became less helpful, but was advised to strengthen his core first. He broke his ankle and spent a couple of months in a rehab hospital, which help ed his core. He is now able to walk without a walker, although limited. He is seeing an orthopedistthis afternoon. He has Salonpas and Voltaren at home that he has not used. He takes MiraLAX daily for constipation, which he administers through his feeding tube. PAST SURGICAL HISTORY: He has a history of heart disease and has undergone bypass surgery. He had a low ejection fraction before the bypass, but it is now normal. He had surgery on his carotids, which went well. Objective PHYSICAL EXAM: Blood pressure 103/67, pulse 97, temperature 36.3 ??C (97.3 ??F), temperature source Temporal, resp. rate 18, height 1.778 m (5' 10 ), weight 83.3 kg (183 lb 10.3 oz), SpO2 97%. Physical Exam Vitals reviewed. Constitutional: General: He is not in acute distress. Appearance: Normal appearance. He is not ill-appearing, toxic-appearing or diaphoretic. HENT: Mouth/Throat: Comments: Noted drooling and mucus Eyes: General: No scleral icterus. Pulmonary: Effort: Pulmonary effort is normal. No respiratory distress. Skin: Coloration: Skin is not jaundiced or pale. Neurological: General: No focal deficit present. Mental Status: He is alert and oriented to person, place, and time. Psychiatric: Mood and Affect: Mood normal. Behavior: Behavior normal. Thought Content: Thought content normal. Judgment: Judgment normal. Results Palliative care actions: Advance care planning discussed Psychosocial support/counseling provided Assessment & Plan 1. Head and neck cancer. He is under the care of Dr. Viera for head and neck cancer. He is currently on Keytruda. He was informed about the availability of an inpatient palliative care team at for additional support during hospital stays. Ijeoma is healthcare surrogate by [employer] law and his preferred first surrogate. His two daughters are supportive of them. He desires detailed communication and feels he has been gettingthat. He makes decisions as they come up and has made many complex decisions about his care (carotid surgery, bypass surgery). He is agreeable to all interventions. 2. Mechanical chronic back pain. Significant back pain occurs, especially when using mouthwash due to thick mucus. The current regimen of hydrocodone 4 times daily is overall effective. Klqt-fry-sqiqyso topicals such as Salonpas patches and diclofenac gel (Voltaren) were recommended for back pain management. Apply these topicals as part of the routine, especially prior to when he will be most active. 3. Constipation. MiraLAX is taken daily to manage constipation, which is effective and does not cause issues with the feeding tube. 4. Anxiety. Anxiety rated as 3 out of 10, primarily related to concerns about the effectiveness of Keytruda andoverall health. Continue discussing feelings with family members as per his usual comfort level soumya hopeful and positive. 5. Feeding tube management. Experiencing issues with the feeding tube, including leakage and difficulty obtaining Jevity. Follow up with the gastroenterology referral provided by the primary care doctor. The palliative care team will coordinate with psych onc SW and the dietary team to address tube feeding issues. FOLLOW UP - PRN basis only is preferred by patient and family as there are no unmet palliative needs at this time ASSESSMENT: Activity:?ambulating without assist device for short distances, otherwise with rolling walker and transport chair for long distances ECO Palliative Performance Status:?60% Prognosis: Multi-morbidities, at risk for decline Pertinent Psychosocial/ACP: Assume Full Code, desires all options presented to him including surgeries PROBLEM LIST: 1. Palliative care by specialist 2. Complex care coordination Medical Complexity Decision Making: Level 4 Pt with multi-morbidities with progression or symptom burden or side effects of treatment requiringpalliative care and Pt has advanced cancer that poses a threat to life or bodily function requiringpalliative care KRISHNA and Declan reviewed prior to prescribing Schedule II, III, and IV medications as required by law Naloxone education reiterated and confirmed that patient has units in case of emergency with prescribed opioids in the home. Medication management policies and safe medication disposal education have been provided. Patient instructed that if there are concerns about their health condition, they are to call their primary oncologist, or go to urgent care or ED.? Recommend primary care or oncology routine screening and management for mcfp opioid side effects of osteoporosis, hypogonadism, sleep apnea, and depression. Chart Review Summary: Allergies[1] Current Medications[2] Past Medical History[3] Family History[4] Social History Social History Narrative Not on file Kayley Hastings MD Palliative Cancer Care Clinic [place] or Circular messages preferred [1] No Known Allergies [2] Current Outpatient Medications Medication Sig Dispense Refill apixaban (Eliquis) 5 MG tablet Take 1 tablet by mouth 2 times a day. 180 tablet 3 ASPIRIN 81 PO Take 1 tablet by mouth 1 (one) time each day. bisoprolol (Zebeta) 5 MG tablet Take 0.5 tablets (2.5 mg) by mouth 1 (one) time each day. carboxymethylcellulose sod PF (Refresh Celluvisc) 1 % ophthalmic solution dropperette Inject 1 dropinto the eye 3 times a day as needed. Cetirizine HCl Childrens Alrgy 1 MG/ML syrup 10 mL by Enteral route. diphenhydrAMINE (Benadryl) 12.5 MG/5ML liquid Mix 30 mL with water and lidocaine as directed 473 mL3 doxazosin (Cardura) 1 MG tablet 1 tablet by Enteral route. famotidine (Pepcid) 20 MG tablet Take 1 tablet by mouth 2 times a day. Feeding Supplies [facility] Please send pole for gravity feeds, along with months supply of gravity bags and 5 rolls of blue tape 1 each 5 finasteride (Proscar) 5 MG tablet 1 tablet by Enteral route. HYDROcodone-acetaminophen (Hallett) 7.5-325 MG tablet 1 tablet by Per G Tube route every 6 hours as needed for severe pain. 120 tablet 0 hydrOXYzine HCl (Atarax) 25 MG tablet Take 2 tablets (50 mg) by mouth. Takes 2 at bedtime lidocaine (Xylocaine) 2 % solution Take 45 mL by mouth 4 times a day as needed for mild pain. Mix 45 mL with water and benedryl as directed 200 mL 3 magic mouthwash (lidocaine, diphenhydramine, Maalox 1:1:1) Swish and spit 10 mL every 4 hours as needed for mucositis or stomatitis. 1200 mL 3 giffjrhakxqv-iafr-pihdoxcq-folic acid (Centrum Silver, geriatric,) tablet Take 1 tablet by mouth 1 (one) time each day. naloxone (Narcan) 4 mg/0.1 mL nasal spray 1. Give 1 spray in nostril for no/slow breathing or cannot wake after opioid use 2. Call 911 3. Repeat in other nostril if symptoms continue 1 each 0 ondansetron (Zofran) 4 MG tablet Take 1 tablet (4 mg) by mouth twice a day. ondansetron ODT (Zofran-ODT) 4 MG disintegrating tablet Dissolve 1 tablet on the tongue every 8 hours as needed for nausea or vomiting. 90 tablet 3 polyethylene glycol (Miralax) 17 GM/SCOOP powder Take 17 g by mouth. acetaminophen (Tylenol) 325 MG tablet Take 2 tablets by mouth every 6 hours as needed. (Patient nottaking: Reported on 07/13/2025) aluminum & magnesium hydroxide-simethicone (Mylanta) 200-200-20 MG/5ML oral suspension Take 30 mL by mouth every 6 (six) hours if needed for indigestion or heartburn. (Patient not taking: Reported on 07/13/2025) atorvastatin (Lipitor) 80 MG tablet (Patient not taking: Reported on 07/13/2025) FIBER PO 480 mL by Enteral route. (Patient not taking: Reported on 07/13/2025) FIBER PO 240 mL by Enteral route. (Patient not taking: Reported on 07/13/2025) oxyCODONE (Roxicodone) 10 MG immediate release tablet Take 1 tablet by mouth every 4 hours as needed for severe pain (g89.3). (Patient not taking: Reported on 07/13/2025) 100 tablet 0 oxyCODONE (Roxicodone) 5 MG immediate release tablet 2 tablets by Per G Tube route every 4 hours asneeded for moderate pain for up to 120 doses. (Patient not taking: Reported on 07/13/2025) 120 tablet 0 prochlorperazine (Compazine) 10 MG tablet Take 1 tablet by mouth every 6 hours as needed for nauseaor vomiting. (Patient not taking: Reported on 07/13/2025) 30 tablet 5 Sennosides 8.6 MG capsule Take by mouth. (Patient not taking: Reported on 07/13/2025) simethicone (Mylicon) 80 MG chewable tablet Chew 1 tablet every 6 hours as needed. (Patient not taking: Reported on 07/13/2025) No current facility-administered medications for this visit. [3] Past Medical History: Diagnosis Date Anemia 2020 Cancer (CMS/HCC) 1984 Cancer of oral cavity (CMS/HCC) 02/07/2022 Coronary artery disease 2020 COVID-19 09/2023 Dysplastic colon polyp 03/19/2016 Description: sigmoid, pedunculated, removed completely in [place] 01/2016 Description: sigmoid, pedunculated, removed completely in [place] 01/2016 Essential (primary) hypertension Hypertension GERD (gastroesophageal [...] Skin cancer 1980 Stroke (CMS/HCC) Stroke (CMS/HCC) 2020 [4] Family History Problem Relation Name Age of Onset Cardiac disorder Other Hypertension Other Heart disease Mother Heart disease Father Macular degeneration Sister Cancer Sister Cataracts Sister Heart disease Sister Cancer Brother Cataracts Brother Heart disease Brother documented in this encounter Plan of Treatment Upcoming Encounters Date Type Department Care Team (Late st Contact Info) Description 08/06/2025 9:30 AM EDT Clinical Support [facility] [address] [place] [address] 08/06/2025 9:50 AM EDT Office Visit [facility] [address] [place] [address] Crystal Viera MD [address] [facility] [address] [place] [address] 08/06/2025 11:30 AM EDT Appointment [facility] Infusion [address] [place] [phone] 09/14/2025 9:00 AM EST Appointment [facility] Radiology [address] [place] [phone] 09/14/2025 10:00 AM EST Office Visit [facility] [address] [place] [phone] Yves Cantor MD [address] [facility] [address] [place] [phone] 09/14/2025 11:00 AM EST Appointment [facility] Radiation [id number] [place] [phone] Inna Chowdary MD [address] [place] [address] [address] [place] [phone] 09/17/2025 10:30 AM EST Office Visit [facility] [address] [place] [facility] [address] [place] [phone] Crystal Viera MD [address] [facility] [address] [place] [phone] 09/29/2025 2:20 PM EST Office Visit [facility] [address] [place] [phone] Dio Burger MD [address] [place] [address] documented as of this encounter Visit Diagnoses Diagnosis Palliative care by specialist- Primary Complex care coordination documented in this encounter Additional Health Concerns Assessment Noted Time PHQ-9 Depression Total Score: 5 07/13/20 25 10:00 AM EDT A fall risk assessment has been complete d for the patient 06/24/2025 12:56 PM EDT A Body Mass Index follow-up plan has been documented for the patient 06/24/2025 2:03 PM EDT documented as of this encounter Care Teams Under Water Assistant Relationship Specialty Start Date End Date Tapan Hill MD [address] [place] [address] PCP - General 03/11/21 Inna Chowdary MD [address] [place] [phone] Consulting Physician Radiation Therapy 06/15/25 documented as of this encounter
[2025-07-29] VITALS (9 sets, daily range): BP systolic 99–143; BP diastolic 53–72; PULSE 60–76; RESP 18; TEMP 35.8–36.3; O2SAT 91–100; BMI 25.1
--- NOTE | 2025-07-29 12:51 | CT_ITS ---
FINAL REPORT TECHNIQUE: After the administration of intravenous contrast, axial images were obtained through the abdomen and pelvis by computed tomography. The study was performed with techniques to keep radiation dose as low as reasonably achievable, (ALARA). Individual dose reduction techniques using automated exposure control or adjustment of mA and/or kV according to the patient's size were employed. CLINICAL HISTORY: Abdominal pain beneath G tube site FINDINGS: Abdomen: There is fibrosis at the lung bases. There is mild fatty infiltration of the liver. There is a well-circumscribed low-attenuation structure in the right lobe of the liver measuring up to 3.5 cm in greatest dimension consistent with a benign cyst. The gallbladder is present. The spleen, pancreas, and adrenals are unremarkable. Benign-appearing cysts in the left kidney measure up to 3.1 cm. There is a gastrostomy feeding tube present. Tube appears to reside within the gastric lumen. The anterior wall of the stomach is affixed to the anterior abdominal wall. There is no surrounding inflammatory reaction. The aorta is normal in caliber. There is no free fluid or adenopathy. Pelvis: The rectum is moderately distended. Measuring up to 7.4 cm. The appendix is normal. The urinary bladder is unremarkable. There is no free fluid or adenopathy. IMPRESSION: No acute intra-abdominal process. Reviewed, Interpreted and Dictated by Tawanda Pritchett MD Transcribed by Kaylene Flowers Authenticated and [facility]
--- NOTE | 2025-07-29 12:55 | ED_ITS ---
Discharge Plan Disposition Patient Disposition: Home, Self-Care Condition: Good Referrals Follow up/Referrals: Natalia Gleason MD [Primary Care Provider, Medical] - See instructions Activity Restrictions/Add. Instructions Additional Instructions/Restrictions: Please follow up with GI as we discussed. If you have any new or worsening symptoms please return to the ER for further evaluation. Clinical Impressions Clinical Impression: Abdominal pain Qualifiers: Abdominal location: unspecified location Qualified Code(s): R10.9 - Unspecified abdominal pain Instructions Patient Instructions: DI for Acute Abdominal Pain Print Language Print Language: Venezuelan Discharge ED Provider: Aron Crowley Adult HPI General Chief complaint: Abdominal Pain Stated complaint: Pain in stomach Time Seen by Provider: 07/29/25 12:29 Mode of Arrival: Ambulatory Source of Information: Patient and Spouse Description of Symptoms (Recalled from ER Triage Doc. by RN): PATIENT PRESENTS TO ED FOR ABDOMINAL PAIN SURROUNDING G-TUBE SITE THAT BEGAN YESTERDAY. DENIES N/V/D. HAD HIS G-TUBE REPLACED APPROX. 1 MONTH AGO AT . STARTS ORAL CANCER TREATMENT AT [facility]. 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 Patient states the last month his G-tube got inadvertently removed and he went to the [facility] where they replaced it in the emergency department. Patient's describes them performing a port PEG contrasted x- ray to confirm placement following placement of the G-tube. He states that over the course of the last several days he has begun experiencing pain around the G- tube site that is worse with movement. He has had no nausea and vomiting. No diarrhea. No constipation. No hematochezia or melena. No hematemesis. No fevers or chills. He denies chest pain and shortness of breath. Related Data Allergies Allergy/AdvReac Type Severity Reaction Status Date / Time No Known Allergies Allergy Verified 07/29/25 13:09 [facility] Disclaimer: The information contained in this section may have been updated after the patient was seen, as this information can be updated by other users. Social History Smoking Status: Former smoker alcohol intake: never current occupational status: previously employed Travel in the last 8 weeks?: None ROS Obtained: Yes Systems reviewed as appropriate & no additional complaints except as documented Physical Exam General General appearance: other (See MDM) Respiratory Respiratory exam: Present other (See MDM) Cardiovascular Cardiovascular exam: Present other (See MDM) Neurological Exam Neurological exam: Present other (See MDM) Medical Decision Making Medical Records Medical records reviewed: Yes I reviewed the patient's medical records. Screening: Per USPSTF and CDC recommendations, given the prevalence of disease in our region, it is our hospital?s policy to screen for HIV and viral Hepatitis for all patients aged 18 and over and those with ongoing risk factors. Robin Inquiry Pt receiving controlled substance: No Robin was queried for this patient: No Vital Signs: 07/29/25 12:27 07/29/25 12:27 07/29/25 12:31 Temperature 96.5 F L 96.5 F L Temperature Source Temporal Artery Scan Temporal Artery Scan Pulse Rate 70 73 Pulse Rate [Right] 70 Respiratory Rate 18 18 Blood Pressure 138/66 120/63 Blood Pressure [Left Arm] 138/66 Blood Pressure Mean 82 Blood Pressure Mean [Left Arm] 90 02 Sat by Pulse Oximetry 100 100 95 07/29/25 12:36 07/29/25 13:00 07/29/25 13:30 Temperature Temperature Source Pulse Rate 62 76 63 Pulse Rate [Right] Respiratory Rate 18 Blood Pressure 106/61 L 116/53 L 106/61 L Blood Pressure [Left Arm] Blood Pressure Mean 74 76 Blood Pressure Mean [Left Arm] 02 Sat by Pulse Oximetry 99 91 L 98 Lab Data Lab Results 07/29/25 13:17: WBC 6.1, RBC 3.66 L, Hgb 12.0 L, Hct 36.2 L, MCV 98.9 H, MCH 32.8 H, MCHC 33.1, RDW 12.6, Plt Count 197, MPV 9.7, Neut % (Auto) 62.7, Lymph % (Auto) 16.7, [place] % (Auto) 11.3 H, Eos % (Auto) 8.0, Baso % (Auto) 0.8, Neut # (Auto) 3.8, Lymph # (Auto) 1.0, [place] # (Auto) 0.7, Eos # (Auto) 0.5 H, Baso # (Auto) 0.1, Sodium 136, Potassium 4.6, Chloride 100, Carbon Dioxide 29, Anion Gap 11.6, BUN 19, Creatinine 0.60 L, Estimated Creat Clear 61, Estimated GFR 128, Est GFR ( Amer) 155, Glucose 150 H, Lactate 1.0, Calcium 9.1, Total Bilirubin 0.8, AST 47, ALT 40, Alkaline Phosphatase 129 H, Total Protein 6.7, Albumin 4.0, Globulin 2.7, Albumin/Globulin Ratio 1.5, Lipase 46 07/29/25 13:17 07/29/25 13:17 Orders (Tests/Meds): ED MEDICATIONS Discontinued Medications Generic Name Dose Route Start Last Admin Trade Name Freq PRN Reason Stop Dose Admin Iopamidol 75 ml 07/29/25 13:56 07/29/25 13:57 Iopamidol-370 (76%);100ml Bottle IV 07/29/25 13:57 75 ml ONCE ONE Administration Morphine Sulfate 4 mg 07/29/25 14:19 07/29/25 14:32 Morphine 4mg/Ml Syringe IV 07/29/25 14:20 4 mg ONCE ONE Administration Ondansetron HCl 4 mg 07/29/25 14:19 07/29/25 14:30 Ondansetron 4mg/2ml Vial IV 07/29/25 14:20 4 mg ONCE ONE Administration Sodium Chloride 10 ml 07/29/25 13:56 07/29/25 13:57 Sodium Chloride 0.9% 10ml Syr (Rad Only) IV 07/29/25 13:57 10 ml ONCE ONE Administration ORDERS Category Date Time Status CT abdomen pelvis w con Stat Cat Scan 07/29/25 12:51 Completed CBC w/Auto Diff [Complete Blood Count Auto Diff] Stat Lab 07/29/25 13:17 Completed CMP [Comprehensive Metabolic Panel] Stat Lab 07/29/25 13:17 Completed Lactic Acid Stat Lab 07/29/25 13:17 Completed Lipase Stat Lab 07/29/25 13:17 Completed Medical Decision Narrative: In summary, this is an 85-year-old male patient who is presenting to the emergency department today for pain around his G-tube site that is worse with movement. He is having no other associated gastrointestinal or urinary symptoms. No fever or infectious symptoms. Patient's comorbidities include squamous of carcinoma of the tongue status postresection and flap reconstruction, hypertension, hyperlipidemia, and coronary artery disease on aspirin and Eliquis. On initial evaluation of the patient they were resting comfortably in no acute distress and nontoxic in appearance. They are hemodynamically stable, saturating well room air, and are neurologically intact. On physical examination the patient is dysarthric secondary to the flap reconstruction in his mouth. He is appropriately alert and oriented with a GCS of 15. His heart and lungs are clear to auscultation bilaterally. His G-tube site appears well matured with no surrounding abnormalities. He has tenderness of his abdomen around the G-tube site. The remainder of his abdomen is soft and nontender to palpation. Differential diagnosis includes G-tube displacement, enterocutaneous fistula, abdominal wall abscess, intra-abdominal abscess, pneumoperitoneum, among other intra-abdominal catastrophes. Initial workup to include a CT scan of the abdomen and pelvis as well as hematologic labs. Initial interventions included 4 mg of morphine and 4 mg of Zofran for pain. Labs were personally interpreted by me and demonstrate no evidence of leukocytosis, no actionable anemia, no electrolyte derangements or evidence of acute kidney injury. Lipase is normal. Lactate is normal. CT scan of the abdomen and pelvis personally turbid by me and demonstrates a G- tube that is appropriately positioned within the gastric lumen. Official radiology read is in agreement and states that there is no acute abnormality on the scan. Specifically there is no abscesses noted to the abdominal wall, in the abdomen, no evidence of pneumoperitoneum, or evidence of infection. On repeat assessment the patient he is resting comfortably and is in no acute distress. His pain is controlled. The exact etiology of patient's pain is unclear. However I am reassured that it is not due to any sort of infection or malplacement of the G-tube. They have follow-up coming up with gastroenterology at and I have asked them to keep this appointment for further evaluation over this pain. At this time all questions have and answered and all parties are agreeable with the decision to discharge home Critical Care Critical Care Time Critical Care Time: No
--- OUTSIDE RECORDS SUMMARY | 2025-07-29 13:00 | XMS_ITS | Encounter Summary ---
Author Organization [facility] Address [address] [id number] Care Team Providers Care Phone Representative Name Role Phone Tapan Hill MD Primary Care Provid er Inna Chowdary MD [facility] [phone] Encounter Details Date Type Department Care Team (Latest Contact Info) Description 07/13/2025 Travel Social History Tobacco Use Types Packs/Day Years [...] 04/15/2021 1:20 PM EDT Adonay Mejias * Because of a physical, mental, or [...] doing things Several days 07/13/2025 10:00 AM Any Holder RN Feeling down, depressed, or hopeless Not [...] way Not at all 07/13/2025 10:00 AM EDT Maccartie, Any C, RN Patient Health Questionnaire-9 Score 5 07/13/2025 10:00 AM EDT Any Suggs RN documented as of this encounter Mental Status * Because of a physical, mental, or emotional condition, do you have serious difficulty concentrating, remembering, or making decisions? (5 years old or older) Answer Entry Date Author No 04/15/2021 1:20 PM EDT Adonay Mejias documented in this encounter Plan of Treatment Upcoming Encounters Date Type Department Care Team (Late st Contact Info) Description 08/06/2025 9:30 AM EDT Clinical Support [facility] [address] [phone] 08/06/2025 9:50 AM EDT Office Visit [facility] [address] [phone] Crystal Viera MD 800 [facility] [address] [place] [address] 08/06/2025 11:30 AM EDT Appointment [facility] Infusion 800 [place] [address] 09/14/2025 9:00 AM EST Appointment [facility] Radiology 800 [place] [phone] 09/14/2025 10:00 AM EST Office Visit [facility] [address] [phone] Yves Cantor MD [address] [facility] [address] [place] [phone] 09/14/2025 11:00 AM EST Appointment [facility] Radiation 800 [facility]. [id number] [place] [phone] Inna Chowdary MD 800 [facility] [address] [place] [phone] 09/17/2025 10:30 AM EST Office Visit [facility] [address] [place] [address] Crystal Viera MD 800 [facility] [address] [place] [phone] 09/29/2025 2:20 PM EST Office Visit [facility] [address] [place] [phone] Dio Burger MD 800 [place], [place] [phone] documented as of this encounter Visit Diagnoses [...] documented as of this encounter Care Teams Phone Representative Relationship Specialty Start Date End Date Tapan Hill MD [address] [place] [address] PCP - General 03/11/21 Inna Chowdary MD 800 [facility] [address] [place] [phone] Consulting Physician Radiation Therapy 06/15/25 documented as of this encounter
--- OUTSIDE RECORDS SUMMARY | 2025-07-29 13:00 | XMS_ITS | Encounter Summary ---
Author Organization [facility] Address [address] [place] [address] Care Team Providers Care Geophysical Engineer Name Role Phone Tapan Hill MD Primary Care Provid er Inna Chowdary MD [facility] [phone] Encounter Details Date Type Department Care Team (Late st Contact Info) Description 07/20/2025 Telephone Psych Oncology 800 [place] [phone] Social History Tobacco Use Types Packs/Day Years [...] 1:20 PM EDT Adonay Mejias K * Do you have serious difficulty walking or climbing stairs? Answer Date of Assessment Author No 04/15/2021 1:20 PM EDT Adonay Mejias K * Do you have serious difficulty dressing or bathing? Answer Date of Assessment Author No 04/15/2021 1:20 PM EDT Adonay Mejias K * Because of a physical, mental, or emotional condition, do you have serious difficulty doing errandsalone such as visiting the doctor? Answer Date of Assessment Author No 04/15/2021 1:20 PM EDT Adonay Mejias documented as of this encounter Mental Status * Because of a physical, mental, or emotional condition, do you have serious difficulty concentrating, remembering, or making decisions? (5 years old or older) Answer Entry Date Author No 04/15/2021 1:20 PM EDT Adonay Mejias documented in this encounter Miscellaneous Notes * Telephone Encounter - Willi Lozanonik Donahue, RD - 07/20/2025 9:03 AM EDT Reason for call: supplies Wt Readings from Last 3 Encounters: 07/13/25 83.3 kg (183 lb 10.3 oz) 06/24/25 83.4 kg (183 lb 13.8 oz) 06/22/25 79.4 kg (175 lb) Estimated body mass index is 26.35 kg/m?? as calculated from the following: Height as of 07/13/25: 1.778 m (5' 10 ). Weight as of 07/13/25: 83.3 kg (183 lb 10.3 oz). Lab Results Component Value Date GLUCOSE 118 (H) 06/24/2025 BUN 19 06/24/2025 CREATININE 0.80 06/24/2025 BCR 24 06/24/2025 NA 140 06/24/2025 K 4.6 06/24/2025 CL 104 06/24/2025 CO2 25 06/24/2025 CA 8.4 (L) 08/26/2020 ALBUMIN 3.6 06/24/2025 ALKPHOS 109 06/24/2025 BILITOT 0.4 06/24/2025 Call details: Pt spouse, Ijeoma, returns call and LVM stating they are having issues with Jevity. Pt set-up with [facility] in [place]. Called and spoke with union contract representative at [place] office who is unable to provide much assistance. Recommends faxing new Jevity Rx and having pt call [place] reorder line. Called and spoke with Ijeoma. She is frustrated, stating [facility]. She ordered some online and has been using Boost from the [employer] store. She tried to call the reorderline ~ 2 weeks ago. Discussed plan to send new orders and encouraged to call reorder line. Providedwith reorder line phone number and number for [place] office. Encouraged to call and LVM. Nutrition Intervention New orders entered and faxed to [facility] for Jevity 1.5 6x/day RD contact information provided. Encouraged to contact as needed for nutrition- related questions and concerns. RD remains available PRN. documented in this encounter Plan of Treatment Upcoming Encounters Date Type Department Care Team ([facility] Contact Info) Description 08/06/2025 9:30 AM EDT Clinical Support [facility] 800 [facility] [address] [place] [address] 08/06/2025 9:50 AM EDT Office Visit [facility] [address] [phone] Crystal Viera MD 800 [facility] [address] [place] [address] 08/06/2025 11:30 AM EDT Appointment [facility] Infusion 800 [place] [address] 09/14/2025 9:00 AM EST Appointment [facility] Radiology 800 [place] [address] 09/14/2025 10:00 AM EST Office Visit [facility] [address] [phone] Yves Cantor MD [address] [facility] [address] [place] [address] 09/14/2025 11:00 AM EST Appointment [facility] Radiation 800 [facility]. [address] [place] [phone] Inna Chowdary MD 800 [facility] [address] [place] [phone] 09/17/2025 10:30 AM EST Office Visit [facility] 800 [facility], [address]nd [place] [phone] Crystal Viera MD 800 [facility] Tamara Scott [facility] [address] [place] [phone] 09/29/2025 2:20 PM EST Office Visit [facility] [address] [place] [phone] Dio Burger MD 800 [place], [place] [phone] documented as of this encounter Visit Diagnoses [...] documented as of this encounter Care Teams Geophysical Engineer Relationship Specialty Start Date End Date Tapan Hill MD [address] [place] [address] PCP - General 03/11/21 Inna Chowdary MD [address] [place] [address] [address] [place] [phone] Consulting Physician Radiation Therapy 06/15/25 documented as of this encounter
--- OUTSIDE RECORDS SUMMARY | 2025-07-29 13:00 | XMS_ITS | Clinical Summary ---
Author Organization [facility] Address [address] [place] [address] Care Team Providers Care Director Of Field Coordination Name Role Phone Tapan Hill MD Primary Care Provid er Inna Chowdary MD [facility] [phone] Allergies No known active allergies Medications multivitamin-iron- minerals-folic acid (Centrum Silver, geriatric,) tablet Take 1 tablet by mouth 1 (one) time each day. Active ASPIRIN 81 PO Take 1 tablet by mouth 1 (one) time each day. Active polyethylene glycol (Miralax) 17 GM/SCOOP powder Take 17 g by mouth. Active ondansetron (Zofran) 4 MG tablet Take 1 tablet (4 mg) by mouth twice a day. Active bisoprolol (Zebeta) 5 MG tablet Take 0.5 tablets (2.5 mg) by mouth 1 (one) time each day. 10/24/20 21 Active hydrOXYzine HCl (Atarax) 25 MG tablet Take 2 tablets (50 mg) by mouth. Takes 2 at bedtime Active atorvastatin (Lipitor) 80 MG tablet 09/02/20 22 Active aluminum & magnesium hydroxide-simethic one (Mylanta) 200-200-20 MG/5ML oral suspension Take 30 mL by mouth every 6 (six) hours if needed for indigestion or heartburn. Active acetaminophen (Tylenol) 325 MG tablet Take 2 tablets by mouth every 6 hours as needed. Active carboxymethylcellu lose sod PF (Refresh Celluvisc) 1 % ophthalmic solution dropperette Inject 1 drop into the eye 3 times a day as needed. 03/30/20 25 Active Cetirizine HCl Childrens Alrgy 1 MG/ML syrup 10 mL by Enteral route. 03/29/20 Active doxazosin (Cardura) 1 MG tablet 1 tablet by Enteral route. 01/18/20 Active FIBER PO 480 mL by Enteral route. 03/30/20 25 Active finasteride (Proscar) 5 MG tablet 1 tablet by Enteral route. 01/17/20 Active Sennosides 8.6 MG capsule Take by mouth. Activ e simethicone (Mylicon) 80 MG chewable tablet Chew 1 tablet every 6 hours as needed. Active FIBER PO 240 mL by Enteral route. 03/30/20 Active famotidine (Pepcid) 20 MG tablet Take 1 tablet by mouth 2 times a day. Active oxyCODONE (Roxicodone) 5 MG immediate release tablet 2 tablets by Per G Tube route every 4 hours as needed for moderate pain for up to 120 doses. 120 tablet 06/08/20 Active Additional Information Patient not taking.Reported on 07/13/2025 naloxone (Narcan) 4 mg/0.1 mL nasal spray 1. Give 1 spray in nostril for no/slow breathing or cannot wake after opioid use 2. Call 911 3. Repeat in other nostril if symptoms continue 1 each 06/08/20 25 Active apixaban (Eliquis) 5 MG tablet Take 1 tablet by mouth 2 times a day. 180 tablet 3 06/10/20 Active lidocaine (Xylocaine) 2 % solution Take 45 mL by mouth 4 times a day as needed for mild pain. Mix 45 mL with water and benedryl as directed 200 mL 06/15/20 Active diphenhydrAMINE (Benadryl) 12.5 MG/5ML liquid Mix 30 mL with water and lidocaine as directed 473 mL 06/15/20 25 Active Feeding Supplies [facility] [place] Please send pole for gravity feeds, along with months supply of gravity bags and 5 rolls of blue tape 1 each 5 06/15/20 25 Active prochlorperazine (Compazine) 10 MG tabletIndications: Cancer of oral cavity Take 1 tablet by mouth every 6 hours as needed for nausea or vomiting. 30 tablet 5 06/16/20 25 Active Additional Information Patient not taking.Reported on 07/13/2025 ondansetron ODT (Zofran-ODT) 4 MG disintegrating tablet Dissolve 1 tablet on the tongue every 8 hours as needed for nausea or vomiting. 90 tablet 3 07/03/20 25 Active HYDROcodone-acetam inophen ([place]) 7.5-325 MG tablet 1 tablet by Per G Tube route every 6 hours as needed for severe pain. 120 tablet 07/06/20 25 Active Nutritional Supplements (Jevity 1.5 Roni/Fiber) liquid 237 mL by Per PEG Tube route 6 times a day. 12315 mL 5 07/20/20 25 026 Active HYDROcodone-acetam inophen ([place]) 7.5-325 MG tablet 10/24/20 22 025 Discontinu ed(Reorder ) magic mouthwash (lidocaine, diphenhydramine, Maalox 1:1:1) Swish and spit 10 mL every 4 hours as needed for mucositis or stomatitis. 1200 mL 3 06/15/20 25 025 oxyCODONE (Roxicodone) 10 MG immediate release tablet Take 1 tablet by mouth every 4 hours as needed for severe pain (g89.3). 100 tablet 06/15/20 25 025 Additional Information Patient not taking.Reported on 07/13/2025 ondansetron ODT (Zofran-ODT) 4 MG disintegrating tablet Dissolve 1 tablet on the tongue every 8 hours as needed for nausea or vomiting. 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 06/23/2025 Neoplasm related pain 06/15/2025 CINV (chemotherapy-induced nausea and vomiting) 06/15/2025 Maisonneuve fracture 04/09/2025 Fracture (healed) treatment follow-up 03/29/2025 Overview (06/15/2025): Non weight bearing until approximately 06/09/25 Cardiac resynchronization th erapy defibrillator (SUPERVISOR MARBLE-D) in place 01/27/2025 Biventricular cardiac pacemaker in situ 01/28/20 Primary tongue squamous cell carcinoma Intractable headache 01/24/2025 Elevated sed rate 01/24/2025 Enlarged prostate 01/16/2025 Oropharyngeal dysphagia 01/15/2025 Constipation due to opioid therapy 01/10/2025 Aphasia 07/14/2024 Dysarthria 07/14/2024 Dysphagia 07/14/2024 Hypotensive episode 07/14/2024 Impaired cognition 07/14/2024 Anemia, unspecified 07/22/2022 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 07/22/2022 Gastrostomy status 07/22/2022 Degeneration of lumbar intervertebral disc 07/22 Nicotine dependence, unspecified, uncomplicated 07/22/2022 Thoracic aortic ectasia 07/22/2022 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) 07/04/2022 AF (paroxysmal atrial fibrillation) 02/21/2022 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 Cancer Staging:Clinical stage from 05/13/2025: Signed by Inna Chowdary MD on 06/17/2025 MCCULLOUGH (retinal artery occlusion) 01/04/2022 Cerebral infarction due to u nspecified occlusion or stenosis of other cerebral artery 01/04/2022 After cataract of right eye not obscuring vision 01/04/2022 Pseudophakia of right eye 01/04/2022 Age-related nuclear cataract of left eye 022 Cardiomyopathy, ischemic 09/16/2021 Chronic systolic (congestive) heart failure 08/29 Bilateral carotid artery stenosis 04/29/2021 HFrEF (heart failure with reduced ejection fract ion) 04/29/2021 HTN (hypertension) 04/29/2021 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 Overview (07/14/2024): S/P rectus abdominis free flap & iliac crest bone graft (data deficit) SCCA (squamous cell carcinoma) of skin Overview (07/14/2024): S/P right glossectomy & right neck dissection (1984) with adjuvant XRT S/P left neck dissection (08/25/20) Suspected cerebrovascular accident (CVA) 021 Acute stroke due to ischemia 04/15/2021 Moderate protein-calorie malnutrition 04/14/2021 Hyperlipidemia 04/11/2021 Overview (04/11/2021): - atorvastatin 40mg PO Ataxia 04/10/2021 Overview (04/15/2021): # focal deficits concerning for acute ischemic stroke: oculomotor apraxia, optic ataxia, - LKN 2200 04/09 - NIHSS scale performed on arrival and was 5; initial NIHSS completed at 1430 04/10. - The suspected mechanism is under investigation, given severe stenosis on ICA ( thromboembolic vs hypoperfusion) - Stroke risk factors include age, malignancy, - CTH was personally reviewed w/no evidence of acute infarct or hemorrhage - CTA H&N was personally reviewed w/no evidence of large vessel occlusion but focal severe stenosis in the R-CCA. Moderate stenosis at the L-ICA and paucity of enhancement of the R- ICA with reconstitution at the R-Supraclinoid ICA concenring for non occlusive thrombus or severely diminished flow. - CT Head and CTA were reviewed using Bharti and discussed with attending electronic installer - tPA was not administered as the patient presented outside the window - Thrombectomy was not performed as no large vessel occlusion was demonstrated on imaging - Routine stroke labs TSH 0.68, LDL 101.2, A1C5.3 - MRI head w and w/o IV contrast - ( due to cancer hx) evidence of left MCA infarct - Echocardiogram with bubble study to investigate potential cardiac etiologies - reduced EF 30% cardiology consulted - Secondary stroke prophylaxis with aspirin and (high-intensity statin) atorvastatin - Blood pressure goals: permissive; PRN Labetalol ordered - the patient will remain NPO. Dysphagia was not assessed - Speech Therapy consult for formal swallowing evaluation to assess for dysphagia - Speech Therapy consult to assess and treat stroke related speech and language deficits - PT/OT acute rehab recs - Neuropsych screen to assess cognitive comorbidities with MOCA and PHQ prior to discharge - follow-up w/[facility] in 8-12 weeks following discharge for outpatient stroke management - follow-up w/PCP in 1-2 weeks following discharge for management of comorbid conditions Carotid stenosis 07/09/2020 Foot drop, left 05/08/2018 Lumbar radiculopathy 06/28/2016 Spinal stenosis, lumbar region with neurogenic c laudication 06/28/2016 Joint pain, hip 06/08/2016 Lumbar back pain 06/08/2016 Dysplastic colon polyp 03/19/2016 Overview (07/14/2024): Description: sigmoid, pedunculated, removed completely in [place] 01/2016 Description: sigmoid, pedunculated, removed completely in [place] 01/2016 Resolved Problems Problem Noted Date Diagnosed Date Resolved Date Carotid bruit 07/14/2024 06/15/2025 Pneumonia due to COVID-19 virus 10/21/2023 07/19/2025 Fall 10/19/2023 07/19/2025 Insomnia, unspecified 07/22/20222024 Regular astigmatism of both eyes 01/04/2022 07/19/2025 Presbyopia 01/04/2022 07/19/2025 Seizure 04/11/2021 04/15/2021 Overview (04/15/2021): - patient has a history of encephalitis - after work up there is no concern of seizure COVID-19 virus detected 04/11/202103/29 Overview (04/11/2021): + COVID test at OSH Repeat test is neg, will need one more Repeat COVID test in 24hr Dyslipidemia 04/11/2021 06/15/2025 Overview (07/15/2024): - atorvastatin 40mg PO Abdominal pain 06/08/2016 06/15/2025 Bowel obstruction 12/06/2015 06/15/2025 Encounters Date Type Department Care Team Description 07/20/2025 Telephone Psych Oncology [address] [place] [phone] Iesha Lozano, RD 07/14/2025 Telephone Psych Oncology [address] [place] [phone] Iesha Lozano, RD 07/13/2025 10:00 AM EDT Office Visit [facility] Hematology/BMT and Cellular Therapy Program [address] [phone] Kayley Hastings MD Palliative care by specialist (Primary Dx); Complex care coordination 07/13/2025 9:30 AM EDT Clinical Support [facility] [address] [phone] 07/13/2025 Telephone Special[facility] [place] [address] [facility], [address] [place] [address] H[facility] Clinical Concern/Question 07/13/2025 Travel 07/10/2025 Travel 07/06/2025 Refill [facility] Head, Neck & Respiratory [address] [phone] Peter Wills, [employer] OFFICER 07/03/2025 Refill [facility] Head[facility] Ne[facility] Respiratory [address] [phone] Tiffanie Galicia, SHAWN 06/29/2025 Telephone [facility] Hematology/BMT [facility] Cellular Therapy Program [address] [phone] Hayley Becker 06/24/2025 12:56 PM EDT - 06/24/2025 11:59 PM EDT Hospital Encounter [facility] Infusion [address] [place] [address] Cancer of oral cavity (CMS/HCC) (Primary Dx); CINV (chemotherapy-induced nausea and vomiting); Neoplasm related pain; Moderate protein-calorie malnutrition (CMS/HCC); Oropharyngeal dysphagia Discharge Disposition: Home or Self Care 06/24/2025 12:55 PM EDT Hospital Encounter [facility] [address] [place] [address] Osteoradionecrosis (CMS/HCC) (Primary Dx); Hypothyroidism due to medicaments and other exogenous substances; Cancer of oral cavity (CMS/HCC); 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) Discharge Disposition: Home or Self Care 06/24/2025 Travel 06/23/2025 Orders Only External Location [address] [place] [address] Provider, External 06/23/2025 Telephone [facility] [address] [place] [phone] Latanya Rosa 06/23/2025 Social Work Psych Oncology [address] [place] [phone] Louis, Venita L 06/22/2025 6:49 PM EDT - 06/23/2025 12:40 AM EDT Emergency [facility] Emergency Department 800 [place] [address] Eddi Wiley MD Patel, Abhisek A, MD PEG tube malfunction (CMS/HCC) (Primary Dx); Cancer of oral cavity (CMS/HCC) Discharge Disposition: Home or Self Care 06/22/2025 Travel 06/22/2025 Social Work Psych Oncology [address] [place] [phone] Louis, Venita L 06/19/2025 Telephone [facility] Multidisciplinary Oncology Clinic [address] [place] [address] Kylah Danielle, PharmD 06/17/2025 Travel 06/16/2025 Orders Only [facility] Head, Neck & Respiratory 800 [facility], 2nd [place] [address] Crystal Viera MD Cancer of oral cavity (CMS/HCC) (Primary Dx) 06/16/2025 Telephone Psych Oncology [address] [place] [phone] Iesha Lozano, JUANJOSE 06/16/2025 Social Work Psych Oncology [address] [place] [address] Louis, Venita L 06/15/2025 12:45 PM EDT - 06/15/2025 11:59 PM EDT Hospital Encounter [facility] Radiation 800 [facility]. [id number] [place] [phone] Inna Chowdary MD Cancer of oral cavity (CMS/HCC) (Primary Dx) Discharge Disposition: Still a Patient 06/15/2025 10:20 AM EDT Office Visit [facility] Head[facility] Neck [facility] Respiratory [address] [phone] Crystal Viera MD 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); Hypertension, unspecified type; Neoplasm related pain; CINV (chemotherapy-induced nausea and vomiting); Moderate protein-calorie malnutrition (CMS/HCC); Oropharyngeal dysphagia 06/15/2025 Orders Only [facility] Head[facility] Neck & Respiratory [address] [phone] Yves Cantor MD 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) 06/15/2025 Nutrition [facility] Head[facility] Neck & Respiratory [address] [phone] Iesha Lozano, JUANJOSE 06/15/2025 Travel 06/14/2025 Travel 06/12/2025 Social Work Psych Oncology [address] [place] [address] Venita Louis Cancer of oral cavity (CMS/HCC) (Primary Dx) 06/11/2025 Telephone [facility] Radiation 800 [facility]. [address] [phone] Inna Chowdary MD 06/11/2025 Telephone [facility] Radiation 800 [facility]. 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 ([facility]/HCC) 06/03/2025 7:02 AM EDT - 06/03/2025 11:59 PM EDT Hospital Encounter [facility] Radiology [address] [place] [address] Cancer of oral cavity ([facility]) Discharge Disposition: Home or Self Care 06/03/2025 Social Work Psych Oncology [address] [place] [address] Rosetta Tee 06/03/2025 Travel 06/01/2025 Travel from Last 3 Months Immunizations Immunization Administration Dates Next Due Influenza, high-dose, quadrivalent 06/24/2019 Influenza, seasonal, injectable 07/05/2020 MoSync-Spotie COVID-19 Vaccine (Purple Cap) 12 + 12/17/2020,11/23/2020 Pneumococcal 20-jose g Conj Vaccine 08/02/2023 Rsvpref, Recombinant, Protein Subunit, Adjuvent 08/02/2023 Tdap 05/21/2020 Family History Medical History Relation Name Comments Cancer Brother Cataracts Brother Heart disease Brother Heart disease Father Heart disease Mother Cardiac disorder Other 1 Hypertension Other 2 Cancer Sister Cataracts Sister Heart disease Sister Macular degeneration Sister Relation Name Status Comments Brother Father Mother Other 1 Other 2 Sister Social History Tobacco Use Types Packs/Day Years [...] on file Sexual Orientation Not on file Last Filed Vital Signs Vital Sign Reading [...] Mass Index 26.35 07/13/2025 9:25 AM EDT Plan of Treatment Upcoming Encounters Date Type Department Care Team (Late st Contact Info) Description 08/06/2025 9:30 AM EDT Clinical Support [facility] Head[facility] Neck [facility] Respiratory [address] [phone] 08/06/2025 9:50 AM EDT Office Visit [facility] Head[facility] Neck [facility] Respiratory [address] [phone] Crystal Viera MD 800 [facility] [address] [place] [address] 08/06/2025 11:30 AM EDT Appointment [facility] Infusion [address] [place] [address] 09/14/2025 9:00 AM EST Appointment [facility] Radiology [address] [place] [address] 09/14/2025 10:00 AM EST Office Visit [facility] Head[facility] Neck & Respiratory [address] [phone] Yves Cantor MD [address] [place] [phone] 09/14/2025 11:00 AM EST Appointment [facility] Radiation 800 [facility]. [id number] [place] [phone] Inna Chowdary MD 800 [facility] [address] [place] [phone] 09/17/2025 10:30 AM EST Office Visit [facility] Head[facility] Neck [facility] Respiratory [address] [place] [address] Crystal Viera MD [address] [place] [address] 09/29/2025 2:20 PM EST Office Visit [facility] [address], [address] [place] [phone] Dio Burger MD [address] [place] [address] Health Maintenance Due Date Last Done Comments Dental X-Ray: Bitewings 1940 [facility]-Medicare Annual Wellness (AWV) 1940 [facility]-Infant/Child/Adol SDOH Screenings 1940 [facility]- SDOH Screenings 02/22/1958 [facility]-Adult SDOH Screenings 02/22/1958 [facility]-Zoster Vaccines (1 of 2) 02/22/1959 Dental Prophylaxis 09/03/2022 03/02/2022 Dental Oral Exam 03/30/2023 09/28/2022, 02/01/2022 Dental X-Ray: Full Mouth 02/02/2025 02/01/2022 [facility]-Depression Screening 07/13/2026 07/13/2025, 06/29 [facility]-DTaP,Tdap,and Td Vaccines (2 - Td or Tdap) 05/21/2030 05/21/2020 [facility]-Pneumococcal Vaccine: 50+ Years Completed 08/02/2023 [facility]-RSV Vaccine: 60+ Years or Completed 08/02/2023 [facility]-Obesity Intervention Completed 06/24/2025, 06/30 [id number] Vaccine Completed 07/15/2025, 07/08/2024, 08/07/2023, Additional history exists [facility]-Influenza Vaccine Completed 07/15/2025 , 07/08/2024, 07/23/2023, Additional history exists HPV Vaccines Aged Out No longer eligi ble based on patient's age to complete this topic [facility]-HIB Vaccines Aged Out No longer e ligible based on patient's age to complete this topic [facility]-Hepatitis A Vaccines Aged Out No longer eligible based on patient's age to complete this topic [facility]-IPV Vaccines Aged Out No longer e ligible based on patient's age to complete this topic [facility]-Rotavirus Vaccines Aged Out No lo nger eligible based on patient's age to complete this topic Procedures Procedure Name Priority Date/Time Associated Diagnosis Comments CBC WITH AUTO DIFFERENTIAL Routine 06/24/2025 1:09 PM EDT Cancer of oral cavity (CMS/HCC) COMPREHENSIVE METABOLIC PANEL, PLASMA Routine 06/24/2025 1:09 PM EDT Cancer of oral cavity (CMS/HCC) TSH REFLEX FT4 Routine 06/24/2025 1:09 PM EDT Cancer of oral cavity (CMS/HCC) PET OUTSIDE IMAGES 06/23/2025 12 :37 PM EDT XR PEG TUBE CHECK PORTABLE STAT 06/23/2025 12:[address] SOFT TISSUE NECK W IV CONTRAST Routine 06/03/2025 7:54 AM EDT Cancer of oral cavity (CMS/HCC) CT CHEST W IV CONTRAST Routine 7:54 AM EDT Cancer of oral cavity (CMS/HCC) PERIODIC ORAL EVALUATION - ESTABLISHED PATIENT Routine 09/28/2022 3:00 PM EST Teeth missing PROPHYLAXIS - ADULT Routine 03/02/2022 1 2:00 PM EDT Dental plaque PANORAMIC RADIOGRAPHIC IMAGE Routine 02/01/2022 1:00 PM EDT Teeth missing from Last 3 Months or Most Recently Relevant to Health Maintenance Results * TSH reflex FT4 (06/24/2025 1:09 PM EDT) Thyroid Stimulating Hormone, Plasma 2.78 0.40 - 4.20 uIU/mL 06/24/2025 2:22 PM EDT [facility] Blood Venous blood specimen / Unknown Venipuncture / Unknown 06/24/2025 1:09 PM EDT 06/24/2025 1:45 PM EDT us Crystal Viera MD LAB BLOOD ORDERABLES Final R esult [facility] [address] [place] [address] * (ABNORMAL) CBC and differential (06/24/2025 1:09 PM EDT) WBC Count 7.83 3.70 - 10.30 10*3/uL LAB HEMATOLOGY METHOD 06/24/2025 1:45 PM EDT [facility] RBC Count 3.31(L) 4.60 - 6.10 10*6/uL LAB HEMATOLOGY METHOD 06/24/2025 1:45 PM EDT [facility] HGB 11.3(L) 13.7 - 17.5 g/dL LAB HEMATOLOGY METHOD 06/24/2025 1:45 PM EDT [facility] HCT 33.1(L) 40.0 - 51.0 % LAB HEMATOLOGY METHOD 06/24/2025 1:45 PM EDT [facility] Platelet Count 252 155 - 369 10*3/uL LAB HEMATOLOGY METHOD 06/24/2025 1:45 PM EDT [facility] MCV 100(H) 79 - 98 fL LAB HEMATOLOGY METHOD 06/24/2025 1:45 PM EDT [facility] MCH 34.1(H) 26.0 - 32.0 pg LAB HEMATOLOGY METHOD 06/24/2025 1:45 PM EDT [facility] MCHC 34.1 30.7 - 35.5 g/dL LAB HEMATOLOGY METHOD 06/24/2025 1:45 PM EDT [facility] RDW 12.6 11.5 - 14.5 % LAB HEMATOLOGY METHOD 06/24/2025 1:45 PM EDT [facility] MPV 9.9 8.8 - 12.5 fL LAB HEMATOLOGY METHOD 06/24/2025 1:45 PM EDT [facility] nRBC 0.0 <=0.0 per 100 WBCs LAB HEMATOLOGY METHOD 06/24/2025 1:45 PM EDT [facility] Differential Type Automated LAB HEMATOLOGY METHOD 06/24/2025 1:45 PM EDT [facility] Neutrophils % 73 % LAB HEMATOLOGY METHOD 06/24/2025 1:45 PM EDT [facility] Lymphocytes % 14 % LAB HEMATOLOGY METHOD 06/24/2025 1:45 PM EDT [facility] Monocytes % 8 % LAB HEMATOLOGY METHOD 06/24/2025 1:45 PM EDT [facility] Eosinophils % 3 % LAB HEMATOLOGY METHOD 06/24/2025 1:45 PM EDT [facility] Basophils % 1 % LAB HEMATOLOGY METHOD 06/24/2025 1:45 PM EDT [facility] Immature Granulocytes % 1 % LAB HEMATOLOGY METHOD 06/24/2025 1:45 PM EDT [facility] Neutrophils Absolute 5.77 1.60 - 6.10 10*3/uL LAB HEMATOLOGY METHOD 06/24/2025 1:45 PM EDT [facility] Lymphocytes Absolute 1.06(L) 1.20 - 3.90 10*3/uL LAB HEMATOLOGY METHOD 06/24/2025 1:45 PM EDT [facility] Monocytes Absolute 0.66 0.30 - 0.90 10*3/uL LAB HEMATOLOGY METHOD 06/24/2025 1:45 PM EDT [facility] Eosinophils Absolute 0.25 0.00 - 0.50 10*3/uL LAB HEMATOLOGY METHOD 06/24/2025 1:45 PM EDT [facility] Basophils Absolute 0.04 0.00 - 0.10 10*3/uL LAB HEMATOLOGY METHOD 06/24/2025 1:45 PM EDT [facility] Immature Granulocytes Absolute 0.05 0.00 - 0.06 10*3/uL LAB HEMATOLOGY METHOD 06/24/2025 1:45 PM EDT [facility] Blood Venous blood specimen / Unknown Venipuncture / Unknown 06/24/2025 1:09 PM EDT 06/24/2025 1:37 PM EDT Narrative [facility] - 06/24/2025 1:45 PM EDT Therapeutic decision making should be based on absolute values, rather than percentages. us Crystal Viera MD LAB BLOOD ORDERABLES Final R esult [facility] [address] [place] [address] * (ABNORMAL) Comprehensive metabolic panel (06/24/2025 1:09 PM EDT) Glucose, Plasma 118(H) 74 - 99 mg/dL 06/24/2025 2:22 PM EDT [facility] BUN, Plasma 19 8 - 23 mg/dL 06/24/2025 2:22 PM EDT [facility] Creatinine, Plasma 0.80 0.70 - 1.20 mg/dL 06/24/2025 2:22 PM EDT [facility] BUN/Creatinine Ratio 24 06/24/2025 2:22 PM EDT [facility] Sodium, Plasma 140 136 - 145 mmol/L 06/24/2025 2:22 PM EDT [facility] Potassium, Plasma 4.6 3.6 - 4.9 mmol/L 06/24/2025 2:22 PM EDT [facility] Chloride, Plasma 104 97 - 107 mmol/L 06/24/2025 2:22 PM EDT [facility] CO2, Plasma 25 22 - 29 mmol/L 06/24/2025 2:22 PM EDT [facility] Anion Gap 11 6 - 16 mmol/L 06/24/2025 2:22 PM EDT [facility] Total Calcium, Plasma 8.9 8.9 - 10.2 mg/dL 06/24/2025 2:22 PM EDT [facility] Total Protein 6.5 6.3 - 7.9 g/dL 06/24/2025 2:22 PM EDT [facility] Albumin, Plasma 3.6 3.5 - 5.2 g/dL 06/24/2025 2:22 PM EDT [facility] AST, Plasma 28 10 - 50 U/L 06/24/2025 2:22 PM EDT [facility] Comment:Hemolyzed, result ma y be falsely increased. ALT, Plasma 20 10 - 50 U/L 06/24/2025 2:22 PM EDT [facility] Alkaline Phosphatase, Plasma 109 40 - 115 U/L 06/24/2025 2:22 PM EDT [facility] Total Bilirubin, Plasma 0.4 0.2 - 1.1 mg/dL 06/24/2025 2:22 PM EDT [facility] eGFRcr 86.7 mL/min/1.7 3m*2 06/24/2025 2:22 PM EDT [facility] Comment:Reported eGFRcr in m L/min/1.73m2 is based the CKD-EPI 2020 equation that does not use a race coefficient. Blood Venous blood specimen / Unknown Venipuncture / Unknown 06/24/2025 1:09 PM EDT 06/24/2025 1:45 PM EDT us Crystal Viera MD LAB BLOOD ORDERABLES Final R esult [facility] [address] [place] [address] * PET OUTSIDE IMAGES (06/23/2025 12:37 PM EDT) Anatomical Region Laterality Modality Nuclear Medicine 06/23/2025 12:3 7 PM EDT us External Provider IMG NM PROCEDURES Final Result * XR PEG Tube Check Portable (06/23/2025 [...] this report, I, the attending physician, florence Negron have personally reviewed the images/data for the aboveexamination(s) and agree with the final edited report. Drafted by Cheyanne Strickland MD on 06/23/2025 1:02 AM Final report signed by Kimani Jerez MD on 06/23/2025 1:13 AM Eddi Wiley MD IMG XR PROCEDURES Final Result * CT Chest w [...] Alexandro SANTANA IMRowan CT PROCEDURES Final Result * CT Soft Tissue Neck w IV [...] error, please notify the sender immediately at [phone] and permanently delete the original report and destroy any copies or printouts. Narrative 06/03/2025 2:37 PM EDT [facility] - Phone Outpatient NAME: Loi Lux DATE OF EXAM: 06/03/2025 Patient No: [id number] Physician: Braxton Date of : 1940 Past [...] Lux DATE OF EXAM: 06/03/2025 Patient No: [id number] Physician: Braxton Date of : 1940 Past [...] in error, pleasenotify the sender immediately at [phone] and permanently delete theoriginal report and destroy any copies or printouts. Alexandro SANTANA IMG CT PROCEDURES Final Result from Last 3 Months Insurance MEDICARE [facility] Care Teams Director Of Field Coordination Relationship Specialty Start Date End Date Tapan Hill MD [address] [place] [address] PCP - General 03/11/21 Inna Chowdary MD [address] [place] [address] Consulting Physician Radiation Therapy 06/15/25
--- OUTSIDE RECORDS SUMMARY | 2025-07-29 13:00 | XMS_ITS | Encounter Summary ---
Author Organization [facility] Address [address] [id number] Care Team Providers Care Content Strategy Lead Name Role Phone Tapan Hill MD Primary Care Provid er Inna Chowdary MD [facility] [phone] Encounter Details Date Type Department Care Team (Latest Contact Info) Description 07/10/2025 Travel Social History Tobacco Use Types Packs/Day [...] CC Head, Neck & Respiratory [address] [address] 08/06/2025 9:50 AM EDT Office Visit Pav [facility] Head[facility] Neck & Respiratory [address] [address] Crystal Viera MD 800 [facility] [address] [place] [address] 08/06/2025 11:30 AM EDT Appointment [facility] Infusion 800 [place] [address] 09/14/2025 9:00 AM EST Appointment [facility] Radiology 800 [place] [address] 09/14/2025 10:00 AM EST Office Visit Pav [facility] Head[facility] Neck & Respiratory [address] [address] Yves Cantor MD [address] [facility] [address] [place] [address] 09/14/2025 11:00 AM EST Appointment [facility] Radiation 800 [facility]. [id number] [place] [address] Inna Chowdary MD 800 [facility] [address] [place] [address] 09/17/2025 10:30 AM EST Office Visit Pav CC Head, Neck & Respiratory 800 [facility], 2nd [place] [address] Crystal Viera MD 800 [facility] Tamara Scott [facility] [address] [place] [address] 09/29/2025 2:20 PM EST Office Visit [place] [facility] [address], 2nd [place] [address] Dio Burger MD 800 [place], [place] [phone] documented as of this encounter Visit Diagnoses [...] documented as of this encounter Care Teams Content Strategy Lead Relationship Specialty Start Date End Date Tapan Hill MD [address] [place] [address] PCP - General 03/11/21 Inna Chowdary MD 800 [facility] [address] [place] [address] Consulting Physician Radiation Therapy 06/15/25 documented as of this encounter
--- OUTSIDE RECORDS SUMMARY | 2025-07-29 13:00 | XMS_ITS | Encounter Summary ---
Author Organization [facility] Address [address] [place] [address] Care Team Providers Care Carder Blankets Name Role Phone Tapan Hill MD Primary Care Provid er Inna Chowdary MD [facility] [phone] Encounter Details Date Type Department Care Team (Late st Contact Info) Description 06/23/2025 Telephone [facility] Infusion 800 [place] [address] Latanya Roas Social History Tobacco Use Types Packs/Day Years [...] Assessment Author No 04/15/2021 1:20 PM EDT Randell Adonay scarlett Bishop * Do you have serious difficulty dressing [...] encounter Miscellaneous Notes * Telephone Encounter - Latanya Rosa - 06/23/2025 1:21 PM EDT Spoke with pts 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 documented in this encounter Plan of Treatment Upcoming Encounters Date Type Department Care Team (Late st Contact Info) Description 08/06/2025 9:30 AM EDT Clinical Support Pav CC Head, Neck & Respiratory [address] [address] 08/06/2025 9:50 AM EDT Office Visit Pav CC Head, Neck & Respiratory [address] [address] Crystal Viera MD 800 [facility] Tamara [address] [address] 08/06/2025 11:30 AM EDT Appointment [facility] Infusion 800 [place] [address] 09/14/2025 9:00 AM EST Appointment [facility] Radiology 800 [place] [address] 09/14/2025 10:00 AM EST Office Visit Pav CC Head, Neck & Respiratory [address] [address] Yves Cantor MD [address] [facility] [address] [place] [address] 09/14/2025 11:00 AM EST Appointment [facility] Radiation 800 [facility]. [id number] [place] [address] Inna Chowdary MD 800 [facility] [address] [place] [address] 09/17/2025 10:30 AM EST Office Visit Pav CC Head, Neck & Respiratory 800 [facility], 2nd [place] [address] Crystal Viera MD 800 [facility] [address] [place] [address] 09/29/2025 2:20 PM EST Office Visit [place] [facility] [address], [address]nd [place] [address] Dio Burger MD 800 [place] [address] documented as of this encounter Visit Diagnoses [...] documented as of this encounter Care Teams Carder Blankets Relationship Specialty Start Date End Date Tapan Hill MD [address] [place] [address] PCP - General 03/11/21 Inna Chowdary MD 800 [facility] [address] [place] [address] Consulting Physician Radiation Therapy 06/15/25 documented as of this encounter
--- OUTSIDE RECORDS SUMMARY | 2025-07-29 13:00 | XMS_ITS | Encounter Summary ---
Author Organization [facility] Address [address] [place] [address] Care Team Providers Care Floor Helper Name Role Phone Tapan Hill MD Primary Care Provid er Inna Chowdary MD Unavailable [phone] Reason for Visit * Reason Onset Date Comments Med Refill 07/06/2025 Encounter Details Date Type Department Care Team (Late st Contact Info) Description 07/06/2025 Refill Pav CC Head, Neck & Respiratory 800 [facility], 2nd [place] [address] Peter Wills, CARPENTER'S HELPER 800 [facility] [address] [place] [address] Social History Tobacco Use Types Packs/Day Years [...] Upcoming Encounters Date Type Department Care Team ([facility] st Contact Info) Description 08/06/2025 9:30 AM EDT Clinical Support Pav CC Head, Neck & Respiratory [address] [address] 08/06/2025 9:50 AM EDT Office Visit Pav CC Head, Neck & Respiratory [address] [address] Crystal Viera MD 800 [facility] Tamara [address] [address] 08/06/2025 11:30 AM EDT Appointment [facility] Infusion 800 [place] [address] 09/14/2025 9:00 AM EST Appointment [facility] Radiology 800 [place] [address] 09/14/2025 10:00 AM EST Office Visit Pav CC Head, Neck & Respiratory [address] [phone] Yves Cantor MD [address] [facility] [address] [place] [address] 09/14/2025 11:00 AM EST Appointment [facility] CC Radiation 800 [facility]. [id number] [place] [address] Inna Chowdary MD 800 [facility] [address] [place] [address] 09/17/2025 10:30 AM EST Office Visit Pav CC Head, Neck & Respiratory 800 [facility], 2nd [place] [address] Crystal Viera MD 800 [facility] [address] [place] [address] 09/29/2025 2:20 PM EST Office Visit [place] [facility] [address], 2nd [place] [address] Dio Burger MD 800 [place] [address] documented as of this encounter [...] documented as of this encounter Care Teams Floor Helper Relationship Specialty Start Date End Date Tapan Hill MD [address] [place] [address] PCP - General 03/11/21 Inna Chowdary MD 800 [facility] [address] [place] [address] Consulting Physician Radiation Therapy 06/15/25 documented as of this encounter
--- OUTSIDE RECORDS SUMMARY | 2025-07-29 13:00 | XMS_ITS | Encounter Summary ---
Author Organization [facility] Address [address] [place] [address] Care Team Providers Care Five Piece Expansion Maker Hand Name Role Phone Tapan Hill MD Primary Care Provid er Inna Chowdary MD [facility] [phone] Reason for Visit * Reason Comments Resource Navigation Encounter Details Date Type Department Care Team (Late st Contact Info) Description 06/23/2025 Social Work Psych Oncology 800 [place] [address] Venita Louis Social History Tobacco Use Types Packs/Day Years [...] No 04/15/2021 1:20 PM EDT Adonay Mejias Edna documented as of this encounter Mental Status * Because of a physical, mental, or emotional condition, do you have serious difficulty concentrating, remembering, or making decisions? (5 years old or older) Answer Entry Date Author No 04/15/2021 1:20 PM EDT Adonay Mejias documented in this encounter Miscellaneous Notes * Progress Notes - Venita Louis - 06/23/2025 9:20 AM EDT Encounter Type: Phone Call Disease Status: Established Patient Clinic Location: [facility] Disease Type: Head & Neck Education Provided: Lodging Intervention Level: 2 Units (1 unit = 15 minutes): 2 Narrative: INCIDENT RESPONSE ANALYST received email from pts Mirlande inquiring of lodging assistance for pt upcoming tx. INCIDENT RESPONSE ANALYST contacted Mirlande via phone to discuss lodging options. Mirlande stated that pt received new feeding tube yesterday upon arrival to [facility]. Mirlande stated that pt is to begin chemo tx tomorrow. INCIDENT RESPONSE ANALYST expressed gladness in new feeding tube. INCIDENT RESPONSE ANALYST discussed with Mirlande criteria for free of charge lodging options and discussed lodging for tonight with check out tomorrow. Mirlande stated that she was concernedfor reactions following pts tx and requested stay following pts tx. INCIDENT RESPONSE ANALYST informed Mirlande since it was not medically necessary pt stay nearby following tx and pt has no additional appts the following day, discounted rate lodging would be their only option at this time. Mirlande expressed understanding and stated they are currently staying at [id number] locally and she did not want to move hotels today and tomorrow. INCIDENT RESPONSE ANALYST validated her feelings of this and encouraged her to follow up in the future should lodging prior to pt appts be needed. Mirlande denied additional questions or needs at this time and was agreeable to follow up as needed. INCIDENT RESPONSE ANALYST remains available ongoing prn. Venita Zunigae HAND SHAKER, INCIDENT RESPONSE ANALYST [phone] documented in this encounter Plan of Treatment Upcoming Encounters Date Type Department Care Team (Late st Contact Info) Description 08/06/2025 9:30 AM EDT Clinical Support Pav CC Head, Neck & Respiratory [address] [phone] 08/06/2025 9:50 AM EDT Office Visit Pav CC Head, Neck & Respiratory [address] [phone] Crystal Viera MD 800 [facility] [address] [place] [address] 08/06/2025 11:30 AM EDT Appointment [facility] H Infusion 800 [place] [address] 09/14/2025 9:00 AM EST Appointment [facility] H Radiology 800 [place] [address] 09/14/2025 10:00 AM EST Office Visit Pav CC Head, Neck & Respiratory [address] [address] Yves Cantor MD [address] [facility] [address] [place] [address] 09/14/2025 11:00 AM EST Appointment PAV CC Radiation 800 [facility]. [id number] [place] [address] Inna Chowdary MD [address] [place] [address] [address] [place] [address] 09/17/2025 10:30 AM EST Office Visit Pav CC Head, Neck & Respiratory [address] [address] Crystal Viera MD 800 [facility] Tamara Scott dg Siva [address] [place] [address] 09/29/2025 2:20 PM EST Office Visit [place] [facility] [address], 2nd [place] [address] Dio Burger MD 800 [place] [address] documented as of this encounter [...] documented as of this encounter Care Teams Five Piece Expansion Maker Hand Relationship Specialty Start Date End Date Tapan Hill MD [address] [place] [address] PCP - General 03/11/21 Inna Chowdary MD 800 [facility] [address] [place] [address] Consulting Physician Radiation Therapy 06/15/25 documented as of this encounter
--- OUTSIDE RECORDS SUMMARY | 2025-07-29 13:00 | XMS_ITS | Encounter Summary ---
Author Organization [facility] Address [address] [place] [address] Care Team Providers Care Asbestos Surveyor Name Role Phone Tapan Hill MD Primary Care Provid er Inna Chowdary MD [facility] [phone] Encounter Details Date Type Department Care Team (Late st Contact Info) Description 06/23/2025 Orders Only External Location 800 [place] [address] Provider, External Social History Tobacco Use Types Packs/Day Years [...] 04/15/2021 1:20 PM EDT Randell Adonay scarlett K * Do you have serious difficulty dressing or bathing? Answer Date of Assessment Author No 04/15/2021 1:20 PM EDT Adonay Mejias K * Because of a physical, mental, or emotional condition, do you have serious difficulty doing errandsalone such as visiting the doctor? Answer Date of Assessment Author No 04/15/2021 1:20 PM EDT Randell Adonay scarlett K documented as of this encounter Mental Status * Because of a physical, mental, or emotional condition, do you have serious difficulty concentrating, remembering, or making decisions? (5 years old or older) Answer Entry Date Author No 04/15/2021 1:20 PM EDT Randell Adonay scarlett Bishop documented in this encounter Plan of Treatment Upcoming Encounters Date Type Department Care Team ([facility] st Contact Info) Description 08/06/2025 9:30 AM EDT Clinical Support Pav CC Head, Neck & Respiratory 800 [facility] [address] [place] [address] 08/06/2025 9:50 AM EDT Office Visit Pav CC Head, Neck & Respiratory 800 [facility] [address]nd [place] [address] Crystal Viera MD 800 [facility] [address] [place] [address] 08/06/2025 11:30 AM EDT Appointment P[facility] H Infusion 800 [place] [address] 09/14/2025 9:00 AM EST Appointment P[facility] H Radiology 800 [place] [address] 09/14/2025 10:00 AM EST Office Visit Pav CC Head, Neck & Respiratory 800 [facility] [address]nd [place] [address] Yves Cantor MD [address] [facility] [address] [place] [address] 09/14/2025 11:00 AM EST Appointment PAV CC Radiation 800 [facility]. [id number] [place] [address] Inna Chowdary MD 800 [facility] Siva [address] [place] [address] 09/17/2025 10:30 AM EST Office Visit Pav CC Head, Neck & Respiratory 800 [facility], 2nd [place] [address] Crystal Viera MD 800 [facility] Tamara [address] S[address] [place] [address] 09/29/2025 2:20 PM EST Office Visit [place] [facility] [address], 2nd [place] [address] Dio Burger MD 800 [place], [place] [phone] documented as of this encounter Procedures Procedure Name Priority Date/Time Associated Diagnosis Comments PET OUTSIDE IMAGES 06/23/2025 12:37 PM EDT documented in this encounter Results * PET OUTSIDE IMAGES (06/23/2025 12:37 PM EDT) Anatomical Region Laterality Modality Nuclear Medicine 06/23/2025 12:3 7 PM EDT External Provider IMG NM PROCEDURES Final Result documented in this encounter Visit Diagnoses Not on filedocumented [...] documented as of this encounter Care Teams Asbestos Surveyor Relationship Specialty Start Date End Date Tapan Hill MD [address] [place] [address] PCP - General 03/11/21 Inna Chowdary MD [address] [address] Consulting Physician Radiation Therapy 06/15/25 documented as of this encounter
--- OUTSIDE RECORDS SUMMARY | 2025-07-29 13:00 | XMS_ITS | Encounter Summary ---
Author Organization [facility] Address [address] [place] [address] Care Team Providers Care Flaking Roll Operator Name Role Phone Tapan Hill MD Primary Care Provid er Inna Chowdary MD [facility] [phone] Reason for Visit * Reason Onset Date Comments HCN Clinical Concern/Question 07/13/2025 Encounter Details Date Type Department Care Team ([facility] st Contact Info) Description 07/13/2025 Telephone Specialty Care Clinic [address], [address] [place] [address] HCN Clinical Concern/Question Social History Tobacco Use Types Packs/Day Years [...] PM EDT Randell Adonay scarlett K * Because of a physical, mental, or emotional condition, do you have serious difficulty doing errandsalone such as visiting the doctor? Answer Date of Assessment Author No 04/15/2021 1:20 PM EDT Randell Adonay scarlett K * Over the past 2 weeks, [...] usual. Not at all 07/13/2025 10:00 AM EDT Any Suggs, RN Thoughts that you would be better off or hurting yourself in some way Not at all 07/13/2025 10:00 AM EDT Any Suggs, RN Patient Health Questionnaire-9 Score 5 07/13/2025 [...] encounter Miscellaneous Notes * Telephone Encounter - Shikha Aparicio - 07/17/2025 2:08 PM EDT Patient Phone Message Reason for Call: Pt called to schedule pt referral appt. Diagnosis is not listed on the DT. She asks for a direct number to the nurse to schedule appt. Best contact number and optimal time of day to reach caller: Ijeoma--[phone] Note: Please do not reply to this message. Follow-up communication and further actions as a result of this message need to be communicated with the patient directly, if the patient is not active onMyChart. If the patient is active on MyChart, they will receive notification of the communication/outcome via MyChart. * Telephone Encounter - Olga Lidia Garcia - 07/15/2025 1:35 PM EDT Lvm for cb to schedule in [facility] * Telephone Encounter - Olga Lidia Garcia - 07/13/2025 12:37 PM EDT Lvm for cb to schedule in [facility] * Telephone Encounter - Nahomi Mack - 07/13/2025 11:08 AM EDT Clinical Concern/Question Reason for Call: Referring office calling to check status of referral to GI. Best contact number: [phone] (home) Optimal time of day to reach caller: ANYTIME Additional comments/information from caller: None Note: Please do not reply to this message. Follow-up communication and further actions as a result of this message need to be communicated with the patient directly, if the patient is not active onMyChart. If the patient is active on MyChart, they will receive notification of the communication/outcome via [facility]. documented in this encounter Plan of Treatment Upcoming Encounters Date Type Department Care Team ([facility] st Contact Info) Description 08/06/2025 9:30 AM EDT Clinical Support Pav CC Head, Neck & Respiratory [address] [address] 08/06/2025 9:50 AM EDT Office Visit Pav CC Head, Neck & Respiratory [address] [phone] Crystal Viera MD 800 [facility] [address] [place] [address] 08/06/2025 11:30 AM EDT Appointment PAV H Infusion 800 [place] [address] 09/14/2025 9:00 AM EST Appointment PAV H Radiology 800 [place] [address] 09/14/2025 10:00 AM EST Office Visit Pav CC Head, Neck & Respiratory [address] [phone] Yves Cantor MD [address] [facility] [address] [place] [address] 09/14/2025 11:00 AM EST Appointment PAV CC Radiation 800 [facility]. [id number] [place] [address] Inna Chowdary MD 800 [facility] [address] [place] [address] 09/17/2025 10:30 AM EST Office Visit Pav CC Head, Neck & Respiratory 800 [facility], 2nd [place] [address] Crystal Viera MD 800 [facility] Tamara Scott [facility] S[address] [place] [address] 09/29/2025 2:20 PM EST Office Visit [place] [facility] [address], [address]nd [place] [address] Dio Burger MD 800 [place], [place] [phone] documented as of this encounter Visit Diagnoses [...] documented as of this encounter Care Teams Flaking Roll Operator Relationship Specialty Start Date End Date Tapan Hill MD 2002 [place] [address] PCP - General 03/11/21 Inna Chowdary MD 800 [facility] [address] [place] [address] Consulting Physician Radiation Therapy 06/15/25 documented as of this encounter
--- OUTSIDE RECORDS SUMMARY | 2025-07-29 13:00 | XMS_ITS | Encounter Summary ---
Author Organization [facility] Address [address] [place] [address] Care Team Providers Care Knuckle Bender Name Role Phone Tapan Hill MD Primary Care Provid er Inna Chowdary MD [facility] [phone] Reason for Visit * Reason Comments Resource Navigation Encounter Details Date Type Department Care Team (Late st Contact Info) Description 06/22/2025 Social Work Psych Oncology [address] [place] [address] Venita Luois Social History Tobacco Use Types Packs/Day Years [...] Assessment Author No 04/15/2021 1:20 PM EDT RandellAdonay segundo K * Do you have serious difficulty dressing or bathing? Answer Date of Assessment Author No 04/15/2021 1:20 PM EDT RandellAdonay K * Because of a physical, mental, or emotional condition, do you have serious difficulty doing errandsalone such as visiting the doctor? Answer Date of Assessment Author No 04/15/2021 1:20 PM EDT Randell Adonay pantoja K documented as of this encounter Mental Status * Because of a physical, mental, or emotional condition, do you have serious difficulty concentrating, remembering, or making decisions? (5 years old or older) Answer Entry Date Author No 04/15/2021 1:20 PM EDT Adonay Mejias scarlett Bishop documented in this encounter Miscellaneous Notes * Progress Notes - Venita Louis - 06/22/2025 3:47 PM EDT Encounter Type: Phone Call Disease Status: Established Patient Clinic Location: [facility] Disease Type: Head & Neck Services Provided: Clinical Navigation Intervention Level: 2 Units (1 unit = 15 minutes): 2 Narrative: LEAD SALES CONSULTANT followed up on missed call from pt Ijeoma. LEAD SALES CONSULTANT introduced self and nature of the call. Ijeoma was pleasant and engaging. LEAD SALES CONSULTANT inquired of pt wellbeing and current needs. Ijeoma stated that ptinitially needed lodging for later this week, however, his feeding tube came out recently and they are trying to find out if they need to come to ED. LEAD SALES CONSULTANT messaged RN and requested follow up call for assistance. During the call, Ijeoma received call from pts PCP advising them to go to ED. Ijeoma stated that they would come to the ED and follow up with LEAD SALES CONSULTANT once things began to settle. LEAD SALES CONSULTANT expressed understanding and encouraged them to follow up as needed. LEAD SALES CONSULTANT remains available ongoing prn. Venita GRIMM, LEAD SALES CONSULTANT [phone] * Progress Notes - Venita Louis - 06/22/2025 3:47 PM EDT Encounter Type: Phone Call Disease Status: Established Patient Clinic Location: [facility] Disease Type: Head & Neck Services Provided: Clinical Navigation Education Provided: Lodging Intervention Level: 2 Units (1 unit = 15 minutes): 2 Narrative: LEAD SALES CONSULTANT received call back from pt Ijeoma stating that pt and his daughter are currently on their way to [facility]. Ijeoma inquired of lodging for tonight until pt appts later this week. LEAD SALES CONSULTANT informed Ijeoma of discounted rate lodging options while pt is in the ED. LEAD SALES CONSULTANT encouraged Ijeoma to follow up should additional lodging be needed for pts appts later this week. Ijeoma was understanding and appreciative for the assistance. LEAD SALES CONSULTANT emailed Ijeoma list of discounted hotel options. There were no furtherneeds at this time. LEAD SALES CONSULTANT remains available ongoing prn. Venita Louis ASSEMBLER CRIMPER, LEAD SALES CONSULTANT [phone] documented in this encounter Plan of Treatment Upcoming Encounters Date Type Department Care Team (Late st Contact Info) Description 08/06/2025 9:30 AM EDT Clinical Support [facility] Head[facility] Ne[facility] Res[facility] [address] [address] 08/06/2025 9:50 AM EDT Office Visit [facility] Head[facility] Neck [facility] Respiratory [address] [address] Crystal Viera MD 800 [facility] Tamara Scott [facility] [address] [place] [address] 08/06/2025 11:30 AM EDT Appointment PAV H Infusion [address] [place] [address] 09/14/2025 9:00 AM EST Appointment PAV H Radiology [address] [place] [address] 09/14/2025 10:00 AM EST Office Visit [facility] Head[facility] Ne[facility] Respiratory [address] [address] Yves Cantor MD [address] [facility] [address] [place] [address] 09/14/2025 11:00 AM EST Appointment P[facility] CC Radiation 800 [facility]. [id number] [place] [address] Inna Chowdary MD 800 [facility] [address] [place] [address] 09/17/2025 10:30 AM EST Office Visit [facility] Head[facility] Neck & Respiratory 800 [facility], 2nd [place] [address] Crystal Viera MD 800 [facility] Tyler dg [facility] [address] [place] [address] 09/29/2025 2:20 PM EST Office Visit [place] [facility] [address], [address]nd [place] [address] Dio Burger MD 800 [place] [address] documented as of this encounter [...] documented as of this encounter Care Teams Knuckle Bender Relationship Specialty Start Date End Date Tapan Hill MD [address] [place] [address] PCP - General 03/11/21 Inna Chowdary MD 800 [facility] [address] [place] [address] Consulting Physician Radiation Therapy 06/15/25 documented as of this encounter
--- OUTSIDE RECORDS SUMMARY | 2025-07-29 13:00 | XMS_ITS | Encounter Summary ---
Author Organization [facility] Address [address] [place] [address] Care Team Providers Care Med Specialist Name Role Phone Tapna Hill MD Primary Care Provid er Inna Chowdary MD [facility] [phone] Encounter Details Date Type Department Care Team (Late st Contact Info) Description 06/29/2025 Telephone PAV CC Hematology/BMT and Cellular Therapy Program [address] [place] [address] [place] [address] Hayley Becker Social History Tobacco Use Types Packs/Day Years [...] PM EDT Randell, E mma K * Do you have serious [...] Mejias mma K documented in this encounter Miscellaneous Notes * Telephone Encounter - Hayley Becker - 06/29/2025 2:27 PM EDT STRAIGHT CUTTER contacted pt and spoke with , Ijeoma, daughter, Alessandra and pt. Scheduled with palliative for 07/13. SIRISHA Celaya STRAIGHT CUTTER-S Social Work [facility] [phone] [email or web address] [employer] Voice messaging documented in this encounter Plan of Treatment Upcoming Encounters Date Type Department Care Team ([facility] st Contact Info) Description 08/06/2025 9:30 AM EDT Clinical Support [facility] Head, Neck & Respiratory 800 [facility], 2nd [place] [address] 08/06/2025 9:50 AM EDT Office Visit [facility] Head, Neck & Respiratory [address] [place] [address], 2nd [place] [address] Crystal Viera MD 800 [facility] [address] [place] [address] 08/06/2025 11:30 AM EDT Appointment PAV H Infusion 800 [place] [address] 09/14/2025 9:00 AM EST Appointment PAV H Radiology 800 [place] [address] 09/14/2025 10:00 AM EST Office Visit [facility] Head[facility] Neck & Respiratory 800 [facility], 2nd [place] [address] Yves Cantor MD [address] [facility] [address] [place] [address] 09/14/2025 11:00 AM EST Appointment PAV CC Radiation 800 [facility]. [id number] [place] [address] Inna Chowdary MD 800 [facility] [address] [place] [address] 09/17/2025 10:30 AM EST Office Visit [facility] Head, Neck & Respiratory 800 [facility], 2nd [place] [address] Crystal Viera MD [address] [place] [address] [address] [place] [address] 09/29/2025 2:20 PM EST Office Visit [place] [facility] [address], 2nd [place] [address] Dio Burger MD 800 [place], [place] [phone] documented as of this encounter Visit Diagnoses [...] documented as of this encounter Care Teams Med Specialist Relationship Specialty Start Date End Date Tapan Hill MD [address] [place] [address] PCP - General 03/11/21 Inna Chowdary MD [address] [place] [address] Consulting Physician Radiation Therapy 06/15/25 documented as of this encounter
--- OUTSIDE RECORDS SUMMARY | 2025-07-29 13:00 | XMS_ITS | Encounter Summary ---
Author Organization [facility] Address [address] [place] [address] Care Team Providers Care Manager Oracle Retail Name Role Phone Tapan Hill MD Primary Care Provid er Inna Chowdary MD [facility] [phone] Encounter Details Date Type Department Care Team (Late st Contact Info) Description 06/19/2025 Telephone PAV Multidisciplinary Oncology Clinic [address] [place] [address] Kylah Danielle, PharmD Social History Tobacco Use Types Packs/Day Years [...] 04/15/2021 1:20 PM EDT Adonay Mejias K documented as of this encounter Mental Status * Because of a physical, mental, or emotional condition, do you have serious difficulty concentrating, remembering, or making decisions? (5 years old or older) Answer Entry Date Author No 04/15/2021 1:20 PM EDT Randell, Adonay pantoja K documented in this encounter Miscellaneous Notes * Telephone Encounter - Kylah Danielle PharmD - 06/19/2025 10:22 AM EDT [facility] - Clinical Pharmacist Phone Note: Loi Will Jose J;s spouse was called today to review patient's medication list in the setting of treatment in Dr. Viera's clinic. We reviewed the patient's medication list, and the list was updated in the chart accordingly. Her questions were answered. She was encouraged to contact clinic again if additional questions arise. Kylah Danielle PharmD Clinical Oncology Pharmacist documented in this encounter Plan of Treatment Upcoming Encounters Date Type Department Care Team (Late st Contact Info) Description 08/06/2025 9:30 AM EDT Clinical Support [facility] Head[facility] Neck & Respiratory 800 [facility], 2nd [place] [address] 08/06/2025 9:50 AM EDT Office Visit [facility] Head[facility] Neck & Respiratory 800 [facility], 2nd [place] [address] Crystal Viera MD 800 [facility] [address] [place] [address] 08/06/2025 11:30 AM EDT Appointment PAV H Infusion 800 [place] [address] 09/14/2025 9:00 AM EST Appointment PAV H Radiology [address] [place] [address] 09/14/2025 10:00 AM EST Office Visit [facility] Head[facility] Neck & Respiratory 800 [facility], 2nd [place] [address] Yves Cantor MD [address] [facility] [address] [place] [address] 09/14/2025 11:00 AM EST Appointment PAV CC Radiation 800 [facility]. [id number] [place] [address] Inna Chowdary MD [address] [place] [address] [address] [place] [address] 09/17/2025 10:30 AM EST Office Visit [facility] Head, Neck & Respiratory 800 [facility] 2nd [place] [address] Crystal Viera MD [address] [place] [address] [facility] [address] [place] [address] 09/29/2025 2:20 PM EST Office Visit [place] [facility] Medicine [facility] [address], 2nd [place] [address] Dio Burger MD 800 [place], [place] [phone] documented as of this encounter Visit Diagnoses [...] documented as of this encounter Care Teams Manager Oracle Retail Relationship Specialty Start Date End Date Tapan Hill MD [address] [place] [address] PCP - General 03/11/21 Inna Chowdary MD [address] [place] [address] Consulting Physician Radiation Therapy 06/15/25 documented as of this encounter
--- OUTSIDE RECORDS SUMMARY | 2025-07-29 13:00 | XMS_ITS ---
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 06/15/2025 CINV (chemotherapy-induced nausea and vomiting) 06/15/2025 Maisonneuve fracture 04/09/2025 Fracture (healed) treatment follow-up 03/29/2025 Overview (06/15/2025): Non weight bearing until approximately 06/09/25 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 01/27/2025 Biventricular cardiac pacemaker in [...] (1983) with adjuvant XRT S/P left neck dissection [...] CT Head and CTA were reviewed using [email or web address] and discussed with attending environmental scientists - tPA was not administered as the [...] (07/14/2024): Description: sigmoid, pedunculated, removed completely in [place] 01/2016 Description: sigmoid, pedunculated, removed completely in [place] 01/2016 Current Treatment and Therapy Plans Pembrolizumab Every 42 Days* Plan Start Date:06/23/2025 Plan Provider:Crystal Viera MD Linked Problems Cancer of oral cavityHypothy roidism due to medicaments and other exogenous substances Treatment Medications Current Day (Day 1 , Cycle 2 - Planned for 08/06/2025) Next Day (Day 1, Cycle 3 - Planned for 09/17/2025) pembrolizumab (Keytruda)pembrolizumab (Keytruda) IVPB pembrolizumab (Keytruda) 400 mg in sodium chloride 0.9% 100 mL IVPB pembrolizumab (Keytruda) 400 mg in sodium chloride 0.9% 100 mL IVPB Past Treatment and Therapy Plans No past plan information found. Lifetime Dose Tracking * Chemical Lifetime Dose Automatic Entry Manual Entr y Fluoro Time 3.6 minutes 3.6 minutes 0 minutes Air Kerma 6.2 mGy 6.2 mGy 0 mGy Resolved Problems Problem Noted Date Diagnosed Date [...]
--- OUTSIDE RECORDS SUMMARY | 2025-07-29 13:00 | XMS_ITS | Encounter Summary ---
Author Organization [facility] Address [address] [place] [id number] Care Team Providers Care Diesel Engine Pipe Fitter Name Role Phone Tapan Hill MD Primary Care Provid er Inna Chowdary MD [facility] [phone] Encounter Details Date Type Department Care Team (Latest Contact Info) Description 06/22/2025 Travel Social History Tobacco Use Types Packs/Day [...] 1:20 PM EDT Adonay Mejias K * Calculated C-SSRS Risk Score (Lifetime/Recent) Answer Date of Assessment Author No Risk Indicated 06/22/2025 7:36 PM EDT Alessandra Berry RN * Question Answer Date of Assessment Author 1. Wish to be (Past 1 Month) No 06/22/2025 7:36 PM EDT Alessandra Hui, RN 2. Non-Specific Active Suici aneta Thoughts [...] Pav CC Head, Neck & Respiratory 800 [facility], [address] [place] [address] 08/06/2025 9:50 AM EDT Office Visit Pav CC Head, Neck & Respiratory 800 [facility], 2nd [place] [address] Crystal Viera MD [address] [place] [address] [address] 08/06/2025 11:30 AM EDT Appointment PAV H Infusion 800 [place] [address] 09/14/2025 9:00 AM EST Appointment PAV H Radiology [address] [place] [address] 09/14/2025 10:00 AM EST Office Visit Pav CC Head, Neck & Respiratory 800 [facility], 2nd [place] [address] Yves Cantor MD [address] [facility] [address] [place] [address] 09/14/2025 11:00 AM EST Appointment PAV CC Radiation 800 [facility]. [address] [place] [address] Inna Chowdary MD 800 [facility] [address] [place] [address] 09/17/2025 10:30 AM EST Office Visit Pav CC Head, Neck & Respiratory 800 [facility], 2nd [place] [address] Crystal Viera MD 800 [facility] [address] [place] [address] 09/29/2025 2:20 PM EST Office Visit [place] Clinic Medicine Specialties [address], 2nd [place] [address] Dio Burger MD 800 [place], [place] [phone] documented as of this encounter Visit Diagnoses [...] documented as of this encounter Care Teams Diesel Engine Pipe Fitter Relationship Specialty Start Date End Date Tapan Hill MD [address] [place] [address] PCP - General 03/11/21 Inna Chowdary MD [address] [place] [address] Consulting Physician Radiation Therapy 06/15/25 documented as of this encounter
--- OUTSIDE RECORDS SUMMARY | 2025-07-29 13:00 | XMS_ITS | Encounter Summary ---
Author Organization [facility] Address [address] [place] [address] Care Team Providers Care Television Receiver Analyzer Name Role Phone Tapan Hill MD Primary Care Provid er Inna Chowdary MD [facility] [phone] Reason for Visit * Reason Onset Date Comments Med Refill 07/03/2025 Encounter Details Date Type Department Care Team (Late st Contact Info) Description 07/03/2025 Refill Pav [facility] Head, Neck & Respiratory [address], 2nd [place] [address] Tiffanie Galicia RN [facility] Social History Tobacco Use Types Packs/Day Years [...] Author No 04/15/2021 1:20 PM EDT RandellAdonay mma K * Because of a physical, [...] [facility] CC Head, Neck & Respiratory 800 [facility] [address]nd [place] [address] 08/06/2025 9:50 AM EDT Office Visit [facility] Head[facility] Neck & Respiratory [address] [address] Crystal Viera MD 800 [facility] 134 [place] [address] 08/06/2025 11:30 AM EDT Appointment PAV H Infusion 800 [place] [address] 09/14/2025 9:00 AM EST Appointment PAV H Radiology 800 [place] [address] 09/14/2025 10:00 AM EST Office Visit [facility] Head, Neck & Respiratory 800 [facility] [address] [place] [address] Yves Cantor MD [address] [facility] [address] [place] [address] 09/14/2025 11:00 AM EST Appointment PAV CC Radiation 800 [facility]. [address] [place] [address] Inna Chowdary MD 800 [facility] [address] [place] [address] 09/17/2025 10:30 AM EST Office Visit [facility] CC Head, Neck & Respiratory 800 [facility], 2nd [place] [address] Crystal Viera MD 800 [facility] [address] [place] [address] 09/29/2025 2:20 PM EST Office Visit [place] [facility] Medicine Special[facility] [address], [address]nd [place] [address] Dio Burger MD 800 [place], [place] [phone] documented as of this encounter Visit Diagnoses [...] documented as of this encounter Care Teams Television Receiver Analyzer Relationship Specialty Start Date End Date Tapan Hill MD [address] [place] [address] PCP - General 03/11/21 Inna Chowdary MD 800 [facility] [address] [place] [address] Consulting Physician Radiation Therapy 06/15/25 documented as of this encounter
--- OUTSIDE RECORDS SUMMARY | 2025-07-29 13:00 | XMS_ITS | Encounter Summary ---
Author Organization [facility] Address [address] [id number] Care Team Providers Care Ticket Speculator Name Role Phone Tapan Hill MD Primary Care Provid er Inna Chowdary MD [facility] [phone] Encounter Details Date Type Department Care Team (Latest Contact Info) Description 06/24/2025 Travel Social History Tobacco Use Types Packs/Day [...] [facility] Head, Neck & Respiratory [address] [address] 08/06/2025 9:50 AM EDT Office Visit Pav CC Head, Neck & Respiratory [address] [address] Crystal Viera MD 800 [facility] 134 [place] [address] 08/06/2025 11:30 AM EDT Appointment PAV H Infusion 800 [place] [address] 09/14/2025 9:00 AM EST Appointment PAV H Radiology 800 [place] [address] 09/14/2025 10:00 AM EST Office Visit [facility] Head, Neck & Respiratory [address] [address] Yvse Cantor MD [address] [facility] [address] [place] [address] 09/14/2025 11:00 AM EST Appointment PAV CC Radiation 800 [facility]. [address] [place] [address] Inna Chowdary MD 800 [facility] [address] [place] [address] 09/17/2025 10:30 AM EST Office Visit Pav CC Head, Neck & Respiratory 800 [facility], 2nd [place] [address] Crystal Viera MD [address] [facility] Tamara [facility] [address] [place] [address] 09/29/2025 2:20 PM EST Office Visit [place] [facility] Medicine [facility] [address], [address] [place] [address] Dio Burger MD 800 [place], [place] [address] documented as of this encounter Visit Diagnoses [...] documented as of this encounter Care Teams Ticket Speculator Relationship Specialty Start Date End Date Tapan Hill MD [address] [place] [address] PCP - General 03/11/21 Inna Chowdary MD 800 [facility] [address] [place] [address] Consulting Physician Radiation Therapy 06/15/25 documented as of this encounter
--- OUTSIDE RECORDS SUMMARY | 2025-07-29 13:00 | XMS_ITS | Encounter Summary ---
Author Organization [facility] Address [address] [place] [address] Care Team Providers Care Cancer Registry Coordinator Name Role Phone Tapan Hill MD Primary Care Provid er Inna Chowdary MD [facility] [phone] Encounter Details Date Type Department Care Team (Late st Contact Info) Description 07/14/2025 Telephone Psych Oncology [address] [place] [phone] Social History Tobacco Use [...] 04/15/2021 1:20 PM EDT Randell Adonay scarlett Edna documented in this encounter Miscellaneous Notes * Telephone Encounter - Iesha Lozano RD - 07/14/2025 2:13 PM EDT Reason for call: jevity Referral source: Palliative Wt Readings from Last 3 Encounters: 07/13/25 83.3 kg (183 lb 10.3 oz) 06/24/25 83.4 kg (183 lb 13.8 oz) 06/22/25 79.4 kg (175 lb) Estimated body mass index is 26.35 kg/m?? as calculated from the following: Height as of 07/13/25: 1.778 m (5' 10 ). Weight as of 07/13/25: 83.3 kg (183 lb 10.3 oz). Call details: Received message from Palliative that pt was having issues getting Jevity 1.5. Chart reviewed. Established with [facility] RD, last encounter 06/16. Unavailable at time of call. Non-urgent VM left explaining reason for call and encouraging to call back. RD remains available PRN. documented in this encounter Plan of Treatment Upcoming Encounters Date Type Department Care Team (Late st Contact Info) Description 08/06/2025 9:30 AM EDT Clinical Support [facility] 800 [facility], 2nd [place] [address] 08/06/2025 9:50 AM EDT Office Visit [facility] Res[facility] 800 [facility] 2nd [place] [phone] Crystal Virea MD [address] [place] [phone] 08/06/2025 11:30 AM EDT Appointment P[facility] H Infusion [address] [place] [phone] 09/14/2025 9:00 AM EST Appointment [facility] Radiology [address] [place] [address] 09/14/2025 10:00 AM EST Office Visit [facility] [address] [phone] Yves Cantor MD [address] [facility] [address] [place] [address] 09/14/2025 11:00 AM EST Appointment [facility] Radiation 800 [facility]. [id number] [place] [address] Inna Chowdary MD [address] [place] [address] [address] [place] [address] 09/17/2025 10:30 AM EST Office Visit [facility] [address] [phone] Crystal Viera MD [address] [place] [phone] 09/29/2025 2:20 PM EST Office Visit [place] [facility] [address], [facility] [place] [address] Dio Burger MD 800 [place], [place] [phone] documented as of this encounter Visit Diagnoses [...] documented as of this encounter Care Teams Cancer Registry Coordinator Relationship Specialty Start Date End Date Tapan Hill MD [address] [place] [address] PCP - General 03/11/21 Inna Chowdary MD [address] [place] [phone] Consulting Physician Radiation Therapy 06/15/25 documented as of this encounter
--- OUTSIDE RECORDS SUMMARY | 2025-07-29 13:01 | XMS_ITS | Encounter Summary ---
Author Organization [facility] Address [address] [place] [address] Care Team Providers Care Transitions Manager Name Role Phone Tapan Hill MD Primary Care Provid er Encounter Details Date Type Department Care Team (Latest Contact Info) Description 06/14/2025 Travel Social History Tobacco Use Types Packs/Day [...] 04/15/2021 1:20 PM EDT Adonay Mejias scarlett Edna documented as of this encounter Mental Status * Because of a physical, mental, or emotional condition, do you have serious difficulty concentrating, remembering, or making decisions? (5 years old or older) Answer Entry Date Author No 04/15/2021 1:20 PM EDT Adonay Mejias scarlett Bishop documented in this encounter Plan of Treatment Upcoming Encounters Date Type Department Care Team (Late st Contact Info) Description 08/06/2025 9:30 AM EDT Clinical Support [facility] [address] [address] 08/06/2025 9:50 AM EDT Office Visit [facility] [address] [address] Crystal Viera MD 800 [facility] [address] [place] [address] 08/06/2025 11:30 AM EDT Appointment [facility] Infusion 800 [place] [address] 09/14/2025 9:00 AM EST Appointment P[facility] H Radiology [address] [place] [address] 09/14/2025 10:00 AM EST Office Visit [facility] [address] [phone] Yves Cantor MD [address] [place] [phone] 09/14/2025 11:00 AM EST Appointment P[facility] CC Radiation 800 [facility]. HP[address]G [place] [phone] Inna Chowdary MD 800 [facility] [address] [place] [phone] 09/17/2025 10:30 AM EST Office Visit [facility] 800 [facility], 2nd [place] [address] Crystal Viera MD 800 [facility] [address] [place] [address] 09/29/2025 2:20 PM EST Office Visit [place] [facility] [address], 2nd [place] [address] Dio Burger MD 800 [place], [place] [phone] documented as of this encounter Visit Diagnoses [...] documented as of this encounter Care Teams Transitions Manager Relationship Specialty Start Date End Date Tapan Hill MD [address] [place] [address] PCP - General 03/11/21 documented as of this encounter
--- OUTSIDE RECORDS SUMMARY | 2025-07-29 13:01 | XMS_ITS | Encounter Summary ---
Author Organization [facility] Address [address] [place] [address] Care Team Providers Care Stretch Box Tender Name Role Phone Tapan Hill MD Primary Care Provid er Inna Chowdary MD [facility] [phone] Encounter Details Date Type Department Care Team (Late st Contact Info) Description 06/15/2025 Nutrition [facility] Res[facility] [address] , [address] [place] [phone] Iesha Lozano, JUANJOSE Social History Tobacco Use Types Packs/Day Years [...] 06/15/2025 10:26 AM EDT Jerrell de luna Louisa R * Question Answer Date of Assessment Author 1. Wish to be (Past 1 Month) No 025 10:26 AM EDT Km Roblesenix R 2. Non-Specific Active Suici aneta Thoughts (Past 1 Month) No 06/15/2025 10:26 AM EDT Krish Roblesnix R 6. Suicidal Behavior (Lifetime) No 10:26 AM EDT Merrill Roblesx R documented as of this encounter Mental Status * Because of a physical, mental, or emotional condition, do you have serious difficulty concentrating, remembering, or making decisions? (5 years old or older) Answer Entry Date Author No 04/15/2021 1:20 PM EDT Adonay Mejias documented in this encounter Miscellaneous Notes * Clinician Note - Iesha Lozano, JUANJOSE - 06/15/2025 11:57 AM EDT ONCOLOGY NUTRITION NOTE Patient Information Name: Loi Lux [id number] : 1940 Date of Service: 06/15/2025 Visit Type: Nutrition consult Referral source: [employer] Professional Jass Lux is a 85 y.o. male who was referred to [facility] dietitian for oncology nutrition counseling. Diagnosis Cancer Staging No matching staging information was found for the patient. Nutrition Assessment Anthropometrics: Wt Readings from Last 5 Encounters: 06/15/25 78.9 kg (174 lb) 03/11/24 76.5 kg (168 lb 10.4 oz) 03/03/24 75.7 kg (166 lb 14.2 oz) 08/30/23 76.4 kg (168 lb 6.9 oz) 08/23/23 76.2 kg (167 lb 15.9 oz) Ht Readings from Last 1 Encounters: 06/03/25 1.778 m (5' 10 ) BMI Readings from Last 1 Encounters: 06/15/25 24.97 kg/m?? Biochemical: Lab Results Component Value Date RBC 3.69 (L) 04/02/2024 WBC 6.03 04/02/2024 HGB 12.4 (L) 04/02/2024 HCT 36.2 (L) 04/02/2024 PLT 205 04/02/2024 Lab Results Component Value Date GLUCOSE 71 04/02/2024 NA 142 04/02/2024 K 4.4 04/02/2024 CO2 28 04/15/2021 CL 105 04/02/2024 CALCIUM 9.3 04/02/2024 BUN 16 04/02/2024 CREATININE 0.80 04/02/2024 Lab Results Component Value Date PHOS 3.0 10/19/2021 Lab Results Component Value Date TRIG 99 04/11/2021 ALBUMIN 4.20 06/14/2022 HGBA1C 5.50 03/23/2022 Lab Results Component Value Date ALT 25 06/14/2022 AST 24 06/14/2022 ALKPHOS 62 04/10/2021 BILITOT 0.3 06/14/2022 Malnutrition Screening PG-SGA (SF) -(Additive Score box 1-4): (!) (Patient-Rptd) 13 (06/01/2025 12:54 PM) (Malnutrition Risk - Low: 0-3, Moderate: 4-8, High: 9+) Interval History: 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 Pt spouse spoke with [facility] DANITA and inquired about feeding pump. Visited pt and family members in clinic. Bolus feeding 6 cartons of Jevity 1.5 over 4 feedings/day.States they were doing 3 feedings/day but then were told to do 4/day d/t blood glucose. Unsure of what BG was when change was made. Wants continuous pump to feed on days when spouse has appts or is not home. Set up with [facility]. Requests order for more blue tape. Nutrition Intervention Discuss pt likely not eligible for coverage of continuous pump. Discussed feeding with gravity bag and pole. Agreeable to trying. New orders entered and sent to [facility]. Patient referred to [facility] ([facility] - [phone]) by [facility] Dietitian. RD contact information was provided and pt was encouraged to contact with additional nutrition-related questions/concerns PRN. documented in this encounter Plan of Treatment Upcoming Encounters Date Type Department Care Team ([facility] st Contact Info) Description 08/06/2025 9:30 AM EDT Clinical Support [facility] Res[facility] [address] [phone] 08/06/2025 9:50 AM EDT Office Visit [facility] Respiratory [address] [address] Crystal Viera MD 800 [facility] [address] [place] [address] 08/06/2025 11:30 AM EDT Appointment P[facility] H Infusion [address] [place] [address] 09/14/2025 9:00 AM EST Appointment PAV H Radiology [address] [place] [address] 09/14/2025 10:00 AM EST Office Visit [facility] [address] [address] Yves Cantor MD [address] [place] [address] 09/14/2025 11:00 AM EST Appointment PAV CC Radiation 800 [facility]. HL246V [place] [address] Inna Chowdary MD 800 [facility] [address] [place] [phone] 09/17/2025 10:30 AM EST Office Visit [facility] Res[facility] 800 [facility], 2nd [place] [address] Crystal Viera MD 800 [facility] [address] [place] [address] 09/29/2025 2:20 PM EST Office Visit [place] [facility] [address], [address] [place] [address] Dio Burger MD 800 [place], [place] [phone] documented as of this encounter Visit Diagnoses [...] documented as of this encounter Care Teams Stretch Box Tender Relationship Specialty Start Date End Date Tapan Hill MD [address] [place] [address] PCP - General 03/11/21 Inna Chowdary MD [address] [facility] [address] [place] [address] Consulting Physician Radiation Therapy 06/15/25 documented as of this encounter
--- OUTSIDE RECORDS SUMMARY | 2025-07-29 13:01 | XMS_ITS | Encounter Summary ---
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 [employer] Not on file Not on file Not o n file documented as of this encounter Plan of Treatment Upcoming Encounters Date Type Department Care Team (Late st Contact Info) Description 08/12/2025 2:30 PM EDT Office Visit [facility] CARDIOLOGY [address] [facility] [address] [place] [phone] Francy Mclean PA-C [address] [facility] [address] [place] [address] 06/02/2026 11:00 AM EDT Appointment [facility] [address] [facility] [address] [place] [phone] 06/02/2026 1:00 PM EDT Office Visit [facility] NEUROSURGERY [address] [facility] [address] [place] [phone] Salvador Snow MD [address] [facility] [address] [place] [address] 07/13/2026 1:15 PM EDT Office Visit [facility] CARDIOLOGY [address] [facility] [address] [place] [phone] Fortunato Watters MD [address] [facility] [address] [place] [address] documented as of this encounter Visit Diagnoses Not on filedocumented in this encounter Care Teams Remote Ruby On Rails Developer Relationship Specialty Start Date End Date Natalia Gleason MD PCP - General 06/28/25 documented as of this encounter
--- OUTSIDE RECORDS SUMMARY | 2025-07-29 13:01 | XMS_ITS | Encounter Summary ---
Author Organization [facility] Address [address] [id number] Care Team Providers Care Swimming Professor Name Role Phone Tapan Hill MD Primary Care Provid er Inna Chowdary MD [facility] [phone] Encounter Details Date Type Department Care Team (Latest Contact Info) Description 06/17/2025 Travel Social History Tobacco Use Types Packs/Day [...] [facility] Res[facility] [address] [address] 08/06/2025 9:50 AM EDT Office Visit [facility] Res[facility] [address] [address] Crystal Viera MD 800 [facility] [address] [place] [address] 08/06/2025 11:30 AM EDT Appointment P[facility] H Infusion 800 [place] [address] 09/14/2025 9:00 AM EST Appointment P[facility] H Radiology 800 [place] [address] 09/14/2025 10:00 AM EST Office Visit [facility] [address] [address] Yves Cantor MD [address] [facility] [address] [place] [address] 09/14/2025 11:00 AM EST Appointment P[facility] CC Radiation [address] [facility]. [address] [place] [phone] Inna Chowdary MD 800 [facility] [address] [place] [address] 09/17/2025 10:30 AM EST Office Visit [facility] Head[facility] Neck [facility] Respiratory [address] [facility], 2nd [place] [address] Crystal Viera MD [address] [facility] [address] [facility] [address] [place] [address] 09/29/2025 2:20 PM EST Office Visit [place] [facility] [address], [address] [place] [address] Dio Burger MD 800 [place], [place] [phone] documented as of this encounter Visit Diagnoses [...] documented as of this encounter Care Teams Swimming Professor Relationship Specialty Start Date End Date Tapan Hill MD [address] [place] [address] PCP - General 03/11/21 Inna Chowdary MD 800 [facility] [address] [place] [address] Consulting Physician Radiation Therapy 06/15/25 documented as of this encounter
--- OUTSIDE RECORDS SUMMARY | 2025-07-29 13:01 | XMS_ITS | Clinical Summary ---
[facility] Organization [facility] Address [address] [place] [address] Care Team Providers Care Job Printer Apprentice Name Role Phone Natalia Gleason MD Primary Care Provider Unavai lable Allergies No known active allergies Medications polyethylene glycol (MIRALAX) 17 g packet 17 g Daily As Needed (constipation). Active HYDROcodone-acet aminophen (NORCO) 7.5-325 MG per tabletIndication s:Coronary artery disease of [place] artery of [place] heart with stable angina pectoris Take 1 tablet by mouth Every 4 (Four) Hours As Needed for Moderate Pain . 25 tablet 1:44 PM EST 10/24/20 21 Active Additional Information Patient taking differently:1 tabletPer G TubeEvery 4 Hours PRN, Moderate Pain, Reported on 06/30/2025 aspirin 81 MG chewable tablet Administer 1 tablet per G tube Daily. Active apixaban (Eliquis) 5 MG tablet tabletIndication s:Atrial Fibrillation - requiring full anticoagulation, restart 04/10/24 Take 1 tablet by mouth Every 12 (Twelve) Hours. 180 tablet 3 11/30/19 22 Active hydrOXYzine (ATARAX) 25 MG tablet Administer 2 tablets per G tube At Night As Needed (sleep). Active atorvastatin (LIPITOR) 80 MG tablet Take 1 tablet by mouth Daily. Active acetaminophen (TYLENOL) 325 MG tablet Take 2 tablets by mouth Every 6 (Six) Hours As Needed. Active aluminum-magnesi um hydroxide-simeth icone (MAALOX/MYLANTA) 200-200-20 MG/5ML suspension Take 30 mL by mouth Every 6 (Six) Hours As Needed. Active bisacodyl (DULCOLAX) 10 MG suppository Insert 1 suppository into the rectum Daily. 01/17/20 25 Active carboxymethylcel lulose sod, PF, 1 % gel eye gel Inject 1 drop into the eye. 03/30/20 25 Active Cetirizine HCl Childrens Alrgy 1 MG/ML solution solution 10 mL by Enteral route. 03/29/20 25 Active doxazosin (CARDURA) 1 MG tablet 1 tablet by Enteral route. 01/18/20 25 Active finasteride (PROSCAR) 5 MG tablet 1 tablet by Enteral route. 01/17/20 25 Active Multi-Vitamin tablet tablet 1 tablet by Enteral route Daily. Active ondansetron (ZOFRAN) 4 MG tablet 1 tablet by Enteral route Every 12 (Twelve) Hours As Needed. 03/30/20 25 Active Triamcinolone Acetonide (NASACORT) 55 MCG/ACT nasal inhaler Administer 1 spray into the nostril(s) as directed by provider Daily. 01/08/20 25 Active bisoprolol (ZEBeta) 5 MG tablet 0.5 tablets by Enteral route. 03/31/20 25 Active Enoxaparin Sodium (LOVENOX) 80 MG/0.8ML solution prefilled syringe syringe Inject 0.8 mL under the skin into the appropriate area as directed Take As Directed. 2.4 mL 12/04/19 25 025 Discontinue d(Patient Reported Not Taking) bisoprolol-hydro chlorothiazide (ZIAC) 5-6.25 MG per tablet Take 0.5 tablets by mouth Daily. 03/04/20 25 025 Discontinue d(Alternate therapy) FIBER PO 240 mL by Enteral route. 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) 07/04/2022 Paroxysmal atrial fibrillation post-op after CAB G 02/21/2022 After cataract of right eye not obscuring vision 01/04/2022 Age-related nuclear cataract of left eye 022 Cerebral infarction due to u nspecified occlusion or stenosis of other cerebral artery 01/04/2022 Presbyopia 01/04/2022 Pseudophakia of right eye 01/04/2022 MCCULLOUGH (retinal artery occlusion) 01/04/2022 Regular astigmatism of both eyes 01/04/2022 Coronary artery disease invo lving [place] coronary artery of [place] heart without angina pectoris 10/18/2021 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 (10/18/2021) 09/19/2021 Squamous cell cancer of tongue 09/16/2021 Cardiomyopathy, ischemic 09/16/2021 Chronic systolic (congestive) heart failure 08/29 Left anterior cerebral artery CVA 04/29/2021 Essential hypertension 04/29/2021 History of CVA (right parietal & occipital, left MCA) 04/29/2021 Alcohol use 04/29/2021 HFrEF (EF <20%) 04/29/2021 H/O SCCA 04/29/2021 Overview (04/29/2021): S/P right glossectomy & right neck dissection (1983) with adjuvant XRT S/P left neck dissection (08/25/20) 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 04/29/2021 Overview (04/29/2021): S/P rectus abdominis free flap & iliac crest bone graft (data deficit) Bilateral carotid artery harman nosis, R > L s/p right stent placement (04/2021) 04/29/2021 Former smoker 04/29/2021 CVA (cerebrovascular accident) 04/29/2021 Dyslipidemia 04/11/2021 Overview (11/28/2021): - atorvastatin 40mg PO Ataxia 04/10/2021 Overview (04/10/2023): # focal deficits concerning for acute ischemic [...] CT Head and CTA were reviewed using [email or web address] and discussed with attending quarry extraction worker - tPA was not administered as the [...] following discharge for management of comorbid conditions Foot drop, left 05/08/2018 History of colon polyps 03/19/2017 Lumbar degenerative disc disease 06/28/2016 Lumbar radiculopathy 06/28/2016 Abdominal pain 06/08/2016 Lumbar back pain 06/08/2016 Dysplastic colon polyp 03/19/2016 Overview (04/10/2023): Description: sigmoid, pedunculated, removed completely in [place] 01/2016 History of small bowel obstruction 12/18/2015 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 He requries a pureed/blenderized diet. Bowel obstruction 12/06/2015 Encounters Date Type Department Care Team Description 06/30/2025 1:30 PM EDT Office Visit [facility] [address] [place] [phone] Latih Oliveira PA-C Cardiomyopathy, ischemic (Primary Dx); Presence of biventricular implantable cardioverter-defibril lator (ICD); Paroxysmal atrial fibrillation post-op after CABG; Essential hypertension 06/30/2025 Travel 06/08/2025 2:30 PM EDT Office Visit [facility] [address] [place] [id number] Salvador Snow MD Carotid stenosis, asymptomatic, bilateral (Primary Dx) 06/08/2025 8:56 AM EDT - 06/08/2025 11:59 PM EDT Hospital Encounter [facility] [address] [place] [address] Salvador Snow MD Carotid stenosis, asymptomatic, bilateral Discharge Disposition: Home or Self Care 06/08/2025 Travel from Last 3 Months Immunizations Immunization Administration Dates Next Due Flu Vaccine Split Quad 07/05/2020 Fluzone High-Dose 65+YRS 09/12/2022,06/24/2019 Fluzone High-Dose 65+yrs 07/25/2021,07/05/2020,0 06/24/2019 Tdap 05/21/2020 Family History Medical History Relation Name Comments Arrhythmia Brother 1 Arnaud Jose J Heart attack Brother 1 Arnaud Jose J Heart disease Brother 1 Arnaud Jose J Hypertension Brother 1 Arnaud Jose J Heart disease Brother 2 Sundar Jose J Hyperlipidemia Brother 2 Sundar Jose J Hypertension Brother 2 Sundar Jose J Heart disease Brother 3 RayRaymond Jose J Hypertension Brother 3 RayRaymond Jose J Heart disease Father Fern Jose J Heart failure Father Fern Jose J Hyperlipidemia Father Fern Jose J Hypertension Father Fern Jose J No Known Problems Maternal Grandfather No Known Problems Maternal Grandmother Arthritis Mother Marlee Lux Heart disease Mother Marlee Lux No Known Problems Paternal Grandfather No Known Problems Paternal Grandmother Arthritis Sister 1 Bunlarisa Nuenschwander Autoimmune disease Sister 1 Bunlarisa Nuenschwander Heart disease Sister 1 Usama Rodrigueznder Relation Name Status Comments Brother 1 Arnaud Lux Alive Brother 2 Sundar Lux Alive Brother 3 Shanika Lux Alive Father Kisha Lux Maternal Grandfather Maternal Grandmother Mother Marlee Lux Paternal Grandfather Paternal Grandmother Sister 1 Usama Wallaceer Alive Sister 2 Alive Sister 3 Alive Sister 4 Alive Social History Tobacco Use Types Packs/Day Years [...] Industry Job Start Date Job End Date [employer] [facility] [employer] Not on file Not on file Not o n file Last Filed Vital Signs Vital Sign Reading Time Taken Comments Blood Pressure 140/78 06/30/2025 1:16 PM EDT Pulse 79 06/30/2025 1:16 PM EDT Temperature 36.3 C (97.3 F) 06/08/2025 2:10 PM EDT Respiratory Rate 16 04/08/2024 10:05 AM EDT Oxygen Saturation 97% 06/30/2025 1:16 PM EDT Inhaled Oxygen Concentration - - Weight 83 kg (183 lb) 06/30/2025 1:16 PM EDT Height 177.8 cm (5' 10 ) 06/30/2025 1:16 PM EDT Body Mass Index 26.26 06/30/2025 1:16 PM EDT Plan of Treatment Upcoming Encounters Date Type Department Care Team (Late st Contact Info) Description 08/12/2025 2:30 PM EDT Office Visit [facility] [address] [place] [phone] Francy Mclean PA-C [address] [facility] [address] [place] [address] 06/02/2026 11:00 AM EDT Appointment [facility] [address] [place] [address] 06/02/2026 1:00 PM EDT Office Visit [facility] [address] [place] [address] Salvador Snow MD [address] [facility] [address] [place] [address] 07/13/2026 1:15 PM EDT Office Visit [facility] [address] [place] [address] Fortunato Watters MD [address] [facility] [address] [place] [address] Health Maintenance Due Date Last Done Comments ZOSTER VACCINE (1 of 2) 02/22/1990 RSV Vaccine - Adults (1 - 1- dose 75+ series) 02/22/2015 ANNUAL WELLNESS VISIT 04/30/2021 INFLUENZA VACCINE 05/29/2025 07/08/2024, , 09/12/2022, Additional history exists COVID-19 Vaccine (2023-2 5 season) 2025 07/08/2024, 08/07/2023, 09/20/2022, Additional history exists LIPID PANEL 01/24/2026 01/24/2025, 04/29, 06/14/2022, Additional history exists TDAP/TD VACCINES (2 - Td or Tdap) 05/21/2030 020 Pneumococcal Vaccine 50+ Completed 08/02/2023 Medical Devices Implanted Type Area Cloth Shearing Supervisor Device Identifier Shelf Expiration Date Model / Serial / Lot Gen Defib Vigilant Crtd X4 Is4 Df4 - [id number] - [id number] Implanted:Qty: 1 on 03/24/2022 by Fortunato Watters MD at [facility] ICD Left: Heart [employer] 11/22/2023 [id number] / [id number] / Clipapplr M/ Endo Ligaclip 9 3/8in Sm - [id number] Implanted:Qty: 1 on 10/18/2021 by Keo Azul MD at [facility] Implant Right: Leg [employer] OF J AND J 07/03/2025 [id number] / / Reymundo Jacome Radiomark Disk Ro [place] - [id number] Implanted:Qty: 2 on 10/18/2021 by Keo Azul MD at [facility] Implant N/A: Heart [employer] 10/03/2024 [id number] / / Env Pm Aigisrx Antibac Resorb 2.9x3.3in Lg - [id number] Implanted:Qty: 1 on 03/24/2022 by Fortunato Watters MD at [facility] Implant Left: Chest [employer] 12/19/2022 [id number] / / [id number] Ld Defib Reliance4/Front 1coil Act 64cm - [id number] - [id number] Implanted:Qty: 1 on 03/24/2022 by Fortunato Watters MD at [facility] Lead [employer] 11/25/2023 [id number] / [id number] / Ld Acuity X4 Str 86cm - [id number] - [id number] Implanted:Qty: 1 on 03/24/2022 by Fortunato Watters MD at [facility] Lead Left: Heart [employer] 08/26/2023 [id number] / [id number] / Ld Pace Ingevitypls Mri Act/Fix Bipol Atrial/Vnt Str 52cm - [id number] - [id number] Implanted:Qty: 1 on 03/24/2022 by Fortunato Watters MD at [facility] Lead Left: Heart [employer] 12/01/2023 [id number] / [id number] / Stnt Carotid Xact Str 53c93ey - [id number] Implanted:Qty: 1 on 05/03/2021 by Salvador Snow MD at [facility] Stent [employer] [id number] / / [id number] Stnt Carotid Xact Tpr 10 To 8x40mm - [id number] Implanted:Qty: 1 on 05/03/2021 by Salvador Snow MD at [facility] Stent [employer] [id number] / / [id number] Procedures Procedure Name Priority Date/Time Associated Diagnosis Comments REMOTE DEVICE CHECK 07/16/2025 4:41 AM EDT DUPLEX CAROTID BILATERAL CAR - PERFORMED PROCEDURE Routine 06/08/2025 9:55 AM EDT Carotid stenosis, asymptomatic, bilateral HEART FAILURE MONITOR DEVICE CHECK 05/17/2025 4:41 AM EDT LIPID PANEL Routine 05/23/2023 1:34 PM EDT Hyperlipidemia, unspecified hyperlipidemia type Bilateral carotid artery stenosis, R > L s/p right stent placement (04/2021) Coronary artery disease involving [place] coronary artery of [place] heart without angina pectoris from Last 3 Months or Most Recently Relevant to Health Maintenance Results * Remote Device Check (07/16/2025 4:41 AM EDT) Date Time Interrogation Session [id number] [facility] Type Interrogation Session Remote Scheduled [facility] Implantable Pulse Generator Cloth Shearing Supervisor [employer] [facility] Implantable Pulse Generator Type FLASH OVEN OPERATOR-D [facility] Implantable Pulse Generator Model G247 [facility] Implantable Pulse Generator Serial Number [id number] [facility] Implantable Pulse Generator Implant Date 20220324 [facility] Battery Remaining Percentage 100.00 % [facility] Battery Remaining Longevity 96.0 mo [facility] Battery Status Beginning of Service [facility] Capacitor Charge Time 10.700 [facility] Sage Statistic RA Percent Paced 55.00 [facility] Sage Statistic RV Percent Paced 19.00 [facility] FLASH OVEN OPERATOR Statistic LV Percent Paced 100.00 [facility] Atrial Tachy Statistic AT/AF [place] Percent 0.00 [facility] Lead Channel RA Sensing Intrinsic Amplitude 1.900 [facility] Lead Channel Setting RA Sensing Sensitivity 0.25 [facility] Lead Channel RA Impedance Value 575 [facility] Lead Channel RA Pacing Threshold Amplitude 0.600 [facility] Lead Channel RA Pacing Threshold Pulse Width 0.4 [facility] Lead Channel RA Measurements Date and Time [id number] [facility] Lead Channel Setting RA Pacing Amplitude 2.000 [facility] Lead Channel Setting RA Pacing Pulse Width 0.4 [facility] Lead Channel Setting RV Sensing Sensitivity 0.60 [facility] Lead Channel RV Impedance Value 339 [facility] Lead Channel RV Pacing Threshold Amplitude 0.800 [facility] Lead Channel RV Pacing Threshold Pulse Width 0.4 [facility] Lead Channel RV Measurements Date and Time [id number] [facility] Lead Channel Setting RV Pacing Amplitude 2.000 [facility] Lead Channel Setting RV Pacing Pulse Width 0.4 [facility] Lead Channel LV Impedance Value 583 [facility] LV Lead Channel Measurements Date and Time [id number] [facility] Lead Channel Setting LV Pacing Amplitude 2.500 [facility] Lead Channel Setting LV Pacing Pulse Width 1.0 [facility] Sage Setting Mode (NBG Code) DDDR [facility] Ventricular chambers paced during FLASH OVEN OPERATOR pacing. LVOnly [facility] Sage Setting Lower Rate Limit 60 [facility] Sage Setting AT Mode Switch Rate 170 [facility] Sage Setting Maximum Tracking Rate 130 [facility] Sage Setting Maximum Sensor Rate 130 [facility] Sage Setting PAV Delay 140 [facility] Sage Setting YALA Delay 90 [facility] Therapy Statistic Recent Shocks Delivered 0 [facility] Therapy Statistic Recent Shocks Aborted 0 [facility] Therapy Statistic Recent ATP Delivered 0 [facility] SHOCK MEASURED IMPEDANCE 62 [facility] Lead Channel Setting RA Sensing Polarity Bipolar [facility] Lead Channel Setting RV Sensing Polarity Bipolar [facility] Lead Channel Setting RA Pacing Polarity Bipolar [facility] Lead Channel Setting RV Pacing Polarity Bipolar [facility] Lead Channel RA Pacing Threshold Polarity Bipolar [facility] Lead Channel RV Pacing Threshold Polarity Bipolar [facility] Lead Channel LV Pacing Threshold Polarity Unipolar [facility] Zone Setting Type Category VF [facility] IDC RATE 1 220 [facility] THERAPIES Burst,41J,41J,41J x 6 [facility] Zone Setting Status On [facility] Zone ID 1 [facility] Zone Setting Type Category VT [facility] IDC RATE 1 180 [facility] Zone Setting Status Monitor [facility] Zone ID 2 [facility] 07/16/2025 4:41 AM EDT us Fortunato Watters MD CV IMPLANTABLE CARDIAC DEVICE Fi nal Result [facility] * DUPLEX CAROTID BILATERAL CAR - PERFORMED [...] acoustic window from neck procedures. us Salvador Snow MD CV VASCULAR ORDERABLES Final R esult * Heart Failure Monior Device Check (05/17/2025 4:41 AM EDT) Date Time Interrogation Session [id number] [facility] Type Interrogation Session Remote Device Initiated [facility] Implantable Pulse Generator Cloth Shearing Supervisor [employer] [facility] Implantable Pulse Generator Type FLASH OVEN OPERATOR-D [facility] Implantable Pulse Generator Model G247 [facility] Implantable Pulse Generator Serial Number [id number] [facility] Implantable Pulse Generator Implant Date 20220324 [facility] Battery Remaining Percentage 100.00 % [facility] Battery Remaining Longevity 102.0 mo [facility] Battery Status Beginning of Service [facility] Capacitor Charge Time 10.700 [facility] Sage Statistic RA Percent Paced 50.00 [facility] Sage Statistic RV Percent Paced 5.00 [facility] FLASH OVEN OPERATOR Statistic LV Percent Paced 99.00 [facility] Atrial Tachy Statistic AT/AF [place] Percent 0.00 [facility] Lead Channel RA Sensing Intrinsic Amplitude 2.000 [facility] Lead Channel Setting RA Sensing Sensitivity 0.25 [facility] Lead Channel RA Impedance Value 579 [facility] Lead Channel RA Pacing Threshold Amplitude 0.600 [facility] Lead Channel RA Pacing Threshold Pulse Width 0.4 [facility] Lead Channel RA Measurements Date and Time [id number] [facility] Lead Channel Setting RA Pacing Amplitude 2.000 [facility] Lead Channel Setting RA Pacing Pulse Width 0.4 [facility] Lead Channel Setting RV Sensing Sensitivity 0.60 [facility] Lead Channel RV Impedance Value 334 [facility] Lead Channel RV Pacing Threshold Amplitude 0.900 [facility] Lead Channel RV Pacing Threshold Pulse Width 0.4 [facility] Lead Channel RV Measurements Date and Time [id number] [facility] Lead Channel Setting RV Pacing Amplitude 2.000 [facility] Lead Channel Setting RV Pacing Pulse Width 0.4 [facility] Lead Channel LV Impedance Value 625 [facility] LV Lead Channel Measurements Date and Time [id number] [facility] Lead Channel Setting LV Pacing Amplitude 2.500 [facility] Lead Channel Setting LV Pacing Pulse Width 1.0 [facility] Sage Setting Mode (NBG Code) DDDR [facility] Ventricular chambers paced during FLASH OVEN OPERATOR pacing. LVOnly [facility] Sage Setting Lower Rate Limit 60 [facility] Sage Setting AT Mode Switch Rate 170 [facility] Sage Setting Maximum Tracking Rate 130 [facility] Sage Setting Maximum Sensor Rate 130 [facility] Sage Setting PAV Delay 140 [facility] Sage Setting AYLA Delay 90 [facility] Therapy Statistic Recent Shocks Delivered 0 [facility] Therapy Statistic Recent Shocks Aborted 0 [facility] Therapy Statistic Recent ATP Delivered 0 [facility] SHOCK MEASURED IMPEDANCE 72 [facility] Lead Channel Setting RA Sensing Polarity Bipolar [facility] Lead Channel Setting RV Sensing Polarity Bipolar [facility] Lead Channel Setting RA Pacing Polarity Bipolar [facility] Lead Channel Setting RV Pacing Polarity Bipolar [facility] Lead Channel RA Pacing Threshold Polarity Bipolar [facility] Lead Channel RV Pacing Threshold Polarity Bipolar [facility] Lead Channel LV Pacing Threshold Polarity Unipolar [facility] Zone Setting Type Category VF [facility] IDC RATE 1 220 [facility] THERAPIES Burst,41J,41J,41J x 6 [facility] Zone Setting Status On [facility] Zone ID 1 [facility] Zone Setting Type Category VT [facility] IDC RATE 1 180 [facility] Zone Setting Status Monitor [facility] Zone ID 2 [facility] 05/17/2025 4:41 AM EDT us Fortunato Watters MD CV IMPLANTABLE CARDIAC DEVICE Fi nal Result [facility] * (ABNORMAL) Lipid Panel (05/23/2023 1:34 PM EDT) Total Cholesterol 118 0 - 200 mg/dL 05/23/2023 6:53 PM EDT [facility] Triglycerides 180(H) 0 - 150 mg/dL 05/23/2023 6:53 PM EDT [facility] HDL Cholesterol 36(L) 40 - 60 mg/dL 05/23/2023 6:53 PM EDT [facility] LDL Cholesterol 52 0 - 100 mg/dL 05/23/2023 6:53 PM EDT [facility] VLDL Cholesterol 30 5 - 40 mg/dL 05/23/2023 6:53 PM EDT [facility] LDL/HDL Ratio 1.28 05/23/2023 6:53 PM EDT [facility] Blood Venipuncture / Unknown 05/23/2023 1:34 PM EDT 05/23/2023 1:34 PM EDT Narrative [facility] - 05/23/2023 6:53 PM EDT Cholesterol Reference Ranges (U.S. Department of Health and Human Services ATP III Classifications) Desirable <200 mg/dL Borderline High 200-239 mg/dL High Risk >240 mg/dL Triglyceride Reference Ranges (U.S. Department of Health and Human Services ATP III Classifications) Normal <150 mg/dL Borderline High 150-199 mg/dL High 200-499 mg/dL Very High >500 mg/dL HDL Reference Ranges (U.S. Department of Health and Human Services ATP III Classifications) Low <40 mg/dl (major risk factor for CHD) High >60 mg/dl ('negative' risk factor for CHD) LDL Reference Ranges (U.S. Department of Health and Human Services ATP III Classifications) Optimal <100 mg/dL Near Optimal 100-129 mg/dL Borderline High 130-159 mg/dL High 160-189 mg/dL Very High >189 mg/dL Concepcion Hoff MD LAB BLOOD ORDERABLES Fi nal Result [facility]
[address] [place] [address], from Last 3 Months or Most Recently Relevant to Health Maintenance Insurance MEDICARE A & B HE[employer] C[employer] OPTIONS Advance Directives * CPR (Attempt to Resuscitate) (Latest Code Status on File) Date Activated Date Inactivated Comments 10/18/2021 11:33 AM 10/24/2021 4:36 PM Question Answer Comments Code Status (Patient has no pulse and is not breathing): CPR (Attempt to Resuscitate) Medical Interventions (Patie nt has pulse or is breathing): Full Support * CPR (Attempt to Resuscitate) Date Activated Date Inactivated Comments 05/06/2021 3:28 PM 05/09/2021 5:13 PM Question Answer Comments Code Status (Patient has no pulse and is not breathing): CPR (Attempt to Resuscitate) Medical Interventions (Patie nt has pulse or is breathing): Full Level Of Support Discussed With: Patient * CPR (Attempt to Resuscitate) Date Activated Date Inactivated Comments 04/30/2021 10:33 AM 05/06/2021 3:28 PM Question Answer Comments Code Status (Patient has no pulse and is not breathing): CPR (Attempt to Resuscitate) Medical Interventions (Patie nt has pulse or is breathing): Full Care Teams Job Printer Apprentice Relationship Specialty Start Date End Date Natalia Gleason MD PCP - General 06/28/25
--- OUTSIDE RECORDS SUMMARY | 2025-07-29 13:01 | XMS_ITS ---
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 He requries a pureed/blenderized diet. Bowel obstruction 12/06/2015 Current Treatment and Therapy Plans No current plan information found. Past Treatment and Therapy Plans No past plan information found. Lifetime Dose Tracking * Chemical Lifetime Dose Automatic Entry Manual Entr y Cumulative Air Kerma 1,346 mGy 0 mGy 1,346 m Gy
--- OUTSIDE RECORDS SUMMARY | 2025-07-29 13:01 | XMS_ITS | Encounter Summary ---
Author Organization [facility] Address [address] [id number] Care Team Providers Care Assistant Financial Accountant Name Role Phone Tapan Hill MD Primary Care Provid er Inna Chowdary MD [facility] [phone] Encounter Details Date Type Department Care Team (Latest Contact Info) Description 06/15/2025 Travel Social History Tobacco Use Types Packs/Day [...] No Risk Indicated 06/15/2025 10:26 AM EDT Km Escobarenix R * Question Answer Date of Assessment Author 1. Wish to be (Past 1 Month) No 025 10:26 AM EDT Merrill Roblesx R 2. Non-Specific Active Suici aneta Thoughts (Past 1 Month) No 06/15/2025 10:26 AM EDT Krish Robles oenix R 6. Suicidal Behavior (Lifetime) No 10:26 AM EDT Yung Robles R documented as of this encounter Mental [...] [facility] 800 [facility], [address] [place] [phone] 08/06/2025 9:50 AM EDT Office Visit [facility] Res[facility] 800 [facility], 2nd [place] [address] Crystal Viera MD 800 [facility] [address] [place] [address] 08/06/2025 11:30 AM EDT Appointment P[facility] H Infusion 800 [place] [address] 09/14/2025 9:00 AM EST Appointment [facility] Radiology 800 [place] [phone] 09/14/2025 10:00 AM EST Office Visit [facility] 800 [facility], 2nd [place] [phone] Yves Cantor MD [address] [facility] [address] [place] [phone] 09/14/2025 11:00 AM EST Appointment [facility] Radiation 800 [facility]. [id number] [place] [phone] Inna Chowdary MD 800 [facility] C[address]D [place] [address] 09/17/2025 10:30 AM EST Office Visit [facility] Res[facility] 800 [facility], 2nd [place] [phone] Crystal Viera MD 800 [facility] [address] [place] [phone] 09/29/2025 2:20 PM EST Office Visit [place] [facility] [address], 2nd [place] [address] Dio Burger MD 800 [place], [place] [phone] documented as of this encounter Visit Diagnoses [...] documented as of this encounter Care Teams Assistant Financial Accountant Relationship Specialty Start Date End Date Tapan Hill MD [address] [place] [address] PCP - General 5/14/21 Inna Chowdary MD [address] [place] [address] Consulting Physician Radiation Therapy 06/15/25 documented as of this encounter
--- OUTSIDE RECORDS SUMMARY | 2025-07-29 13:01 | XMS_ITS | Encounter Summary ---
Author Organization [facility] Address [address] [place] [address] Care Team Providers Care Soap Press Feeder Name Role Phone Tapan Hill MD Primary Care Provid er Inna Chowdary MD [facility] Encounter Details Date Type Department Care Team (Late st Contact Info) Description 06/16/2025 Telephone Psych Oncology 800 [place] [phone] Social History Tobacco Use [...] No 04/15/2021 1:20 PM EDT Randell, E scarlett K * Do you have serious [...] No 04/15/2021 1:20 PM EDT Randell Adonay Bishop documented in this encounter Miscellaneous Notes * Telephone Encounter - Iesha Lozano RD - 06/16/2025 9:12 AM EDT Reason for call: DME f/u Call details: Received call from [facility] customer operations representative at [place] office stating they got order from yesterday but pt is not on service with them. Contacted [facility] and [facility] Infusion. Pt not on service with either. Called and spoke with pt spouse, Ijeoma. She states pt is with [facility] out of [place] and providesphone number, . Call and speak with [facility] customer operations representative out of [place], [place]. Pt is on service with them. Provide fax no - [phone]. Faxed order for gravity bags, pole and tape. Called pt spouse and updated. No questions or concerns. Encouraged to contact as needed for nutrition-related questions and concerns. RD remains available PRN. Patient referred to [facility] ([facility] [phone]) by [facility] Dietitian. documented in this encounter Plan of Treatment Upcoming Encounters Date Type Department Care Team (Late st Contact Info) Description 08/06/2025 9:30 AM EDT Clinical Support [facility] Res[facility] 800 [facility], 2nd [place] [address] 08/06/2025 9:50 AM EDT Office Visit [facility] Res[facility] 800 [facility] 2nd [place] [address] Crystal Viera MD [address] [place] [phone] 08/06/2025 11:30 AM EDT Appointment [facility] H Infusion 800 [place] [phone] 09/14/2025 9:00 AM EST Appointment [facility] Radiology 800 [place] [address] 09/14/2025 10:00 AM EST Office Visit [facility] [address] [phone] Yves Cantor MD [address] [facility] [address] [place] [address] 09/14/2025 11:00 AM EST Appointment [facility] CC Radiation 800 [facility]. [id number] [place] [address] Inna Chowdary MD [address] [place] [address] [address]114D [place] [address] 09/17/2025 10:30 AM EST Office Visit [facility] [address] [phone] Crystal Viera MD [address] [place] [phone] 09/29/2025 2:20 PM EST Office Visit [place] [facility] [address], [facility] [place] [address] Dio Burger MD 800 [place], [place] [phone] documented as of this encounter Visit Diagnoses [...] documented as of this encounter Care Teams Soap Press Feeder Relationship Specialty Start Date End Date Tapan Hill MD [address] [place] [address] PCP - General 03/11/21 Inna Chowdary MD [address] [place] [phone] Consulting Physician Radiation Therapy 06/15/25 documented as of this encounter
--- OUTSIDE RECORDS SUMMARY | 2025-07-29 13:01 | XMS_ITS | Encounter Summary ---
Author Organization [facility] Address [address] [place] [address] Care Team Providers Care Rat Farmer Name Role Phone Tapan Hill MD Primary Care Provid er Encounter Details Date Type Department Care Team (Late st Contact Info) Description 06/11/2025 Telephone P[facility] CC Radiation 800 [facility]. [id number] [place] [address] Inna Chowdary MD [address] [place] [phone] Social History Tobacco Use Types Packs/Day Years [...] 1:20 PM EDT RandellAdonay mma K * Do you have serious [...] Date Author No 04/15/2021 1:20 PM EDT RandellAdonay mma K documented in this encounter Miscellaneous Notes * Telephone Encounter - Robin Lucio - 06/11/2025 10:56 AM EDT Pt's spouse returned call and confirmed appointment. documented in this encounter Plan of Treatment Upcoming Encounters Date Type Department Care Team ([facility] st Contact Info) Description 08/06/2025 9:30 AM EDT Clinical Support [facility] [address] [address] 08/06/2025 9:50 AM EDT Office Visit [facility] [address] [phone] Crystal Viera MD [address] [place] [address] [facility] [address] [place] [address] 08/06/2025 11:30 AM EDT Appointment [facility] H Infusion 800 [place] [address] 09/14/2025 9:00 AM EST Appointment P[facility] H Radiology 800 [place] [address] 09/14/2025 10:00 AM EST Office Visit [facility] Res[facility] 800 [facility], 2nd [place] [address] Yves Cantor MD [address] [facility] [address] [place] [address] 09/14/2025 11:00 AM EST Appointment PAV CC Radiation 800 [facility]. [id number] [place] [phone] Inna Chowdary MD 800 [facility] C114D [place] [address] 09/17/2025 10:30 AM EST Office Visit [facility] Respiratory 800 [facility], 2nd [place] [address] Crystal Viera MD 800 [facility] [address] [place] [address] 09/29/2025 2:20 PM EST Office Visit [place] [facility] [address], 2nd [place] [address] Dio Burger MD 800 [place], [place] [phone] documented as of this encounter Visit Diagnoses [...] documented as of this encounter Care Teams Rat Farmer Relationship Specialty Start Date End Date Tapan Hill MD [address] [place] [address] PCP - General 03/11/21 documented as of this encounter
--- OUTSIDE RECORDS SUMMARY | 2025-07-29 13:01 | XMS_ITS | Encounter Summary ---
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) Social History Tobacco Use Types [...] PM EDT Randell, E mma K * Are you blind or [...] 1:20 PM EDT Adonay Mejias K documented in this encounter Plan of Treatment Upcoming Encounters Date Type Department Care Team (Late st Contact Info) Description 08/06/2025 9:30 AM EDT Clinical Support [facility] Respiratory 800 [facility], [address] [place] [phone] 08/06/2025 9:50 AM EDT Office Visit [facility] Head[facility]ck [facility] Respiratory 800 [facility], 2nd [place] [phone] Crystal Viera MD 800 [facility] Tamara [address] [place] [phone] 08/06/2025 11:30 AM EDT Appointment P[facility] H Infusion 800 [place] [phone] 09/14/2025 9:00 AM EST Appointment P[facility] H Radiology 800 [place] [phone] 09/14/2025 10:00 AM EST Office Visit [facility] Respiratory 800 [facility], 2nd [place] [phone] Yves Cantor MD [address] [facility] [address] [place] [address] 09/14/2025 11:00 AM EST Appointment P[facility] CC Radiation 800 [facility]. [id number] [place] [phone] Inna Chowdary MD [address] [place] [address] [address]114D [place] [phone] 09/17/2025 10:30 AM EST Office Visit [facility] Neck [facility] Respiratory 800 [facility] 2nd [place] [phone] Crystal Viera MD [address] [place] [address] [facility] 134 [place] [phone] 09/29/2025 2:20 PM EST Office Visit [place] [facility] [address], 2nd [place] [phone] Dio Burger MD 800 [place] [address] documented as of this encounter Visit Diagnoses Diagnosis SCCA (squamous cell carcinoma) of skin- Primary documented in this encounter Additional Health Concerns Assessment Noted Time PHQ-9 Depression Total Score: 2 06/03/20 25 9:09 AM EDT A fall risk assessment has been complete d for the patient 06/15/2025 1:15 PM EDT A Body Mass Index follow-up plan has been documented for the patient 07/21/2024 10:08 AM EDT documented as of this encounter Care Teams Machining Manager Relationship Specialty Start Date End Date Tapan Hill MD 2002 [place] [address] PCP - General 03/11/21 Inna Chowdary MD [address] [place] [phone] Consulting Physician Radiation Therapy 06/15/25 documented as of this encounter
--- OUTSIDE RECORDS SUMMARY | 2025-07-29 13:01 | XMS_ITS | Encounter Summary ---
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[employer] Not on file Not on file Not o n file documented as of this encounter Plan of Treatment Upcoming Encounters Date Type Department Care Team (Late st Contact Info) Description 08/12/2025 2:30 PM EDT Office Visit [facility] [address] [facility] [address] [place] [phone] Francy Mclean PA-C [address] [facility] [address] [place], [place] [phone] 06/02/2026 11:00 AM EDT Appointment [facility] [address] [facility] [address] [place] [address] 06/02/2026 1:00 PM EDT Office Visit [facility] [address] [facility] [address] [place] [address] Salvador Snow MD [address] [facility] [address] [place] [address] 07/13/2026 1:15 PM EDT Office Visit [facility] [address] [address] [place] [address] Fortunato Watters MD [address] [facility] [address] [place] [address] documented as of this encounter Visit Diagnoses Not on filedocumented in this encounter Care Teams Claims Representative Relationship Specialty Start Date End Date Tapan Hill MD [address] [place] [address] PCP - General Family Medicine 04/29/21 06/08/25 documented as of this encounter
--- OUTSIDE RECORDS SUMMARY | 2025-07-29 13:01 | XMS_ITS | Encounter Summary ---
Author Organization [facility] Address [address] [place] [address] Care Team Providers Care Test Operator Name Role Phone Tapan Hill MD Primary Care Provid er Inna Chowdary MD [facility] [phone] Reason for Visit * Reason Comments Social Work/navigation Follow-up Encounter Details Date Type Department Care Team (Late st Contact Info) Description 06/16/2025 Social Work Psych Oncology 800 [place] [address] Venita Louis Social History Tobacco Use Types [...] * Progress Notes - Venita Louis - 06/16/2025 8:49 AM EDT Encounter Type: Email / MyChart Disease Status: Established Patient Clinic Location: [facility] Disease Type: Head & Neck Education Provided: Lodging Intervention Level: 2 Units (1 unit = 15 minutes): 2 Narrative: WASTEWATER ANALYST LAB ANALYST received call from pt disclosing pts appts had been changed and they no longer needed previously set up lodging. WASTEWATER ANALYST LAB ANALYST expressed understanding and was able to cancel vouchered stay and put voucher back in rotation. WASTEWATER ANALYST LAB ANALYST encouraged pt to follow up should additional needs arise in the future. WASTEWATER ANALYST LAB ANALYST remains available ongoing prn. Venita GRIMM, WASTEWATER ANALYST LAB ANALYST [phone] documented in this encounter Plan of Treatment Upcoming Encounters Date Type Department Care Team (Late st Contact Info) Description 08/06/2025 9:30 AM EDT Clinical Support Pav [facility] Head[facility] Neck [facility] Respiratory 800 [facility], 2nd [place] [address] 08/06/2025 9:50 AM EDT Office Visit [facility] Head[facility] Neck & Respiratory 800 [facility], 2nd [place] [address] Crystal Viera MD 800 [facility] [address] [place] [address] 08/06/2025 11:30 AM EDT Appointment PAV H Infusion 800 [place] [phone] 09/14/2025 9:00 AM EST Appointment PAV H Radiology 800 [place] [address] 09/14/2025 10:00 AM EST Office Visit [facility] Respiratory 800 [facility], 2nd [place] [address] Yves Cantor MD [address] [facility] [address] [place] [address] 09/14/2025 11:00 AM EST Appointment PAV CC Radiation 800 [facility]. [id number] [place] [address] Inna Chowdary MD 800 [facility] [address] [place] [address] 09/17/2025 10:30 AM EST Office Visit [facility] Head[facility] Neck & Respiratory 800 [facility] 2nd [place] [phone] Crystal Viera MD [address] [place] [address] [facility] [address] [place] [phone] 09/29/2025 2:20 PM EST Office Visit [place] [facility] [address], 2nd [place] [address] Dio Burger MD 800 [place] [address] documented as of this encounter [...] documented as of this encounter Care Teams Test Operator Relationship Specialty Start Date End Date Tapan Hill MD [address] [place] [address] PCP - General 03/11/21 Inna Chowdary MD [address] [place] [phone] Consulting Physician Radiation Therapy 06/15/25 documented as of this encounter
--- OUTSIDE RECORDS SUMMARY | 2025-07-29 13:01 | XMS_ITS | Encounter Summary ---
Author Organization [facility] Address [address] [place] [address] Care Team Providers Care Drum Drier Operator Name Role Phone Tapan Hill MD Primary Care Provid er Encounter Details Date Type Department Care Team (Latest Contact Info) Description 06/10/2025 Travel Social History Tobacco Use Types Packs/Day [...] [facility] Head[facility] Neck [facility] Respiratory [address] [address] 08/06/2025 9:50 AM EDT Office Visit [facility] Respiratory [address] [address] Crystal Viera MD 800 [facility] Tamara [address] [place] [address] 08/06/2025 11:30 AM EDT Appointment [facility] H Infusion 800 [place] [address] 09/14/2025 9:00 AM EST Appointment P[facility] H Radiology 800 [place] [address] 09/14/2025 10:00 AM EST Office Visit [facility] Res[facility] [address] [address] Yves Cantor MD [address] [place] [address] 09/14/2025 11:00 AM EST Appointment PAV CC Radiation 800 [facility]. [id number] [place] [address] Inna Chowdary MD 800 [facility] [address] [place] [address] 09/17/2025 10:30 AM EST Office Visit [facility] Head[facility] Neck & Respiratory 800 [facility], 2nd [place] [address] Crystal Viera MD 800 [facility] [address] [place] [address] 09/29/2025 2:20 PM EST Office Visit [place] [facility] [address], [address]nd [place] [address] Dio Burger MD 800 [place], [place] [phone] documented as of this encounter Visit Diagnoses [...] documented as of this encounter Care Teams Drum Drier Operator Relationship Specialty Start Date End Date Tapan Hill MD [address] [place] [address] PCP - General 03/11/21 documented as of this encounter
--- OUTSIDE RECORDS SUMMARY | 2025-07-29 13:01 | XMS_ITS | Encounter Summary ---
Author Organization [facility] Address [address] [place] [address] Care Team Providers Care Filing And Polishing Supervisor Name Role Phone Tapan Hill MD Primary Care Provid er Reason for Referral * Consultation (Routine) - Authorized Specialty Diagnoses / Procedures Referred By Contac t Referred To Contact Hematology and Oncology Diagnoses Cancer of oral cavity Psych Oncology [address] [place] [address] Phone: tel: Pav [facility] Head, Neck & Respiratory 800 [facility], 2nd [place] [address] Phone: tel: fax: Referral ID Status Reason Start Date Expiration Date Visits Requested Visits Authorized [id number] Authorized Specialty Services Required 06/12/2025 12/12/2026 1 1 Scheduling Instructions *Do Not Schedule* - This referral is for managing the [facility] Dietitian workflow. Reason for Visit * Reason Comments Resource Navigation Encounter Details Date Type Department Care Team ([facility] st Contact Info) Description 06/12/2025 Social Work Psych Oncology [address] [place] [address] Vicky Hamilton Cancer of oral cavity (CMS/HCC) (Primary Dx) Social History Tobacco Use Types [...] Adonay Mejias K documented in this encounter Miscellaneous Notes * Addendum Note - Vicky Hamilton - 06/12/2025 10:24 AM EDTAddended by: VICKY HAMILTON on: 06/12/2025 10:42 AM Modules accepted: Orders * Progress Notes - Vicky Hamilton - 06/12/2025 10:24 AM EDT Encounter Type: Phone Call Disease Status: Established Patient Clinic Location: [facility] Disease Type: Head & Neck Services Provided: Lodging Assistance Education Provided: Lodging, Aging & Disability Services [facility] Referrals: Dietitian Intervention Level: 3 Units (1 unit = 15 minutes): 2 Narrative: WASH DRILLER HELPER contacted pt regarding lodging for upcoming appts. WASH DRILLER HELPER introduced self and nature of the call. WASH DRILLER HELPER spoke with pts Ijeoma who was pleasant and engaging. Ijeoma disclosed that pt is in need ofa hotel with a kitchenette. Ijeoma additionally stated that pts daughters will be coming as well and requested a second room. WASH DRILLER HELPER expressed understanding and discussed with Ijeoma vouchered lodging partners and committed to requesting stay as well as an additional room that would be an out of pocket cost. Ijeoma was understanding and agreeable to this. WASH DRILLER HELPER committed to following up once lodging was confirmed. WASH DRILLER HELPER encouraged Ijeoma to follow up should additional needs arise. WASH DRILLER HELPER remains available ongoing prn. Vicky Hamilton DRAW IN HAND, WASH DRILLER HELPER [phone] * Progress Notes - Vicky Hamilton - 06/12/2025 10:24 AM EDT WASH DRILLER HELPER received confirmation for lodging at [facility] (confirmation 1:[id number]/confirmation 2:[id number]) . WASH DRILLER HELPER contacted pt Ijeoma to provide confirmation. Ijeoma requested this informationbe sent to her email. WASH DRILLER HELPER sent lodging information to her email and encouraged her to follow up should any additional needs arise. WASH DRILLER HELPER remains available ongoing prn. documented in this encounter Plan of Treatment Upcoming Encounters Date Type Department Care Team (Late st Contact Info) Description 08/06/2025 9:30 AM EDT Clinical Support [facility] Head[facility] Neck & Respiratory 800 [facility], 2nd [place] [address] 08/06/2025 9:50 AM EDT Office Visit [facility] Head[facility] Neck & Respiratory 800 [facility], 2nd [place] [address] Crystal Viera MD [address] Tamara [facility] [address] [place] [address] 08/06/2025 11:30 AM EDT Appointment PAV H Infusion [address] [place] [address] 09/14/2025 9:00 AM EST Appointment PAV H Radiology [address] [place] [address] 09/14/2025 10:00 AM EST Office Visit [facility] Head[facility] Neck & Respiratory 800 [facility] 2nd [place] [address] Yves Cantor MD [address] [facility] [address] [place] [address] 09/14/2025 11:00 AM EST Appointment PAV CC Radiation 800 [facility]. [id number] [place] [address] Inna Chowdary MD [address] [place] [address] [address] [place] [address] 09/17/2025 10:30 AM EST Office Visit [facility] Head[facility] Neck & Respiratory 800 [facility] 2nd [place] [address] Crystal Viera MD [address] [place] [address] [facility] [address] [place] [address] 09/29/2025 2:20 PM EST Office Visit [facility] [address], 2nd [place] [phone] Dio Burger MD 800 [place] [address] Scheduled Referrals Name Type Priority Associated Diagnoses Order Schedule Ambulatory referral to [facility] Oncology Nutrition Outpatient Referral Routine Cancer of oral cavity (CMS/HCC) 1 Occurrences starting 06/12/2025 until 12/13/2026 documented as of this encounter Visit Diagnoses [...] documented as of this encounter Care Teams Filing And Polishing Supervisor Relationship Specialty Start Date End Date Tapan Hill MD [address] [place] [address] PCP - General 03/11/21 documented as of this encounter
--- OUTSIDE RECORDS SUMMARY | 2025-07-29 13:01 | XMS_ITS | Encounter Summary ---
Author Organization [facility] Address [address] [place] [address] Care Team Providers Care Sales Inspector Name Role Phone Tapan Hill MD Primary Care Provid er Inna Chowdary MD Unavailable [phone] Encounter Details Date Type Department Care Team (Late st Contact Info) Description 06/16/2025 Orders Only Pav [facility] Head, Neck & Respiratory 800 [facility], 2nd [place] [address] Crytsal Viera MD [address] [facility] [address] [place] [address] Cancer of oral cavity (CMS/HCC) (Primary Dx) [...] No 04/15/2021 1:20 PM EDT Randell Adonay mma K * Are you blind or [...] [facility] Head[facility] Neck & Respiratory [address] [address] 08/06/2025 9:50 AM EDT Office Visit [facility] Head[facility] Neck & Respiratory [address] [address] Crystal Viera MD 800 [facility] Tam[address] [address] 08/06/2025 11:30 AM EDT Appointment PAV H Infusion 800 [place] [address] 09/14/2025 9:00 AM EST Appointment PAV H Radiology 800 [place] [address] 09/14/2025 10:00 AM EST Office Visit [facility] Head[facility] Neck & Respiratory [address] [phone] Yves Cantor MD [address] [facility] [address] [place] [address] 09/14/2025 11:00 AM EST Appointment PAV CC Radiation 800 [facility]. [id number] [place] [address] Inna Chowdary MD 800 [facility] [address] [place] [address] 09/17/2025 10:30 AM EST Office Visit [facility] Head[facility] Neck & Respiratory 800 [facility], 2nd [place] [address] Crystal Viera MD 800 [facility] [address] [place] [address] 09/29/2025 2:20 PM EST [facility] [address], 2nd [place] [address] Dio Burger MD 800 [place] [address] documented as of this encounter Results * TSH reflex FT4 (06/24/2025 1:09 PM EDT) Thyroid Stimulating Hormone, Plasma 2.78 0.40 - 4.20 uIU/mL 06/24/2025 2:22 PM EDT [facility] Blood Venous blood specimen / Unknown Venipuncture / Unknown 06/24/2025 1:09 PM EDT 06/24/2025 1:45 PM EDT us Crystal Viera MD LAB BLOOD ORDERABLES Final R esult [facility] [address] [place] [address] * (ABNORMAL) Comprehensive metabolic panel (06/24/2025 1:09 PM EDT) [facility] Glucose, Plasma 118(H) 74 - 99 mg/dL 06/24/2025 2:22 PM EDT [facility] BUN, Plasma 19 8 - 23 mg/dL 06/24/2025 2:22 PM EDT [facility] Creatinine, Plasma 0.80 0.70 - 1.20 mg/dL 06/24/2025 2:22 PM EDT [facility] BUN/Creatinine Ratio 24 06/24/2025 2:22 PM EDT [facility] Sodium, Plasma 140 136 - 145 mmol/L 06/24/2025 2:22 PM EDT [facility] Potassium, Plasma 4.6 3.6 - 4.9 mmol/L 06/24/2025 2:22 PM EDT [facility] Chloride, Plasma 104 97 - 107 mmol/L 06/24/2025 2:22 PM EDT [facility] CO2, Plasma 25 22 - 29 mmol/L 06/24/2025 2:22 PM EDT [facility] Anion Gap 11 6 - 16 mmol/L 06/24/2025 2:22 PM EDT [facility] Total Calcium, Plasma 8.9 8.9 - 10.2 mg/dL 06/24/2025 2:22 PM EDT [facility] Total Protein 6.5 6.3 - 7.9 g/dL 06/24/2025 2:22 PM EDT [facility] Albumin, Plasma 3.6 3.5 - 5.2 g/dL 06/24/2025 2:22 PM EDT [facility] AST, Plasma 28 10 - 50 U/L 06/24/2025 2:22 PM EDT [facility] Comment:Hemolyzed, result ma y be falsely increased. ALT, Plasma 20 10 - 50 U/L 06/24/2025 2:22 PM EDT [facility] Alkaline Phosphatase, Plasma 109 40 - 115 U/L 06/24/2025 2:22 PM EDT [facility] Total Bilirubin, Plasma 0.4 0.2 - 1.1 mg/dL 06/24/2025 2:22 PM EDT [facility] eGFRcr 86.7 mL/min/1.7 3m*2 06/24/2025 2:22 PM EDT [facility] Comment:Reported eGFRcr in m L/min/1.73m2 is based the CKD-EPI 2020 equation that does not use a race coefficient. Blood Venous blood specimen / Unknown Venipuncture / Unknown 06/24/2025 1:09 PM EDT 06/24/2025 1:45 PM EDT us Crystal Viera MD LAB BLOOD ORDERABLES Final R esult [facility] [address] [place] [address] * (ABNORMAL) CBC and differential (06/24/2025 1:09 PM EDT) WBC Count 7.83 3.70 - 10.30 10*3/uL LAB HEMATOLOGY METHOD 06/24/2025 1:45 PM EDT [facility] RBC Count 3.31(L) 4.60 - 6.10 10*6/uL LAB HEMATOLOGY METHOD 06/24/2025 1:45 PM EDT [facility] HGB 11.3(L) 13.7 - 17.5 g/dL LAB HEMATOLOGY METHOD 06/24/2025 1:45 PM EDT [facility] HCT 33.1(L) 40.0 - 51.0 % LAB HEMATOLOGY METHOD 06/24/2025 1:45 PM EDT [facility] Platelet Count 252 155 - 369 10*3/uL LAB HEMATOLOGY METHOD 06/24/2025 1:45 PM EDT [facility] MCV 100(H) 79 - 98 fL LAB HEMATOLOGY METHOD 06/24/2025 1:45 PM EDT [facility] MCH 34.1(H) 26.0 - 32.0 pg LAB HEMATOLOGY METHOD 06/24/2025 1:45 PM EDT [facility] MCHC 34.1 30.7 - 35.5 g/dL LAB HEMATOLOGY METHOD 06/24/2025 1:45 PM EDT [facility] RDW 12.6 11.5 - 14.5 % LAB HEMATOLOGY METHOD 06/24/2025 1:45 PM EDT [facility] MPV 9.9 8.8 - 12.5 fL LAB HEMATOLOGY METHOD 06/24/2025 1:45 PM EDT [facility] nRBC 0.0 <=0.0 per 100 WBCs LAB HEMATOLOGY METHOD 06/24/2025 1:45 PM EDT [facility] Differential Type Automated LAB HEMATOLOGY METHOD 06/24/2025 1:45 PM EDT [facility] Neutrophils % 73 % LAB HEMATOLOGY METHOD 06/24/2025 1:45 PM EDT [facility] Lymphocytes % 14 % LAB HEMATOLOGY METHOD 06/24/2025 1:45 PM EDT [facility] Monocytes % 8 % LAB HEMATOLOGY METHOD 06/24/2025 1:45 PM EDT [facility] Eosinophils % 3 % LAB HEMATOLOGY METHOD 06/24/2025 1:45 PM EDT [facility] Basophils % 1 % LAB HEMATOLOGY METHOD 06/24/2025 1:45 PM EDT [facility] Immature Granulocytes % 1 % LAB HEMATOLOGY METHOD 06/24/2025 1:45 PM EDT [facility] Neutrophils Absolute 5.77 1.60 - 6.10 10*3/uL LAB HEMATOLOGY METHOD 06/24/2025 1:45 PM EDT [facility] Lymphocytes Absolute 1.06(L) 1.20 - 3.90 10*3/uL LAB HEMATOLOGY METHOD 06/24/2025 1:45 PM EDT [facility] Monocytes Absolute 0.66 0.30 - 0.90 10*3/uL LAB HEMATOLOGY METHOD 06/24/2025 1:45 PM EDT [facility] Eosinophils Absolute 0.25 0.00 - 0.50 10*3/uL LAB HEMATOLOGY METHOD 06/24/2025 1:45 PM EDT [facility] Basophils Absolute 0.04 0.00 - 0.10 10*3/uL LAB HEMATOLOGY METHOD 06/24/2025 1:45 PM EDT [facility] Immature Granulocytes Absolute 0.05 0.00 - 0.06 10*3/uL LAB HEMATOLOGY METHOD 06/24/2025 1:45 PM EDT [facility] Blood Venous blood specimen / Unknown Venipuncture / Unknown 06/24/2025 1:09 PM EDT 06/24/2025 1:37 PM EDT Narrative [facility] - 06/24/2025 1:45 PM EDT Therapeutic decision making should be based on absolute values, rather than percentages. us Crystal Viera MD LAB BLOOD ORDERABLES Final R esult [facility] [address] [place] [address] documented in this encounter Visit Diagnoses Diagnosis [...] documented as of this encounter Care Teams Sales Inspector Relationship Specialty Start Date End Date Tapan Hill MD [address] [place] [address] PCP - General 03/11/21 Inna Chowdary MD [address] [address] Consulting Physician Radiation Therapy 06/15/25 documented as of this encounter
--- OUTSIDE RECORDS SUMMARY | 2025-07-29 13:02 | XMS_ITS | Encounter Summary ---
Author Organization [facility] Address [address] [place] [address] Care Team Providers Care Poultry Killer Name Role Phone Tapan Hill MD Primary Care Provid er Reason for Visit * Reason Comments Distress Screen Follow-up Encounter Details Date Type Department Care Team ([facility] st Contact Info) Description 06/03/2025 Social Work Psych Oncology 800 [place] [address] Rosetta Tee Social History Tobacco Use Types Packs/Day Years [...] Author No 04/15/2021 1:20 PM Adonay Graves * Do you have serious difficulty dressing or bathing? Answer Date of Assessment Author No 04/15/2021 1:20 PM Adonay Graves * Because of a physical, mental, or emotional condition, do you have serious difficulty doing errandsalone such as visiting the doctor? Answer Date of Assessment Author No 04/15/2021 1:20 PM Adonay Graves * Over the past 2 weeks, how [...] Health Questionnaire-9 Score 2 06/03/2025 9:09 AM EDT Love Phelan T * How difficult have these problems made it for you to do your work, take care of things at home, or get along with other people? Answer Date of Assessment Author Very difficult 06/03/2025 9:09 AM EDT Adonay Pehlan * How difficult have these problems made [...] encounter Miscellaneous Notes * Progress Notes - Rosetta Tee - 06/03/2025 10:38 AM EDT Encounter Type: Distress Follow Up - In Person Disease Status: Initial Psych Onc Contact Clinic Location: [facility] Disease Type: Oral Cavity & Pharynx Education Provided: Psych-Onc Services Intervention Level: 2 Units (1 unit = 15 minutes): 1 Narrative: BROKERAGE OFFICE MANAGER met with pt and spouse in exam room prior to visit to follow up on pt's recent DT screen. BROKERAGE OFFICE MANAGER introduced self and non urgent nature of visit. Pt's inquired about a possible feeding tube and home health services. BROKERAGE OFFICE MANAGER encouraged pt's to bring these concerns up to pt's MD and/latin professor. BROKERAGE OFFICE MANAGER then educated both on available psych onc services such as lodging, counselors, dieticians, etc. Pt's spouse voiced understanding and appreciation for the assistance. No further needs identified. BROKERAGE OFFICE MANAGER to remain available for any ongoing needs or support. SIRISHA Wyatt, BROKERAGE OFFICE MANAGER [facility] Psych-Oncology Services documented in this encounter Plan of Treatment Upcoming Encounters Date Type Department Care Team (Late st Contact Info) Description 08/06/2025 9:30 AM EDT Clinical Support [facility] Head[facility] Neck & Respiratory [address] [phone] 08/06/2025 9:50 AM EDT Office Visit [facility] Head[facility] Neck & Respiratory [address] [phone] Crystal Viera MD 800 [facility] [address] [place] [address] 08/06/2025 11:30 AM EDT Appointment PAV H Infusion 800 [place] [address] 09/14/2025 9:00 AM EST Appointment PAV H Radiology [address] [place] [address] 09/14/2025 10:00 AM EST Office Visit [facility] Head[facility] Neck [facility] Respiratory [address] [phone] Yves Cantor MD [address] [facility] [address] [place] [address] 09/14/2025 11:00 AM EST Appointment PAV CC Radiation 800 [facility]. [id number] [place] [address] Inna Chowdary MD [address] [place] [address] [address] [place] [address] 09/17/2025 10:30 AM EST Office Visit [facility] Head[facility] Neck & Respiratory [address] [address] Crystal Viera MD [address] [place] [address] [facility] [address] [place] [address] 09/29/2025 2:20 PM EST Office Visit [facility] [address], 2nd [place] [address] Dio Burger MD [address] [place] [address] documented as of this encounter Visit Diagnoses [...] documented as of this encounter Care Teams Poultry Killer Relationship Specialty Start Date End Date Tapan Hill MD [address] [place] [address] PCP - General 03/11/21 documented as of this encounter
--- OUTSIDE RECORDS SUMMARY | 2025-07-29 13:02 | XMS_ITS | Encounter Summary ---
Author Organization [facility] Address [address] [place] [address] Care Team Providers Care Wash Operator Name Role Phone Tapan Hill MD Primary Care Provid er Encounter Details Date Type Department Care Team (Late st Contact Info) Description 06/11/2025 Telephone P[facility] CC Radiation 800 [facility]. [id number] [place] [address] Inna Chowdary MD [address] [place] [phone] Social History Tobacco Use Types Packs/Day Years [...] Telephone Encounter - Robin Lucio - 06/11/2025 9:08 AM EDT Attempted to call pt to schedule consult per WQ. No answer, LVM with appointment information and requested pt call back to confirm appointment information. documented in this encounter Plan of Treatment Upcoming Encounters Date Type Department Care Team ([facility] st Contact Info) Description 08/06/2025 9:30 AM EDT Clinical Support [facility] Head, Neck & Respiratory 800 [facility], [address] [place] [address] 08/06/2025 9:50 AM EDT Office Visit [facility] CC Head, Neck & Respiratory 800 [facility], [address] [place] [address] Crystal Viera MD 800 [facility]ara [facility] [address] [place] [address] 08/06/2025 11:30 AM EDT Appointment P[facility] H Infusion 800 [place] [address] 09/14/2025 9:00 AM EST Appointment PAV H Radiology 800 [place] [address] 09/14/2025 10:00 AM EST Office Visit [facility] Head[facility] Neck & Respiratory 800 [facility], 2nd [place] [address] Yves Cantor MD [address] [facility] [address] [place] [address] 09/14/2025 11:00 AM EST Appointment PAV CC Radiation 800 [facility]. [id number] [place] [address] Inna Chowdary MD 800 [facility] [address] [place] [address] 09/17/2025 10:30 AM EST Office Visit [facility] Head, Neck & Respiratory 800 [facility], 2nd [place] [address] Crystal Viera MD 800 [facility] [address] [place] [address] 09/29/2025 2:20 PM EST Office Visit [place] [facility] [address], [address]nd [place] [address] Dio Burger MD 800 [place], [place] [phone] documented as of this encounter Visit Diagnoses [...] documented as of this encounter Care Teams Wash Operator Relationship Specialty Start Date End Date Tapan Hill MD [address] [place] [address] PCP - General 03/11/21 documented as of this encounter
--- OUTSIDE RECORDS SUMMARY | 2025-07-29 13:02 | XMS_ITS | Encounter Summary ---
Author Organization [facility] Address [address] [place] [address] Care Team Providers Care Compliance Paralegal Name Role Phone Tapan Hill MD Primary Care Provid er Reason for Visit * Reason Onset Date Comments Med Refill 06/09/2025 Encounter Details Date Type Department Care Team (Late st Contact Info) Description 06/09/2025 Refill [facility] Head[facility] Neck & Respiratory [address], 2nd [place] [address] Alexandro Azevedo S, PA [address] [place] [address] Social History Tobacco Use Types Packs/Day Years [...] 04/15/2021 1:20 PM EDT Randell, E scarlett Bishop documented in this encounter Miscellaneous Notes * Telephone Encounter - Latanya Cramer RN - 06/10/2025 1:31 PM EDT I called and spoke with Ms. Varelaier about Jass's upcoming appointments. I will email, and mail, information about [facility], and the panorex that need to be done for the Dr. Cantor clinic follow up. She thanked me for calling her back. * Telephone Encounter - Amanuel Tapia - 06/10/2025 12:50 PM EDT Patient Phone Message Reason for Call: Patient's spouse called requesting call back from Dr. Cantor's medical appointment scheduler regarding patient's PET scan appt. Best contact number and optimal time of day to reach caller: Ijeoma: [phone] Note: Please do not reply to this message. Follow-up communication and further actions as a result of this message need to be communicated with the patient directly, if the patient is not active onMyChart. If the patient is active on MyChart, they will receive notification of the communication/outcome via [employer]. documented in this encounter Plan of Treatment Upcoming Encounters Date Type Department Care Team ([facility] st Contact Info) Description 08/06/2025 9:30 AM EDT Clinical Support [facility] Head[facility] Neck & Respiratory [address] [address] 08/06/2025 9:50 AM EDT Office Visit [facility] Head[facility] Neck & Respiratory [address] [address] Crystal Viera MD 800 [facility] [address] [place] [address] 08/06/2025 11:30 AM EDT Appointment P[facility] H Infusion 800 [place] [address] 09/14/2025 9:00 AM EST Appointment PAV H Radiology 800 [place] [address] 09/14/2025 10:00 AM EST Office Visit [facility] Head[facility] Neck [facility] Respiratory [address] [address] Yves Cantor MD [address] [facility] [address] [place] [address] 09/14/2025 11:00 AM EST Appointment PAV CC Radiation 800 [facility]. [id number] [place] [address] Inna Chowdary MD 800 [facility] [address] [place] [address] 09/17/2025 10:30 AM EST Office Visit [facility] Head[facility] Neck & Respiratory [address] [phone] Crystal Viera MD 800 [facility] [address] [place] [address] 09/29/2025 2:20 PM EST Office Visit [place] [facility] [address], [address] [place] [address] Dio Burger MD 800 [place] [address] documented as of this encounter [...] documented as of this encounter Care Teams Compliance Paralegal Relationship Specialty Start Date End Date Tapan Hill MD [address] [place] [address] PCP - General 03/11/21 documented as of this encounter
--- OUTSIDE RECORDS SUMMARY | 2025-07-29 13:02 | XMS_ITS | Encounter Summary ---
Author Organization [facility] Address [address] [place] [address] Care Team Providers Care Supervisor Purification Name Role Phone Tapan Hill MD Primary Care Provid er Encounter Details Date Type Department Care Team (Latest Contact Info) Description 06/03/2025 Travel Social History Tobacco Use Types Packs/Day [...] Very difficult 06/03/2025 9:09 AM EDT Adonay Phelan * How difficult have these problems made [...] Upcoming Encounters Date Type Department Care Team ([facility] st Contact Info) Description 08/06/2025 9:30 AM EDT Clinical Support [facility] 800 [facility] [address]nd [place] [address] 08/06/2025 9:50 AM EDT Office Visit [facility] [address] [address] Crystal Viera MD 800 [facility] [address] [place] [address] 08/06/2025 11:30 AM EDT Appointment [facility] Infusion 800 [place] [address] 09/14/2025 9:00 AM EST Appointment [facility] Radiology 800 [place] [address] 09/14/2025 10:00 AM EST Office Visit [facility] 800 [facility] [address]nd [place] [address] Yves Cantor [facility] [address] [facility] [address] [place] [address] 09/14/2025 11:00 AM EST Appointment [facility] Radiation 800 [facility]. [id number] [place] [address] Inna Chowdary MD 800 [facility] [address] [place] [address] 09/17/2025 10:30 AM EST Office Visit [facility] 800 [facility], 2nd [place] [address] Crystal Viera MD 800 [facility] [address] [place] [address] 09/29/2025 2:20 PM EST Office Visit [place] [facility] [address], [address]nd [place] [address] Dio Burger MD 800 [place], [place] [id number] documented as of this encounter Visit Diagnoses [...] documented as of this encounter Care Teams Supervisor Purification Relationship Specialty Start Date End Date Tapan Hill MD [address] [place] [address] PCP - General 03/11/21 documented as of this encounter
--- OUTSIDE RECORDS SUMMARY | 2025-07-29 13:02 | XMS_ITS | Encounter Summary ---
Author Organization [facility] Address [address] [place] [address] Care Team Providers Care Planner Internship Name Role Phone Tapan Hill MD Primary Care Provid er Encounter Details Date Type Department Care Team ([facility] st Contact Info) Description 06/08/2025 Orders Only [facility] Respiratory [address] [place] [address] Yves Cantor MD [address] [place] [address] Social History Tobacco Use Types Packs/Day Years [...] PM EDT Randell Adonay mma K * Do you have serious [...] No 04/15/2021 1:20 PM EDT Randell, Adonay mma K documented as of this encounter Mental Status * Because of a physical, mental, or emotional condition, do you have serious difficulty concentrating, remembering, or making decisions? (5 years old or older) Answer Entry Date Author No 04/15/2021 1:20 PM EDT Randell, E mma K documented in this encounter Miscellaneous Notes * Progress Notes - Yves Cantor MD - 06/08/2025 11:57 AM EDT y documented in this encounter Plan of Treatment Upcoming Encounters Date Type Department Care Team (Late st Contact Info) Description 08/06/2025 9:30 AM EDT Clinical Support [facility] [address] [address] 08/06/2025 9:50 AM EDT Office Visit [facility] [address] [address] Crystal Viera MD [address] [place] [address] [facility] [address] [place] [address] 08/06/2025 11:30 AM EDT Appointment [facility] Infusion 800 [place] [address] 09/14/2025 9:00 AM EST Appointment [facility] Radiology 800 [place] [address] 09/14/2025 10:00 AM EST Office Visit [facility] 800 [facility], 2nd [place] [address] Yves Cantor MD [address] [facility] [address] [place] [address] 09/14/2025 11:00 AM EST Appointment P[facility] CC Radiation 800 [facility]. [id number] [place] [address] Inna Chowdary MD 800 [facility] [address] [place] [address] 09/17/2025 10:30 AM EST Office Visit [facility] 800 [facility], 2nd [place] [address] Crystal Viera MD 800 [facility] [address] [place] [address] 09/29/2025 2:20 PM EST Office Visit [place] [facility] [address], [address]nd [place] [address] Dio Burger MD 800 [place] [address] documented as of this encounter [...] documented as of this encounter Care Teams Planner Internship Relationship Specialty Start Date End Date Tapan Hill MD [address] [place] [address] PCP - General 03/11/21 documented as of this encounter
--- OUTSIDE RECORDS SUMMARY | 2025-07-29 13:02 | XMS_ITS | Encounter Summary ---
Author Organization [facility] Address [address] [id number] Care Team Providers Care Armed Guard Name Role Phone Tapan Hill MD Primary Care Provid er Encounter Details Date Type Department Care Team (Latest Contact Info) Description 06/01/2025 Travel Social History Tobacco Use Types Packs/Day Years Used Date Smoking Tobacco: Former Cigarettes 0.5 15 1 098 - 0607 Passive Smoke Exposure: Past Smokeless Tobacco: Never Alcohol Use Standard Drinks/Week Comments Never 0 (1 standard drink = 0.6 oz pur e alcohol) PHQ-2 Answer Date Recorded Patient Health Questionnaire-2 Score 0 02/07/2022 Sex and Gender Information Value Date Recorded [...] [facility] [address] [address] 08/06/2025 9:50 AM EDT Office Visit [facility] [address] [address] Crystal Viera MD 800 [facility] [address] [place] [address] 08/06/2025 11:30 AM EDT Appointment [facility] Infusion 800 [place] [address] 09/14/2025 9:00 AM EST Appointment [facility] Radiology 800 [place] [address] 09/14/2025 10:00 AM EST Office Visit [facility] [address] [address] Yves Cantor MD [address] [facility] [address] [place] [address] 09/14/2025 11:00 AM EST Appointment P[facility] CC Radiation 800 [facility]. [id number] [place] [address] Inna Chowdary MD 800 [facility] [address] [place] [address] 09/17/2025 10:30 AM EST Office Visit [facility] 800 [facility], 2nd [place] [address] Crystal Viera MD 800 [facility] [address] [place] [address] 09/29/2025 2:20 PM EST Office Visit [place] [facility] [address], [address] [place] [address] Dio Burger MD 800 [place] [address] documented as of this encounter Visit Diagnoses Not on filedocumented in this encounter Additional Health Concerns Assessment Noted Time A fall risk assessment has been complete d for the patient 07/21/2024 9:09 AM EDT A Body Mass Index follow-up plan has been documented for the patient 07/21/2024 10:08 AM EDT documented as of this encounter Care Teams Armed Guard Relationship Specialty Start Date End Date Tapan Hill MD [address] [place] [address] PCP - General 03/11/21 documented as of this encounter
[2025-07-29 13:28] LABS: Hematocrit 36.2 % (42.0-52.0); Hemoglobin 12.0 g/dL (14.1-18.0); Immature Granulocytes % 0.5 %; Mean Corpuscular HGB Conc 33.1 g/dL (31.8-35.4); Mean Corpuscular Hemoglobin 32.8 pg (27.0-31.2); Mean Corpuscular Volume 98.9 fl (80-94); Nucleated Red Blood Cells % 0 %; Platelet Count 197 K/mm3 (142-424); Red Blood Count 3.66 M/mm3 (4.60-6.20); Red Cell Distribution Width-SD 45.6 fL; White Blood Count 6.1 K/mm3 (4.8-10.8)
[2025-07-29 13:38] LABS: Alanine Aminotransferase 40 U/L (12-78); Albumin Level 4.0 g/dl (3.5-5.0); Albumin/Globulin Ratio 1.5 (1.1-1.8); Alkaline Phosphatase 129 U/L (38-126); Anion Gap 11.6 mEq/L (5-15); Aspartate Amino Transferase 47 U/L (17-59); Bilirubin,Total 0.8 mg/dl (0.2-1.3); Blood Urea Nitrogen 19 mg/dl (9-20); Calcium 9.1 mg/dl (8.4-10.2); Carbon Dioxide 29 mmol/L (22.0-30.0); Chloride 100 mmol/L (98-107); Creatinine Clearance Estimated 61 mL/min (50-200); Creatinine,Serum 0.60 mg/dl (0.66-1.25); Estimated Glomerular Filt Rate 128 ml/min (>60); GFR (African American) 155 ML/MIN (>60); Globulin 2.7 g/dL (1.3-3.2); Glucose 150 mg/dl (74-100); Lipase 46 U/L (23-300); Potassium 4.6 mmoL/L (3.5-5.1); Sodium 136 mmol/L (136-145); Total Protein,Serum 6.7 g/dl (6.3-8.2)
[2025-07-29] MEDS: IOPAMIDOL-370 (76%);100ML BOTTLE 75 ML IV (13:57)
[2025-07-29] MEDS: SODIUM CHLORIDE 0.9% 10ML SYR (RAD ONLY) 10 ML IV (13:57)
--- NOTE | 2025-07-29 14:21 | PC.NURSE ---
The pts asked if she could give his hydrocodone and water through his G tube. I consulted who requests the G tube not be used until we have scan results. He placed an order for IV pain meds.
[2025-07-29] MEDS: ONDANSETRON 4MG/2ML VIAL 4 MG IV (14:30)
[2025-07-29] MEDS: MORPHINE 4MG/ML SYRINGE 4 MG IV (14:32)
== END 2025-07-29 16:09 | disposition home or self-care (01) ==
PROVIDERS: Emergency Provider Student in an Organized Health Care Education/Training Program; PCP Surgery
DX: R10.9 Unspecified abdominal pain (principal); Z93.1 Gastrostomy status
CPT/HCPCS: 74177; 80053; 83605; 83690; 85025; 96374; 96375; 99285; J2270; J2405; Q9967